=== PATIENT | female | born 1930 | race Caucasian/White ===

== ENCOUNTER 2016-11-16 07:34 | Inpatient (IN) | payer OTHER, MEDICARE ==
[~2016-11-16] VITALS: Ht 152.4 cm; Wt 38.1 kg
[~2016-11-16 07:34] MED LIST: ABILIFY5 M1 PO; AMIODARONE HCL200 M1 PO; AUGMENTIN 500M500 MG PO; BACTRIM DS 8001 TAB PO; BUMETANIDE0.5 M1 PO; CIPRO 500MG (E500 MG PO; CIPROFLOXACIN500 MG PO; COUMADIN 1 MG TA1 MG PO; COUMADIN2 M1 PO; CYMBALTA 30 MG30 MG PO; CYMBALTA30 M1 PO; DETROL LA4 M1 PO; DULCOLAX5 M1 PO; DULOXETINE HCL60 MG PO; ELIQUIS2.5 M1 PO; FLEXERIL 5MG TAB5 MG PO; HYDROCODON-ACE1 EAC6 PO; LOPRESSOR 12.12.5 MG PO; LOPRESSOR 25MG25 MG PO; LYRICA PO; MACROBID100 MG PO; MOVANTIK25 M1 PO; NEURONTIN100 MG PO; NORCO 325 MG-51 TAB PO; OXYCODONE H5 MG/5 ML PO; PERCOCET 325 MG1 TA2 PO; PROTONIX40 M3 PO; ROZEREM8 MG PO; TRAZODONE100 MG PO; TYLENOL XSTR500 MG PO; VALIUM2 M1 PO; VALIUM2 MG PO; VALTREX500 M1 PO; VALTREX500 MG PO; VITAMIN D1000 IU PO; WARFARIN SODIUM1 M1 PO; XANAX 0.25MG0.25 MG PO; ZITHROMAX500 MG PO
--- NOTE | 2016-11-16 07:42 | NUR ---
86 Y/O FEMALE C/O URI SYMPTOMS X 2 DAYS; SAW PRIMARY CARE DOCTOR AND WAS TOLD SHE HAS "BORDERLINE PNEUMONIA". ON ANTIBIOTICS BUT STATES THE COUGH CONTINUES, NOW WITH GREEN PHLEGM. REPORTS NO APPETITE AND NAUSEA. DENIES FEVERS.
--- NOTE | 2016-11-16 07:45 | ED INFLUENZA/URI COMPLAINT ---
History of Present Illness General Chief Complaint: Upper Respiratory Sx/Fever Stated Complaint: URI X2WKS Source: patient Exam Limitations: no limitations Vital Signs & Intake/Output Vital Signs & Intake/Output Vital Signs Date Time Temp Pulse Resp B/P Pulse O2 O2 Flow FiO2 Ox Delivery Rate 11/17 09 73 132/68 11/17 09 73 132/68 11/17 0631 97.6 92 20 144/80 94 Nasal 2.0L Cannula 11/17 0000 94 Nasal 2.0L Cannula 11/169 97.3 88 22 186/98 94 Nasal 2.0L Cannula 11/16 2117 88 186/98 11/16 2009 Room Air 11/16 1424 98.4 79 18 140/68 90 Room Air 11/16 1143 97.5 75 20 130/70 92 Room Air 11/16 1115 99.2 88 20 160/70 99 Room Air Room Air 11/16 1110 88 160/70 11/16 1110 88 160/70 ED Intake and Output 11/17 0000 11/16 1200 Intake Total 350 0 Output Total 1250 Balance -900 0 Intake, IV 10 Intake, Oral 340 0 Output, Urine 1250 Patient 84 lb 0.01 oz Weight Allergies Coded Allergies: Iodinated Contrast Media - Oral and (IODINATED CONTRAST MEDIA - IV DYE) (Severe, HEART STOPPED 03/22/16) morphine (Severe, COLLAPSE 11/05/15) Reconcile Medications Amiodarone (Cordarone) 200 MG TABLET 1 TAB PO DAILY afib (Reported) Apixaban (Eliquis) 2.5 MG TABLET 1 TAB PO BID BLOOD THINNER (Reported) Aripiprazole (Abilify) 5 MG TABLET 5 MG PO DAILY ANXIETY (Reported) Bisacodyl (Dulcolax) 5 MG TABLET.DR 1 TAB PO QAM GI (Reported) Bumetanide 0.5 MG TABLET 1 TAB PO DAILY WATER PILL (Reported) Cholecalciferol (Vitamin D3) 1,000 UNIT TABLET 2 TAB PO DAILY BONE HEALTH Duloxetine Hydrochloride (Cymbalta) 30 MG CAPSULE.DR 90 MG PO DAILY MENTAL HEALTH (Reported) Hydrocodone/Acetaminophen (Hydrocodon-Acetaminoph 7.5-300) 7.5 MG-300 MG TABLET 1 TAB PO Q8P PRN PAIN (Reported) Metoprolol Tartrate (Lopressor) 25 MG TABLET 12.5 MG PO BID BLOOD PRESSURE Naloxegol Oxalate (Movantik) 25 MG TABLET 1 TAB PO DAILY CONSTIPATION ( Reported) Pantoprazole Sodium (Protonix) 40 MG TABLET.DR 1 TAB PO DAILY REFLUX ( Reported) Reason to Stop at ADM: ON OMEPRAZOLE Valacyclovir Hydrochloride (Valtrex) 500 MG TABLET 1 TAB PO AT BEDTIME SHINGLES PREVENTION (Reported) Triage Note: 86 Y/O FEMALE C/O URI SYMPTOMS X 2 DAYS; SAW PRIMARY CARE DOCTOR AND WAS TOLD SHE HAS "BORDERLINE PNEUMONIA". ON ANTIBIOTICS BUT STATES THE COUGH CONTINUES, NOW WITH GREEN PHLEGM. REPORTS NO APPETITE AND NAUSEA. DENIES FEVERS. Triage Nurses Notes Reviewed? yes Onset: Gradual Duration: week(s): (1), worse persistent since (LAST 2 DAYS) Timing: recent history Severity: severe Associated Symptoms: cough, shortness of breath HPI: This is an 86-year-old female presents here with progressive worsening symptoms of cough, productive sputum of yellowish green material, night sweats and subjective fevers. She does short of breath and has been able sleep last 2 nights. She also complains of very diminished appetite and she feels nauseous. She is on day 5 of ciprofloxacin was given to her by her primary care doctor for pneumonia. 5 days ago she had an outpatient x-ray that that she had a "touch of pneumonia". Denies any chest pain or palpitations. She admits to feeling very weak. Past History Travel History Traveled to [place] past 21 day No Medical History Any Pertinent Medical History? see below for history Neurological: NONE EENT: NONE Cardiovascular: AFIB, CHF, hypertension, ANGIOPLASTY Respiratory: pneumonia Gastrointestinal: GERD Hepatic: NONE Renal: NONE Musculoskeletal: CHRONIC RIGHT SHOULDER PAIN, DEFORMITY, HISTORY OF HUMERUS FRACTURE Psychiatric: chronic pain disorder, depression Blood Disorders: NONE Cancer(s): NONE Other Medical Hx: Shingles History of MRSA: No History of VRE: No History of CDIFF: No Surgical History Surgical History: ANGIOPLASTY R ARM SURGERY right shoulder surgery Psychosocial History Who do you live with Patient/Self Services at Home [employer] What is your primary language Ukrainian Tobacco Use: Quit >30 days ago ETOH Use: 2 DRINKS PER DAY OF WHITE WINE Family History Family History, If Any: MOTHER FH: CAD (coronary artery disease) FATHER FH: CAD (coronary artery disease) Hx Contributory? No Review of Systems Review of Systems Constitutional: Reports: chills. EENTM: Reports: no symptoms. Respiratory: Reports: cough, short of breath, sputum production. Cardiovascular: Denies: chest pain. GI: Reports: nausea. Denies: abdominal pain, vomiting. Genitourinary: Reports: no symptoms. Musculoskeletal: Reports: no symptoms. Skin: Reports: no symptoms. Neurological/Psychological: Reports: no symptoms. Hematologic/Endocrine: Denies: bruising, bleeding, polyuria, polydipsia. Immunologic/Allergic: Denies: splenectomy. All Other Systems: Reviewed and Negative Physical Exam Physical Exam General Appearance: well developed/nourished, alert, awake Head: atraumatic, normal appearance Eyes: Bilateral: normal appearance, PERRL, EOMI. Ears, Nose, Throat: normal ENT inspection Neck: normal inspection, supple, full range of motion Respiratory: decreased breath sounds, wheezing Cardiovascular: regular rate/rhythm Peripheral Pulses: 2+ radial (R), 2+ radial (L) Gastrointestinal: normal bowel sounds, soft, non-tender Extremities: normal inspection, normal capillary refill, normal range of motion, no edema Neurologic/Psych: no motor/sensory deficits, awake, alert, oriented x 3 Skin: intact, normal color, warm/dry Core Measures Severe Sepsis Present: No Septic Shock Present: No ED Sepsis Exam Date of Focused Sepsis Exam: 11/16/16 Time of Focused Sepsis Exam: 0800 Sepsis Cardiac Exam: Regular Rate/Rhythm Sepsis Resp Exam: WHEEZING Sepsis Cap Refill Exam: <2 Sec Sepsis Peripheral Pulse Exam: Normal Sepsis Peripheral Pulse Location: Radial Sepsis Skin Color Exam: Normal for Ethnicity Skin Temp/Moisture Exam: Warm/Dry Progress Differential Diagnosis: pneumonia, ZION, DEHYDRATION, FAILURE OF OUTPATIENT ANTIBIOTIC TREATMENT Plan of Care: Orders Procedure Date/time Status THERAPIST ORDERS 11/16 2022 Complete OXYGEN SETUP (GEN) 11/16 2022 Complete RT: Reevaluation 11/16 2009 Active RT: Evaluation 11/16 2009 Active Vital Signs 11/16 1243 Active Teach/Educate 11/16 1243 Active Pain Treatment and Response 11/16 1243 Active Nutritional Intake, Monitor 11/16 124 Active Isolation 11/16 1243 Active Intake & Output 11/16 1243 Active Patient Care Conference 11/16 1243 Active Activity/Ambulation 11/16 1243 Active Current Medications Sig/Letty Start time Last Medication Dose Stop Time Status Admin Mirtazapine 7.5 MG AT BEDTIME PRN 11/17 1045 CAN (Remeron) Ramelteon 8 MG AT BEDTIME PRN 11/17 1045 AC (Rozerem) Albuterol Sulfate 3 ML TID PRN 11/16 2044 AC (Proventil) Laboratory Tests 11/16/16 1351: Urine Color YEL, Urine Clarity CLEAR, Urine pH 6.5, Ur Specific Mcfarland 1.025, Urine Protein NEG, Urine Ketones NEG, Urine Nitrite NEG, Urine Bilirubin NEG, Urine Urobilinogen 0.2, Ur Leukocyte Esterase NEG, Ur Microscopic EXAM NOT REQUIRED, Urine Hemoglobin NEG, Urine Glucose NEG Microbiology 11/16 135 URINE ROUT: Legionella Antigen - RES 11/16 135 URINE ROUT: Streptococcus pneumoniae Antigen (M - RES 11/16 135 URINE ROUT: Urine Culture - RES 11/16 1300 LOWER RESP: Respiratory Culture - RES GRAM NEGATIVE RODS YEAST 11/16 1300 LOWER RESP: Gram Stain - RES Diagnostic Imaging: Viewed by Me: Radiology Read. Discussed w/RAD: Radiology Read. CXR Impression: PATIENT: SANDHYA COLLINS PRESENT AGE: 86 PATIENT ACCOUNT NO: [id number] : 29 LOCATION: [facility] ORDERING PHYSICIAN: MERLY MAGALLON MD SERVICE DATE: 11/16/16 EXAM TYPE: RAD - XRY-CHEST XRAY , PA AND LATERAL EXAMINATION: XR CHEST CLINICAL INFORMATION: Cough and sweats. Assess for pneumonia. COMPARISON: Chest x-ray 08/11/2016. TECHNIQUE: AP and lateral views of the chest were obtained. FINDINGS: The lung chaudhari are hyperexpanded bilaterally, and there is flattening of the hemidiaphragms and retrosternal air trapping, consistent with COPD. The study redemonstrates the opacification in the right upper lobe medially, consistent with pleural thickening and bronchiectatic changes. These findings appear similar compared to the prior study. There is a linear opacity in the left lower lobe, consistent with atelectasis and demonstrated on prior imaging. There is new opacity in the right midzone extending laterally. Calcification and bronchiectasis in the right middle lobe are redemonstrated, although the right lobe is suboptimally assessed as the patient is unable to lift her right arm. The cardiac silhouette is normal in size. The aortic arch is calcified and unfolded. There are no pleural effusions. There are stable sequelae of a right shoulder hemiarthroplasty. There are multilevel degenerative changes in the thoracic spine. IMPRESSION: 1. There is new patchy opacity in the right midzone, which may be consistent with developing consolidation. 2. The study redemonstrates bronchiectasis and pleural thickening in the right upper lobe medially and there is calcification and atelectasis in the right middle lobe. There is evidence of COPD. DICTATED BY: CAM STILL MD DATE/TIME DICTATED:11/16/16822 [employer] DIRECTOR:OZZIE DATE/TIME TRANSCRIBED:11/16/16822 CONFIDENTIAL, DO NOT COPY WITHOUT APPROPRIATE AUTHORIZATION. <Electronically signed in Other Vendor System> SIGNED BY: CAM STILL MD 11/16/16835 Initial ED EKG: NSR, INFERIOR/ANTERIOR Q WAVES Prior EKG: unchanged Departure Departure Time of Disposition: 905 Disposition: STILL A PATIENT Condition: Stable Clinical Impression Primary Impression: Pneumonia Referrals: MICHELLE HENDRICKS,MARINO Carty (PCP/Family) Departure Forms: Customer Survey General Discharge Information Admission Note Spoke With: TAYLOR ECHAVARRIA MD Documentation of Exam: Documentation of any treatments & extenuating circumstances including Concerns Regarding Discharge (functional status, medication knowledge or non-compliance, living conditions, etc.) that warrant an admission rather than observation: [TRC /NEBS, IV ABX, OXYGEN, GENTLE HYDRATION, MONITOR I/O, F/U CULTURES]
--- NOTE | 2016-11-16 07:47 | NUR ---
DR. MAGALLON AT BEDSIDE FOR EVAL.
--- NOTE | 2016-11-16 07:59 | NUR ---
PT TO XRAY VIA STRETCHER NOW.
--- NOTE | 2016-11-16 08:23 | NUR ---
BLOOD WORK DRAWN AND SENT TO LAB: SST, LAV, BLUE, RAMIREZ AND FIRST SET OF BLOOD CULTURES. RESP AT BEDSIDE FOR TREATMENT.
[2016-11-16 08:33] LABS: ABSOLUTE BASOPHIL COUNT 0 /CUMM (0.0-0.2); ABSOLUTE EOSINOPHIL COUNT 0.1 /CUMM (0.0-0.7); ABSOLUTE GRANULOCYTE CT 8.7 /CUMM (1.4-6.5); ABSOLUTE LYMPH COUNT 0.9 /CUMM (1.2-3.4); ABSOLUTE MONOCYTE COUNT 0.8 /CUMM (0.10-0.60); BASOPHIL % 0.2 % (0.0-2.0); EOSINOPHIL % 0.9 % (0-5); GRANULOCYTE % 82.4 % (42.2-75.2); HEMATOCRIT 42.9 % (37-47); MEAN CORPUSCULAR VOLUME 96.8 FL (81.0-99.0); MEAN PLATELET VOLUME 7.6 FL (7.4-10.4); PLATELET COUNT 281 /CUMM (130-400); RED BLOOD CELL CT 4.43 /CUMM (4.20-5.40); WHITE BLOOD CELL COUNT 10.5 /CUMM (4.8-10.8)
--- NOTE | 2016-11-16 08:36 | RADIOLOGY REPORT ---
EXAMINATION: XR CHEST CLINICAL INFORMATION: Cough and sweats. Assess for pneumonia. COMPARISON: Chest x-ray 08/11/2016. TECHNIQUE: AP and lateral views of the chest were obtained. FINDINGS: The lung chaudhari are hyperexpanded bilaterally, and there is flattening of the hemidiaphragms and retrosternal air trapping, consistent with COPD. The study redemonstrates the opacification in the right upper lobe medially, consistent with pleural thickening and bronchiectatic changes. These findings appear similar compared to the prior study. There is a linear opacity in the left lower lobe, consistent with atelectasis and demonstrated on prior imaging. There is new opacity in the right midzone extending laterally. Calcification and bronchiectasis in the right middle lobe are redemonstrated, although the right lobe is suboptimally assessed as the patient is unable to lift her right arm. The cardiac silhouette is normal in size. The aortic arch is calcified and unfolded. There are no pleural effusions. There are stable sequelae of a right shoulder hemiarthroplasty. There are multilevel degenerative changes in the thoracic spine. IMPRESSION: 1. There is new patchy opacity in the right midzone, which may be consistent with developing consolidation. 2. The study redemonstrates bronchiectasis and pleural thickening in the right upper lobe medially and there is calcification and atelectasis in the right middle lobe. There is evidence of COPD.
--- NOTE | 2016-11-16 08:38 | NUR ---
FLU SWAB AND SECOND SET OF BLOOD CULTURES SENT TO LAB NOW.
--- NOTE | 2016-11-16 09:50 | NUR ---
SERO FROM HOUSE STAFF AT BEDSIDE FOR EVAL.
--- NOTE | 2016-11-16 10:05 | History & Physical ---
ILDEFONSO HENDRICKS,SAMM 11/16/16 1005: General Information and HPI MD Statement: I have seen and personally examined SANDHYA COLLINS and documented this H&P. The patient is a 86 year old F who presented with a patient stated chief complaint of [I have a bad cough]. History of Present Illness: This is an 86-year-old lady with a history of diastolic heart failure, atrial fibrillation, anxiety, depression, severe osteoporosis, right frozen shoulder secondary to fall over 4 years ago that presents to the emergency room this morning for evaluation with a chief complaint of cough and tactile fevers over the course of the last 5 days. She states that she saw her primary care physician who started her on ciprofloxacin 5 days ago but her symptoms have not alleviated. She admits to having greenish sputum which is now switch to yellow. States that she does have tactile fevers however has not recorded any temperatures at home. Also admits to mild shortness of breath. No exacerbating or alleviating factors. Her lunchroom monitor is Dr. Hensley. Allergies/Medications Allergies: Coded Allergies: Iodinated Contrast Media - Oral and (IODINATED CONTRAST MEDIA - IV DYE) (Severe, HEART STOPPED 03/22/16) morphine (Severe, COLLAPSE 11/05/15) Past History Travel History Traveled to [place] past 21 day No Medical History Neurological: NONE EENT: NONE Cardiovascular: AFIB, CHF, hypertension, ANGIOPLASTY Respiratory: pneumonia Gastrointestinal: GERD Hepatic: NONE Renal: NONE Musculoskeletal: CHRONIC RIGHT SHOULDER PAIN, DEFORMITY, HISTORY OF HUMERUS FRACTURE Psychiatric: chronic pain disorder, depression Blood Disorders: NONE Cancer(s): NONE Other Medical Hx: Shingles History of MRSA: No History of VRE: No History of CDIFF: No Surgical History Surgical History: ANGIOPLASTY R ARM SURGERY right shoulder surgery Past Family/Social History Family History Relations & Conditions if any MOTHER FH: CAD (coronary artery disease) FATHER FH: CAD (coronary artery disease) Psychosocial History 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 Needs Assist: toileting, bathing. Ambulation: walker IADLs Independent: telephone. Needs Assist: shopping, housework, finances, food prep, transportation, medication admin. Review of Systems Review of Systems Constitutional: Reports: see HPI. Exam & Diagnostic Data Last 24 Hrs of Vital Signs/I&O Vital Signs Date Time Temp Pulse Resp B/P Pulse O2 O2 Flow FiO2 Ox Delivery Rate 11/16 0900 93 Room Air Room Air 11/16 0857 97.0 75 14 128/62 93 Room Air 11/16 0821 97 11/16 0738 96.6 72 16 128/56 94 Room Air Intake & Output 11/16 1600 11/16 0800 11/16 0000 Intake Total 0 Output Total Balance 0 Intake, Oral 0 Patient 84 lb 0.01 oz Weight Physical Exam General Appearance Alert, Oriented X3, Cooperative, Mild Distress HEENT Atraumatic, PERRLA, EOMI Cardiovascular Regular Rate, Normal S1, Normal S2 Lungs B/L FAINT WHEEZING AND DIFFUSE RONCHII Abdomen Normal Bowel Sounds, Soft, No Tenderness Extremities No Clubbing, No Cyanosis, No Edema Last 24 Hrs of Labs/Maxim: Laboratory Tests 11/16/16 0820: Anion Gap 13, Estimated GFR > 60, BUN/Creatinine Ratio 17.5, Glucose 93, Calcium 9.7, Total Bilirubin 0.7, AST 37 H, ALT 42, Alkaline Phosphatase 113, Total Protein 8.0, Albumin 4.3, Globulin 3.7, Albumin/Globulin Ratio 1.2, CBC w Diff NO MAN DIFF REQ, RBC 4.43, MCV 96.8, MCH 33.0 H, RDW 15.0 H, MPV 7.6, Gran % 82.4 H, Lymphocytes % 9.0 L, Monocytes % 7.5, Eosinophils % 0.9, Basophils % 0.2, Absolute Granulocytes 8.7 H, Absolute Lymphocytes 0.9 L, Absolute Monocytes 0.8 H, Absolute Eosinophils 0.1, Absolute Basophils 0, PUBS MCHC 34.0 Microbiology 11/16 917 LOWER RESP: Respiratory Culture - ORD 11/16 917 LOWER RESP: Gram Stain - ORD 11/16 829 NASOPHARYN: Influenza Virus A & B Rapid Smear - COMP 11/16 829 BLOOD: Blood Culture - RECD 11/17 819 BLOOD: Blood Culture - RECD Diagnostic Data EKG Results Rate 68, P of 160, tours 88, QTC 447 and sign sinus rhythm, left atrial abnormality, old Q waves in leads 3, aVF, V2, V3 CXR Results PATIENT: SANDHYA COLLINS PRESENT AGE: 86 PATIENT ACCOUNT NO: [id number] : 29 LOCATION: [facility] ORDERING PHYSICIAN: MERLY MAGALLON MD SERVICE DATE: 11/16/16 EXAM TYPE: RAD - XRY-CHEST XRAY, PA AND LATERAL EXAMINATION: XR CHEST CLINICAL INFORMATION: Cough and sweats. Assess for pneumonia. COMPARISON: Chest x-ray 08/11/2016. TECHNIQUE: AP and lateral views of the chest were obtained. FINDINGS: The lung chaudhari are hyperexpanded bilaterally, and there is flattening of the hemidiaphragms and retrosternal air trapping, consistent with COPD. The study redemonstrates the opacification in the right upper lobe medially, consistent with pleural thickening and bronchiectatic changes. These findings appear similar compared to the prior study. There is a linear opacity in the left lower lobe, consistent with atelectasis and demonstrated on prior imaging. There is new opacity in the right midzone extending laterally. Calcification and bronchiectasis in the right middle lobe are redemonstrated, although the right lobe is suboptimally assessed as the patient is unable to lift her right arm. The cardiac silhouette is normal in size. The aortic arch is calcified and unfolded. There are no pleural effusions. There are stable sequelae of a right shoulder hemiarthroplasty. There are multilevel degenerative changes in the thoracic spine. IMPRESSION: 1. There is new patchy opacity in the right midzone, which may be consistent with developing consolidation. 2. The study redemonstrates bronchiectasis and pleural thickening in the right upper lobe medially and there is calcification and atelectasis in the right middle lobe. There is evidence of COPD. DICTATED BY: CAM STILL MD DATE/TIME DICTATED:11/16/16822 STEWARD/STEWARDESS BATH:OZZIE DATE/TIME TRANSCRIBED:11/16/16822 CONFIDENTIAL, DO NOT COPY WITHOUT APPROPRIATE AUTHORIZATION. <Electronically signed in Other Vendor System> SIGNED BY: CAM STILL MD 11/16/16 0836 Assessment/Plan Assessment: Assessment- 1. Community-acquired pneumonia 2. Atrial fibrillation 3. Stage I diastolic heart failure, chronic 4. Chronic pain secondary to right frozen shoulder and severe osteoporosis 5. Hypertension 6. 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 GERD Plan- General med admit Vitals per protocol Hackett culture- urinalysis, urine culture, urine strep and Legionella antigens; blood cultures 2, flu swab, sputum culture TRC evaluation IV ceftriaxone and Zithromax Continue all home meds Pain pathway, continue patient's home pain meds Heart healthy diet DVT prophylaxis being addressed with Christel DNR/DNI As Ranked By This Provider Problem List: 1. Pneumonia Core Measures/Miscellaneous Acute Coronary Syndrome ACS Diagnosis: No Cerebrovascular Accident CVA/TIA Diagnosis: No Congestive Heart Failure CHF Diagnosis: No Venous Thromboembolism VTE Risk Factors: Acute medical illness, Age > 40 No [facility] VTE prophylaxis d/t: No contraindications No VTE Pharm Prophylaxis d/t: No contraindications VTE Diagnosis: No VTE Type: NONE VTE Confirmed by (Test): NONE Severe Sepsis Severe Sepsis Present: No Septic Shock Septic Shock Present: No Miscellaneous Documentation Attending Case Discussed With: DR. HAMMOND Primary Care Physician: MARINO MARTINEZ MD Patient sees these Specialists DR. HENSLEY (CARDIO) Level of Patient Care: General Medicine Resident Review Statement Resident Statement: examined this patient RAFIQ HAMMOND MD 11/16/16 1218: General Information and HPI Allergies/Medications Home Med list Amiodarone (Cordarone) 200 MG TABLET 1 TAB PO DAILY afib (Reported) Apixaban (Eliquis) 2.5 MG TABLET 1 TAB PO BID BLOOD THINNER (Reported) Aripiprazole (Abilify) 5 MG TABLET 5 MG PO DAILY ANXIETY (Reported) Bisacodyl (Dulcolax) 5 MG TABLET.DR 1 TAB PO QAM GI (Reported) Bumetanide 0.5 MG TABLET 1 TAB PO DAILY WATER PILL (Reported) Cholecalciferol (Vitamin D3) 1,000 UNIT TABLET 2 TAB PO DAILY BONE HEALTH Duloxetine Hydrochloride (Cymbalta) 30 MG CAPSULE.DR 90 MG PO DAILY MENTAL HEALTH (Reported) Hydrocodone/Acetaminophen (Hydrocodon-Acetaminoph 7.5-300) 7.5 MG-300 MG TABLET 1 TAB PO Q8P PRN PAIN (Reported) Metoprolol Tartrate (Lopressor) 25 MG TABLET 12.5 MG PO BID BLOOD PRESSURE Naloxegol Oxalate (Movantik) 25 MG TABLET 1 TAB PO DAILY CONSTIPATION ( Reported) Pantoprazole Sodium (Protonix) 40 MG TABLET.DR 1 TAB PO DAILY REFLUX ( Reported) Reason to Stop at ADM: ON OMEPRAZOLE Valacyclovir Hydrochloride (Valtrex) 500 MG TABLET 1 TAB PO AT BEDTIME SHINGLES PREVENTION (Reported) Attending MD Review Statement Attending Statement Attending MD Statement: examined this patient, discuss w/resident/PA/OBSTETRICIAN, agreed w/resident/PA/OBSTETRICIAN, discussed with family, reviewed EMR data (avail), reviewed images, amended to note Attending Assessment/Plan: 86 y/o F with pmh sig for diastolic heart failure, atrial fibrillation on Eliquis, anxiety, depression, severe osteoporosis, history of fall 4 years ago that led to frozen right shoulder who completely treated for possible bronchitis as an outpatient with ciprofloxacin by her primary care doctor who continues to feel poor with coughing productive of yellowish sputum as well as subjective fevers. Patient has been feeling weak and tired and has no appetite. He was also feeling nauseous every morning. She was in the emergency room because she was not getting better. In the emergency room she was afebrile with white count normal but her chest x-ray was consistent with a new patchy opacity in the right midzone, which may be consistent with developing consolidation. She denies any chest pain but does complain of chronic back pain. Her son is present at the bedside. Vital Signs Date Time Temp Pulse Resp B/P Pulse O2 O2 Flow FiO2 Ox Delivery Rate 11/16 1143 97.5 75 20 130/70 92 Room Air 11/16 1115 99.2 88 20 160/70 99 Room Air Room Air 11/16 1110 88 160/70 11/16 1110 88 160/70 11/16 0900 93 Room Air Room Air 11/16 0857 97.0 75 14 128/62 93 Room Air 11/16 0821 97 11/16 0738 96.6 72 16 128/56 94 Room Air on exam; aox3, nad. cv; s1,s2, rrr resp; + crackles at right base upto mid lung zone. abd: soft, nt, bs+ ext; no edema. Laboratory Tests 11/16 0820 Chemistry Sodium (137 - 145 mmol/L) 136 L Potassium (3.5 - 5.1 mmol/L) 4.1 Chloride (98 - 107 mmol/L) 97 L Carbon Dioxide (22 - 30 mmol/L) 26 Anion Gap (5 - 16) 13 BUN (7 - 17 mg/dL) 14 Creatinine (0.5 - 1.0 mg/dL) 0.8 Estimated GFR (>60 ml/min) > 60 BUN/Creatinine Ratio (7 - 25 %) 17.5 Glucose (65 - 99 mg/dL) 93 Calcium (8.4 - 10.2 mg/dL) 9.7 Total Bilirubin (0.2 - 1.3 mg/dL) 0.7 AST (14 - 36 U/L) 37 H ALT (9 - 52 U/L) 42 Alkaline Phosphatase (<127 U/L) 113 Troponin I (< 0.11 ng/ml) < 0.01 Total Protein (6.3 - 8.2 g/dL) 8.0 Albumin (3.5 - 5.0 g/dL) 4.3 Globulin (1.9 - 4.2 gm/dL) 3.7 Albumin/Globulin Ratio (1.1 - 2.2 %) 1.2 Hematology CBC w Diff NO MAN DIFF REQ WBC (4.8 - 10.8 /CUMM) 10.5 RBC (4.20 - 5.40 /CUMM) 4.43 Hgb (12.0 - 16.0 G/DL) 14.6 Hct (37 - 47 %) 42.9 MCV (81.0 - 99.0 FL) 96.8 MCH (27.0 - 31.0 PG) 33.0 H RDW (11.5 - 14.5 %) 15.0 H Plt Count (130 - 400 /CUMM) 281 MPV (7.4 - 10.4 FL) 7.6 Gran % (42.2 - 75.2 %) 82.4 H Lymphocytes % (20.5 - 51.1 %) 9.0 L Monocytes % (1.7 - 9.3 %) 7.5 Eosinophils % (0 - 5 %) 0.9 Basophils % (0.0 - 2.0 %) 0.2 Absolute Granulocytes (1.4 - 6.5 /CUMM) 8.7 H Absolute Lymphocytes (1.2 - 3.4 /CUMM) 0.9 L Absolute Monocytes (0.10 - 0.60 /CUMM) 0.8 H Absolute Eosinophils (0.0 - 0.7 /CUMM) 0.1 Absolute Basophils (0.0 - 0.2 /CUMM) 0 PUBS MCHC (33.0 - 37.0 G/DL) 34.0 CXR: IMPRESSION: 1. There is new patchy opacity in the right midzone, which may be consistent with developing consolidation. 2. The study redemonstrates bronchiectasis and pleural thickening in the right upper lobe medially and there is calcification and atelectasis in the right middle lobe. There is evidence of COPD. EKG>>> Sinus rythm. No acute ST T changes. A/P; 86 y/o F with pmh sig for diastolic heart failure, atrial fibrillation, anxiety, depression, severe osteoporosis, history of fall 4 years ago that led to frozen right shoulder who is admitted with community-acquired pneumonia. Patient will be admitted to medicine floor. Flu swab negative. Sputum cultures will be obtained. Patient will be started on IV ceftriaxone and azithromycin and she received these antibiotics in the emergency room. Please order TRC nebs. Currently she is not requiring any oxygen. Please confirm and continue her home medications. Patient will be encouraged to ambulate. DVT prophylaxis: Christel. Code: DNR/I.
--- NOTE | 2016-11-16 10:23 | NUR ---
[facility] ASSIGNMENT [phone]
--- NOTE | 2016-11-16 10:37 | NUR ---
MEDS WILL BE READY IN TEN MINUTES PER PHARM.
--- NOTE | 2016-11-16 10:57 | NUR ---
REPORT GIVEN TO CARLOS SMITH.
[2016-11-16 11:43] VITALS: BP 130/70
--- NOTE | 2016-11-16 12:11 | Admission Certification ---
Admission Certification Certification Statement - As attending physician, I certify that at the time of - admission, based on clinical presentation, severity of - symptoms, need for further diagnostic testing and - therapeutic interventions, and risk of adverse outcomes - without in-hospital treatment, in my clinical assessment, - this patient requires an acute hospital stay for a minimum - of two nights or longer. I have also considered psychsocial - factors such as support system, advanced age, financial - issues, cognitive issues, and failed out-patient treatments, - past re-admission history, safety of patient, and lack of - compliance as applicable. Specific rationale supporting this admission is: Patient admitted with community acquired pneumonia failing outpatient treatment. Needs IV antibiotics.
--- NOTE | 2016-11-16 13:32 | NUR ---
PATIENT ADMITTED TO FLOOR ROOM 223-1 AT 1230 FROM ER. PATIENT ALERT AND ORIENTED. PATIENT VITALS ARE STABLE AND ORIENTATED TO ROOM AND VERBALIZES UNDERSTANDING.
[2016-11-16 14:24] VITALS: BP 140/68
--- NOTE | 2016-11-16 22:00 | NUR ---
PT O2SAT 85% RA, RESPIRATORY PLACED ON 2LNC. PT O2SAT @ 94% 2LNC. WILL CONTINUE TO MONITOR THIS SHIFT.
[2016-11-16 22:39] VITALS: BP 186/98
--- NOTE | 2016-11-17 | NUR ---
AT 2300, PT DID NOT REMEMBER 2200 MEDICATIONS AND THAT SHE TOOK THEM. REFUSED ALPS, AND ATTEMPTED TO AMBULATE. PT MAX Ax1 TO BSC. BED ALARM IN PLACE.
--- NOTE | 2016-11-17 02:36 | NUR ---
0200, PT GOT AGITATED THAT SHE COULD NOT WALK AROUND AND STARTED SHAKING THE SIDE RAILS. SHE DID NOT HAVE TO USE THE BSC, COULD NOT SAY WHERE SHE WANTED TO GO, JUST WANTED TO GO. STAFF SAT WITH HER UNTIL SHE FELL ASLEEP. ANNIKA JENSEN MD NOTIFIED. WILL CONTINUE TO MONITOR.
[2016-11-17 06:31] VITALS: BP 144/80
--- NOTE | 2016-11-17 07:06 | PN- Housestaff ---
Subjective Follow-up For: Community acquired pneumonia Subjective: No acute events overnight. Patient seen and examined today. She feels better overall. She continues to have a cough, but it is productive of only scant clear sputum and improved since yesterday. Her appetite continues to be poor. SOB has improved as well but she remains on 2 L NC. Of note patient reports chronic cough productive of yellow sputum for the past few months. Review of Systems Constitutional: Reports: see HPI. Objective Last 24 Hrs of Vital Signs/I&O Vital Signs Date Time Temp Pulse Resp B/P Pulse O2 O2 Flow FiO2 Ox Delivery Rate 11/17 1436 92 Nasal 2.0L Cannula 11/17 1407 98.1 74 20 120/80 94 Nasal 2.0L Cannula 11/17 0926 73 132/68 11/17 0926 73 132/68 11/17 0800 Nasal 2.0L Cannula 11/17 0631 97.6 92 20 144/80 94 Nasal 2.0L Cannula 11/17 0000 94 Nasal 2.0L Cannula 11/16 2239 97.3 88 22 186/98 94 Nasal 2.0L Cannula 11/16 2117 88 186/98 11/16 2009 Room Air Intake & Output 11/17 1600 11/17 0800 11/17 0000 Intake Total 480 610 250 Output Total 400 350 800 Balance 80 260 -550 Intake, IV 10 10 Intake, Oral 480 600 240 Number 1 Bowel Movements Output, Urine 400 350 800 Physical Exam General Appearance: Alert, Oriented X3, No Acute Distress HEENT: Atraumatic, Mucous Membr. moist/pink Neck: Supple Cardiovascular: Regular Rate, Normal S1, Normal S2 Lungs: Few Crackles Appreciated at Right Lung Base Abdomen: Soft, No Tenderness, Positive Bowel Sounds Extremities: No Clubbing, No Cyanosis, No Edema Current Medications: Current Medications Sig/Letty Start time Last Medication Dose Route Stop Time Status Admin Acetaminophen/ 1 TAB Q8 11/16 1400 AC 11/17 Hydrocodone Bitart PO 0547 Albuterol Sulfate 3 ML TID 11/16 2200 AC 11/16 INH 2047 Albuterol Sulfate 3 ML TID PRN 11/16 204 AC 11/17 INH 1415 Amiodarone HCl 200 MG DAILY 11/16 1018 AC 11/17 PO 0926 Apixaban 2.5 MG BID 11/16 1018 AC 11/17 PO 0926 Aripiprazole 5 MG DAILY 11/16 1018 AC 11/17 PO 0926 Azithromycin 500 MG DAILY 11/17 1000 AC 11/17 Sodium Chloride 250 ML IV 09 Bisacodyl 5 MG QAM 11/16 1018 AC 11/17 PO 09 Bumetanide 0.5 MG DAILY 11/16 1019 AC 11/17 PO 0927 Ceftriaxone Sodium 1,000 MG DAILY 11/17 1000 AC 11/17 IV 0927 Duloxetine HCl 90 MG DAILY 11/16 1019 AC 11/17 PO 09 Metoprolol Tartrate 12.5 MG BID 11/16 1019 AC 11/17 PO 09 Mirtazapine 7.5 MG AT BEDTIME PRN 11/17 1045 CAN PO Omeprazole 40 MG DAILY AC 11/17 0700 AC 11/17 PO 0547 Polyethylene Glycol 17 GM DAILY 11/17 1000 AC 11/17 PO 09 Ramelteon 8 MG AT BEDTIME PRN 11/17 1045 AC PO Senna/Docusate Sodium 1 TAB BID 11/17 1000 AC 11/17 PO 09 Senna/Docusate Sodium 1 TAB BID PRN 11/16 1030 DC PO 11/17 0959 Valacyclovir HCl 500 MG AT BEDTIME 11/16 2200 AC 11/16 PO 2130 Last 24 Hrs of Lab/Maxim Results Last 24 Hrs of Labs/Mics: Strep pneumo and Legionella urinary antigen (11/16/16): Negative UCx (11/16/16): NGTD BCx (11/16/16): NGTD x2 Sputum Cx (11/16/16): Light growth of gram negative rods and yeast Assessment/Plan Assessment: 86 y/o F with PMHx of diastolic CHF, atrial fibrillation and right frozen shoulder who is admitted for community-acquired pneumonia. #CAP: On day 2 of IV azithromycin and ceftriaxone with significant improvement of SOB and cough. Remains afebrile. Sputum culture growing gram negative rods, speciation and susceptibilities pending. Remains on 2 L NC. * Continue azithromycin 500 mg IV daily and ceftriaxone 1 g IV daily for a total of 3 days. * Follow final sputum culture. * Wean down oxygen as tolerated. * Encourage ambulation. #Suspected bronchiectasis: CXR with evidence of bronchiectasis. History of chronic productive cough suspicious for bronchiectasis as well. * Refer to pulmonology as outpatient for further evaluation. Diet: Heart Healthy DVT PPx: Eliquis and ALPs CODE: DNR/DNI Problem List: 1. CAP (community acquired pneumonia) 2. Bronchiectasis Pain Ratin Pain Location: N/A Pain Goal: Remain pain free Pain Plan: Vicodin 1 tab PO Q8H Tomorrow's Labs & Rationales: N/A Discharge Plan Discharge Disposition: home Anticipated Discharge (Day): tomorrow
--- NOTE | 2016-11-17 11:11 | PN- Att Addend ---
Attending Addendum Attending Brief Note Patient seen and examined, overall feeling better. Less coughing. She remains afebrile but still requiring oxygen. Vital Signs Date Time Temp Pulse Resp B/P Pulse O2 O2 Flow FiO2 Ox Delivery Rate 11/17 09 73 132/68 11/17 0926 73 132/68 11/17 0631 97.6 92 20 144/80 94 Nasal 2.0L Cannula 11/17 0000 94 Nasal 2.0L Cannula 11/16 2239 97.3 88 22 186/98 94 Nasal 2.0L Cannula 11/16 2117 88 186/98 11/16 2009 Room Air 11/16 1424 98.4 79 18 140/68 90 Room Air 11/16 1143 97.5 75 20 130/70 92 Room Air 11/16 1115 99.2 88 20 160/70 99 Room Air Room Air 11/16 1110 88 160/70 11/16 1110 88 160/70 on exam; aox3, nad. cv; s1,s2, rrr resp; mild crackles at right base. abd; soft, nt, bs+ ext; no edema. Laboratory Tests 11/16 1351 Urines Urine Color (YEL,AMB,STR) YEL Urine Clarity (CLEAR) CLEAR Urine pH (5.0 - 8.0) 6.5 Ur Specific [place] (1.001 - 1.035) 1.025 Urine Protein (NEG,<30 MG/DL) NEG Urine Ketones (NEG) NEG Urine Nitrite (NEG) NEG Urine Bilirubin (NEG) NEG Urine Urobilinogen (0.1 - 1.0 EU/dl) 0.2 Ur Leukocyte Esterase (NEG) NEG Ur Microscopic EXAM NOT REQUIRED Urine Hemoglobin (NEG) NEG Urine Glucose (N MG/DL) NEG A/P; 86 y/o F with pmh sig for diastolic heart failure, atrial fibrillation, anxiety, depression, severe osteoporosis, history of fall 4 years ago that led to frozen right shoulder who is admitted with community-acquired pneumonia. Continue current antibiotics. Chest x-ray yesterday showed some evidence of bronchiectasis and now patient provides history off chronic sputum production which has been going on for last almost 6 months. After she gets discharged from the hospital on the course of antibiotics, I would recommend that she should be referred to a town clerk as she will need a full workup including pulmonary function testing and other testing for possible bronchiectasis. We will try to taper her oxygen down. Continue other current home medications. DVT prophylaxis:Eliquis. Dispo: encourage ambulation. Possible DC home tomorrow if remains stable.
[2016-11-17 14:07] VITALS: BP 120/80
--- NOTE | 2016-11-17 23:22 | NUR ---
PT CONFUSED, AGITATED, DEMANDING TO GO TO THE KITCHEN FOR HER V8 JUICE. THIS CLINICAL TRAINING SPECIALIST CHECKED THE KITCHEN FOR V8, NONE WAS THERE. WILL PASS ON TO NIGHT NURSE, GUILLE Phan
[2016-11-17 23:36] VITALS: BP 190/88
[2016-11-18 06:51] VITALS: BP 122/70
--- NOTE | 2016-11-18 07:17 | PN- Housestaff ---
AMBREEN HENDRICKS,[facility] [place] 11/18/16 0717: Subjective Follow-up For: Community-acquired pneumonia Subjective: No acute events overnight. Patient seen and examined this morning. She reports that she was able to relieve the phlegm in her throat last night. She feels better this morning, although she is still weak. She continues to have productive cough, her sputum is olive-green in color. SOB is improved and she is off oxygen. However, she desatted to 84% after ambulation on room air. Review of Systems Constitutional: Reports: see HPI. Objective Last 24 Hrs of Vital Signs/I&O Vital Signs Date Time Temp Pulse Resp B/P Pulse O2 O2 Flow FiO2 Ox Delivery Rate 11/18 0651 97.7 70 20 122/70 91 Nasal 2.0L Cannula 11/18 0000 Nasal 1.0L Cannula 11/17 2336 98.3 88 20 190/88 94 Nasal 2.0L Cannula 11/17 1855 94 Nasal 2.0L Cannula 11/17 1436 92 Nasal 2.0L Cannula 11/17 1407 98.1 74 20 120/80 94 Nasal 2.0L Cannula 11/17 0926 73 132/68 11/17 0926 73 132/68 Intake & Output 11/18 1600 11/18 0800 11/18 0000 Intake Total 240 250 Output Total 300 1 Balance -60 249 Intake, IV 10 Intake, Oral 240 240 Output, Stool 1 Output, Urine 300 Physical Exam General Appearance: Alert, Oriented X3, No Acute Distress HEENT: Atraumatic, Mucous Membr. moist/pink Neck: Supple Cardiovascular: Regular Rate, Normal S1, Normal S2 Lungs: Few Crackles Appreciated at RIght Lung Base Abdomen: Soft, No Tenderness, Positive Bowel Sounds Extremities: No Clubbing, No Cyanosis, No Edema Current Medications: Current Medications Sig/Letty Start time Last Medication Dose Route Stop Time Status Admin Acetaminophen/ 1 TAB Q8 11/16 1400 AC 11/18 Hydrocodone Bitart PO 0554 Albuterol Sulfate 3 ML TID 11/16 2200 AC 11/17 INH 1855 Albuterol Sulfate 3 ML TID PRN 11/16 2045 AC 11/17 INH 1415 Amiodarone HCl 200 MG DAILY 11/16 1018 AC 11/17 PO 0926 Apixaban 2.5 MG BID 11/16 1018 AC 11/17 PO 2205 Aripiprazole 5 MG DAILY 11/16 1018 AC 11/17 PO 0926 Azithromycin 500 MG DAILY 11/17 1000 AC 11/17 Sodium Chloride 250 ML IV 0929 Bisacodyl 5 MG QAM 11/16 1018 AC 11/17 PO 09 Bumetanide 0.5 MG DAILY 11/16 1019 AC 11/17 PO 0927 Ceftriaxone Sodium 1,000 MG DAILY 11/17 1000 AC 11/17 IV 0927 Duloxetine HCl 90 MG DAILY 11/16 1019 AC 11/17 PO 09 Metoprolol Tartrate 12.5 MG BID 11/16 1019 AC 11/17 PO 2206 Mirtazapine 7.5 MG AT BEDTIME PRN 11/17 1045 CAN PO Omeprazole 40 MG DAILY AC 11/17 0700 AC 11/18 PO 0550 Polyethylene Glycol 17 GM DAILY 11/17 1000 AC 11/17 PO 09 Ramelteon 8 MG AT BEDTIME PRN 11/17 1045 AC 11/17 PO 2208 Senna/Docusate Sodium 1 TAB BID 11/17 1000 AC 11/17 PO 2206 Senna/Docusate Sodium 1 TAB BID PRN 11/16 1030 DC PO 11/17 0959 Valacyclovir HCl 500 MG AT BEDTIME 11/16 2200 AC 11/17 PO 2205 Last 24 Hrs of Lab/Maxim Results Last 24 Hrs of Labs/Mics: Sputum Cx (11/16/16): ESBL resistant to ceftriaxone and sensitive to Augmentin Assessment/Plan Assessment: 86 y/o F with PMHx of diastolic CHF, atrial fibrillation and right frozen shoulder who is admitted for community-acquired pneumonia. #CAP: S/p 3 days of azithromycin and ceftriaxone. Sputum cultures growing ESBL, resistant to ceftriaxone and sensitive to Augmentin. Although oxygenation is improved, with patient satting well on room air at baseline, she continues to be hypoxic to 84% with ambulation. * Discontinue azithromycin and ceftriaxone. * Encourage ambulation. * Start augmentin 500 mg PO BID. Will need 7-day course for pneumonia. #Suspected bronchiectasis: CXR with evidence of bronchiectasis. History of chronic productive cough suspicious for bronchiectasis as well. * Outpatient referral for Dr. Hyatt given on discharge. #Mild protein-calorie malnutrition: * Nutrition following. Appreciate their recs. * Encourage PO intake. Diet: Heart Healthy DVT PPx: Eliquis and ALPs CODE: DNR/DNI Problem List: 1. CAP (community acquired pneumonia) 2. Bronchiectasis 3. Sputum culture positive for ESBL E. coli 4. Protein-calorie malnutrition, mild Pain Ratin Pain Location: N/A Pain Goal: Remain pain free Pain Plan: Vicodin 1 tab PO Q8H Tomorrow's Labs & Rationales: None Discharge Plan Discharge Disposition: home Stable for Discharge? Yes Anticipated Discharge (Day): today STEPHANY HENDRICKS,[facility] 11/18/16 1230: Attending MD Review Statement Attending Statement Attending MD Statement: examined this patient, discuss w/resident/PA/DIRECTOR DIGITAL, agreed w/resident/PA/DIRECTOR DIGITAL, discussed with family, reviewed EMR data (avail), discussed with nursing, discussed with case mgmt, reviewed images, amended to note Attending Assessment/Plan: Patient seen and examined, feels ok. Denies any complaints. Still coughing and sputum cx grew ESBL. Patient denies any SOB. O2 sats dropped upon ambulation on RA to 84%. Vital Signs Date Time Temp Pulse Resp B/P Pulse O2 O2 Flow FiO2 Ox Delivery Rate 11/18 1018 70 122/70 11/18 1018 70 122/70 11/18 0853 91 Room Air Room Air 11/18 0800 Room Air 11/18 0651 97.7 70 20 122/70 91 Nasal 2.0L Cannula 11/18 0000 Nasal 1.0L Cannula 11/17 2336 98.3 88 20 190/88 94 Nasal 2.0L Cannula 11/17 1855 94 Nasal 2.0L Cannula 11/17 1436 92 Nasal 2.0L Cannula 11/17 1407 98.1 74 20 120/80 94 Nasal 2.0L Cannula on exam; aox3, NAD. cv; s1,s2, rrr resp; some crackles at right base. abd; soft, nt, bs+ ext; no edema. no labs. A/P; 86 y/o F with pmh sig for diastolic heart failure, atrial fibrillation, anxiety, depression, severe osteoporosis, history of fall 4 years ago that led to frozen right shoulder who is admitted with community-acquired pneumonia. Sputum cx growing ESBL. Patient dropping her O2 sats on RA upon ambulation to 84 %. Will start her on PO augmentin as ESBL is sensitive to Augmentin. Will refer her to Pulm. I have notified Dr. Hyatt about outpatient referral. Continue all other current meds. DVT Px; Eliquis. D/W patient's son over the phone.
--- NOTE | 2016-11-18 07:22 | Patient Discharge Instructions ---
Discharge Instructions General Discharge Information You were seen/treated for: Community-acquired pneumonia Watch for these problems: Fever and chills Difficulty breathing Persistent cough Fatigue or weakness Loss appetite, nausea or vomiting Special Instructions: Please see your primary care physician Dr. Nguyen within one week of discharge. Please see die try out worker stamping Dr. Hyatt for your lungs within two weeks of discharge. Diet Recommended Diet: Heart Healthy Activity Activity Self Limited: Yes Additional ACTIVITY Info: As tolerated with assistance Acute Coronary Syndrome Inclusion Criteria At DC or during hospital stay patient has or had the following: ACS DIAGNOSIS No Discharge Core Measures Meds if any: Prescribed or Continued at Discharge Meds if any: NOT Prescribed or Continued at Discharge Congestive Heart Failure Inclusion Criteria At DC or during hospital stay patient has or had the following: CHF DIAGNOSIS No Discharge Core Measures Meds if any: Prescribed or Continued at Discharge Meds if any: NOT Prescribed or Continued at Discharge Cerebrovascular accident Inclusion Criteria At DC or during hospital stay patient has or had the following: CVA/TIA Diagnosis No Discharge Core Measures Meds if any: Prescribed or Continued at Discharge Meds if any: NOT Prescribed or Continued at Discharge Venous thromboembolism Inclusion Criteria VTE Diagnosis No VTE Type NONE VTE Confirmed by (Test) NONE Discharge Core Measures - Per Current guidelines, there needs to be overlap - treatment for the first 5 days of Warfarin therapy. - If discharged on Warfarin prior to 5 days of - overlap therapy, the patient will need to be - assessed for post discharge needs including - *Post discharge parental anticoagulation - *Warfarin and/or parental anticoagulation education - *Follow up date to check INR post discharge At least 5 days overlap therapy as Inpatient No Meds if any: Prescribed or Continued at Discharge Note: Overlap Therapy is Warfarin and Anticoagulant Meds if any: NOT Prescribed or Continued at Discharge
--- NOTE | 2016-11-18 12:01 | NUR ---
PT ON RA, SITTING @ 91%. PT ON RA, AMBULATION O2 @ 84%. MD CROOK NOTIFIED.
[2016-11-18] MEDS ORDERED: AUGMENTIN 500-1 EACH PO (12:14)
[2016-11-18 14:42] VITALS: BP 130/70
[2016-11-18 22:10] VITALS: BP 140/50; BP 158/72
[2016-11-19 06:46] VITALS: BP 140/70
--- NOTE | 2016-11-19 07:10 | PN- Housestaff ---
AMBREEN HENDRIKCS,[facility] 11/19/16 0709: Subjective Follow-up For: Community-acquired pneumonia Subjective: No acute events overnight. Patient seen and examined this morning. She continues to have cough productive of clear sputum. She remains comfortable on room air. Her oxygen saturation was 91-93% after ambulation on room air. Review of Systems Constitutional: Reports: see HPI. Objective Last 24 Hrs of Vital Signs/I&O Vital Signs Date Time Temp Pulse Resp B/P Pulse O2 O2 Flow FiO2 Ox Delivery Rate 11/19 0646 97.9 64 20 140/70 95 Room Air 11/19 0000 93 Room Air 11/18 2210 98.3 77 20 158/72 93 11/18 2139 98.3 83 20 158/72 11/18 1830 93 Room Air 11/18 1442 97.0 74 20 130/70 94 Room Air 11/18 1018 70 122/70 11/18 1018 70 122/70 11/18 0853 91 Room Air Room Air 11/18 0800 Room Air Intake & Output 11/19 0800 11/19 0000 11/18 1600 Intake Total 660 480 600 Output Total 200 Balance 660 480 400 Intake, Oral 660 480 600 Number 1 Bowel Movements Output, Urine 200 Patient 38.102 kg Weight Physical Exam General Appearance: Alert, Oriented X3, No Acute Distress HEENT: Atraumatic, Mucous Membr. moist/pink Neck: Supple Cardiovascular: Regular Rate, Normal S1, Normal S2 Lungs: Few Crackles Appreciated at Right Lung Base Abdomen: Soft, No Tenderness, Positive Bowel Sounds Extremities: No Clubbing, No Cyanosis, No Edema Current Medications: Current Medications Sig/Letty Start time Last Medication Dose Route Stop Time Status Admin Acetaminophen/ 1 TAB Q8 11/16 1400 AC 11/19 Hydrocodone Bitart PO 0427 Albuterol Sulfate 3 ML TID 11/16 2200 AC 11/18 INH 1830 Albuterol Sulfate 3 ML TID PRN 11/16 2045 AC 11/17 INH 1415 Amiodarone HCl 200 MG DAILY 11/16 1018 AC 11/18 PO 1018 Amoxicillin/ 500 MG Q12 11/18 1209 AC 11/18 Clavulanate Potassium PO 2139 Apixaban 2.5 MG BID 11/16 1018 AC 11/18 PO 2138 Aripiprazole 5 MG DAILY 11/16 1018 AC 11/18 PO 1018 Azithromycin 500 MG DAILY 11/17 1000 DC 11/18 Sodium Chloride 250 ML IV 1017 Bisacodyl 5 MG QAM 11/16 1018 AC 11/18 PO 1018 Bumetanide 0.5 MG DAILY 11/16 1019 AC 11/18 PO 1018 Ceftriaxone Sodium 1,000 MG DAILY 11/17 1000 DC 11/18 IV 1017 Duloxetine HCl 90 MG DAILY 11/16 1019 AC 11/18 PO 1017 Metoprolol Tartrate 12.5 MG BID 11/16 1019 AC 11/18 PO 2139 Omeprazole 40 MG DAILY AC 11/17 0700 AC 11/19 PO 0507 Patient Medication 1 ED .STK-MED ONE 11/18 1343 DC Teaching ED 11/18 1344 Polyethylene Glycol 17 GM DAILY 11/17 1000 AC 11/17 PO 0927 Ramelteon 8 MG AT BEDTIME PRN 11/17 1045 AC 11/17 PO 2208 Senna/Docusate Sodium 1 TAB BID 11/17 1000 AC 11/18 PO 2139 Valacyclovir HCl 500 MG AT BEDTIME 11/16 2200 AC 11/18 PO 2138 Last 24 Hrs of Lab/Maxim Results Last 24 Hrs of Labs/Mics: Sputum Cx (11/16/16): ESBL Assessment/Plan Assessment: 86 y/o F with PMHx of diastolic CHF, atrial fibrillation and right frozen shoulder who is admitted for community-acquired pneumonia. #CAP: S/p 3 days of azithromycin and ceftriaxone. Sputum cultures growing ESBL. Oxygenation improved, satting at 91-93% after ambulating on room air. * Continue augmentin 500 mg PO BID for a total of 7 days (11/18-11/24). #Suspected bronchiectasis: CXR with evidence of bronchiectasis. History of chronic productive cough suspicious for bronchiectasis. * Follow up with plaster machine operator Dr. Hyatt on discharge. #Mild protein-calorie malnutrition: * Nutrition following. Appreciate their recs. * Encourage PO intake. Diet: Heart Healthy DVT PPx: Eliquis and ALPs CODE: DNR/DNI Problem List: 1. Protein-calorie malnutrition, mild 2. Sputum culture positive for ESBL E. coli 3. CAP (community acquired pneumonia) 4. Bronchiectasis 5. Adhesive capsulitis of right shoulder Pain Ratin Pain Location: Right shoulder Pain Goal: Remain pain free Pain Plan: Vicodin 1 tab PO Q8 Tomorrow's Labs & Rationales: N/A Discharge Plan Discharge Disposition: home Stable for Discharge? Yes Anticipated Discharge (Day): today STEPHANY HENDRICKS,[facility] 11/19/16 1137: Attending MD Review Statement Attending Statement Attending MD Statement: examined this patient, discuss w/resident/PA/DRY CHAIN OPERATOR, agreed w/resident/PA/DRY CHAIN OPERATOR, reviewed EMR data (avail), discussed with nursing, discussed with case mgmt, amended to note Attending Assessment/Plan: Patient seen and examined, feeling overall slightly better. Still coughing. Currently not requiring any oxygen. Check her ambulatory O2 sat and she setting more than 91%. We have switched her to by mouth Augmentin and she'll be discharged on by mouth Augmentin for a few more days to complete a total of seven-day course. She was seen Dr. Hyatt in his office. She will also follow- up with her primary care doctor.
[2016-11-19 09:33] VITALS: BP 130/70
--- NOTE | 2016-11-19 11:24 | NUR ---
AMBULATING ROOM AIR-02 SATS 91-93%, NO SOB OR DISTRESS
--- NOTE | 2016-11-19 11:47 | Discharge Summary ---
Visit Information Visit Dates Admission Date: 11/16/16 Discharge Date: 11/19/16 Hospital Course Course Attending Physician: RAFIQ HAMMOND MD Primary Care Physician: MICHELLE HENDRICKS,MARINO Carty Consulting Request: Consulting Specialty: Pulmonary Disease Consulting Physician: Johan Hyatt MD Reason for Consult: bronchiectasis, hypoxemia Hospital Course: Ms. Castro is a 86 y/o F with PMHx of diastolic CHF, atrial fibrillation and right frozen shoulder who presented with subjective fevers and worsening cough productive of yellow sputum that had persisted despite receiving 5 days of ciprofloxacin for possible bronchitis as outpatient. Of note, patient endorsed persistent productive cough for the past six months since her teeth were pulled. On initial presentation, patient was afebrile with normal vital signs. CBC, BMP and urinalysis were unremarkable. Rapid flu was negative. CXR revealed a patchy right midzone consolidation as well as changes consistent with COPD and bronchiectasis. Patient was admitted for community-acquired pneumonia. Below are the issues that were addressed during current admission: #Community-acquired pneumonia: Patient received 3 days of IV azithromycin and ceftriaxone. Later sputum cultures grew ESBL that were resistant to ceftriaxone and patient was switched to oral Augmentin. Patient remained afebrile throughout hospitalization. Although patient was on room air on initial presentation, she desatted and required 2 L NC later on in the day. By day of discharge, her oxygenation had improved and her oxygen saturation was >91% on room air. * Patient was discharged on Augmentin 500 mg PO BID for a total of 7 days of antibiotics. #Bronchiectasis: Patient's persistent productive cough and CXR on admission was concerning for bronchiectasis. She was seen by artist model Dr. Hyatt, who recommended pulmonary function tests and repeat imaging as outpatient, as well as oxygen checks to determine future oxygen needs. * Patient was instructed to follow up with Dr. Hyatt as outpatient. #Mild protein calorie malnutrition: Patient met nutrition guidelines for mild protein calorie malnutrition. She was seen by nutrition and oral intake was encouraged. Allergies: Coded Allergies: Iodinated Contrast Media - Oral and (IODINATED CONTRAST MEDIA - IV DYE) (Severe, HEART STOPPED 03/22/16) morphine (Severe, COLLAPSE 11/05/15) Disposition Summary Disposition Principal Diagnosis: Community-acquired pneumonia Additional Diagnosis: Bronchiectasis Mild protein calorie malnutrition Discharge Disposition: home health services Discharge Instructions General Discharge Information Code Status: Full Code Patient's Diet: Heart Healthy Patient's Activity: As tolerated with assistance Follow-Up Instructions/Appts: Please see your primary care physician Dr. Nguyen within one week of discharge. Please see artist model Dr. Hyatt for your lungs within two weeks of discharge. Medications at Discharge Discharge Medications: Continue taking these medications: Amiodarone (Cordarone) 200 MG TABLET 1 Tablet ORAL DAILY Comments: GIVEN 09/04/15 AT 0900 Pantoprazole Sodium (Protonix) 40 MG TABLET. 1 Tablet ORAL DAILY Instructions: Reason to Stop at ADM: ON OMEPRAZOLE Comments: NOT GIVEN IN HOSPITAL Bumetanide (Bumetanide) 0.5 MG TABLET 1 Tablet ORAL DAILY Comments: Last Taken:11/19/16 Time:9:30 AM Metoprolol Tartrate (Lopressor) 25 MG TABLET 12.5 Milligram ORAL TWICE DAILY Days = 90 Comments: GIVEN 09/04/15 AT 0900 Aripiprazole (Abilify) 5 MG TABLET 5 Milligram ORAL DAILY Comments: GIVEN 09/04/15 AT 0900 Cholecalciferol (Vitamin D3) 1,000 UNIT TABLET 2 Tablet ORAL DAILY Days = 60 Comments: GIVEN 09/04/15 AT 0900 Valacyclovir Hydrochloride (Valtrex) 500 MG TABLET 1 Tablet ORAL AT BEDTIME Comments: Last Taken:11/18/16 Time:9:30 PM Naloxegol Oxalate (Movantik) 25 MG TABLET 1 Tablet ORAL DAILY Qty = 30 Comments: NOT GIVEN IN HOSPITAL Hydrocodone/Acetaminophen (Hydrocodon-Acetaminoph 7.5-300) 7.5 MG-300 MG TABLET 1 Tablet ORAL EVERY 8 HOURS NEEDED as needed for PAIN Comments: Last Taken:11/19/16 Time:4:30 AM Duloxetine Hydrochloride (Cymbalta) 30 MG CAPSULE. 90 Milligram ORAL DAILY Comments: Last Taken:11/19/16 Time:9:30 AM Bisacodyl (Dulcolax) 5 MG TABLET. 1 Tablet ORAL Every Morning Comments: Last Taken:11/19/16 Time:9:30 AM Apixaban (Eliquis) 2.5 MG TABLET 1 Tablet ORAL TWICE DAILY Comments: Last Taken:11/19/16 Time:9:30 AM Start taking the following new medications: Augmentin (Augmentin 500-125 Tablet) 500 MG-125 MG TABLET 1 Tablet ORAL TWICE DAILY Qty = 11 No Refills Comments: Last Taken:11/19/16 Time:9:30 AM Copies To: MICHELLE HENDRICKS,MARINO Carty; BJORN HENDRICKS,JOHAN
--- NOTE | 2016-11-19 14:51 | Cons- Pulmonary ---
General Information and HPI Consulting Request Date of Consult: 11/19/16 Requested By: Dr. Mooney Reason for Consult: bronchiectasis, hypoxemia Source of Information: patient Exam Limitations: no limitations History of Present Illness: 86 year old woman. Consultation for bronchiectasis and hypoxemia. History of diastolic heart failure, atrial fibrillation, anxiety, depression, severe osteoporosis, history of fall 4 years ago that led to frozen right shoulder who is admitted with community-acquired pneumonia. On Augmentin. CXR patchy right midzone consolidation. Bronchiectasis, pleural thickening, RML atelectasis, hyperinflation. Has had teeth pulled out in May and has had excessive salivation with globus formation and reported aspiration. It has improved, but throughout past few months this has been an issue. Currently no dyspnea at rest, only with exertion. No CP, no fevers, no chills, no nvdc. Allergies/Medications Allergies: Coded Allergies: Iodinated Contrast Media - Oral and (IODINATED CONTRAST MEDIA - IV DYE) (Severe, HEART STOPPED 03/22/16) morphine (Severe, COLLAPSE 11/05/15) Home Med List: Amiodarone (Cordarone) 200 MG TABLET 1 TAB PO DAILY afib (Reported) Apixaban (Eliquis) 2.5 MG TABLET 1 TAB PO BID BLOOD THINNER (Reported) Aripiprazole (Abilify) 5 MG TABLET 5 MG PO DAILY ANXIETY (Reported) Augmentin (Augmentin 500-125 Tablet) 500 MG-125 MG TABLET 1 TAB PO BID ANTIBIOTIC, INFECTION Bisacodyl (Dulcolax) 5 MG TABLET.DR 1 TAB PO QAM GI (Reported) Bumetanide 0.5 MG TABLET 1 TAB PO DAILY WATER PILL (Reported) Cholecalciferol (Vitamin D3) 1,000 UNIT TABLET 2 TAB PO DAILY BONE HEALTH Duloxetine Hydrochloride (Cymbalta) 30 MG CAPSULE.DR 90 MG PO DAILY MENTAL HEALTH (Reported) Hydrocodone/Acetaminophen (Hydrocodon-Acetaminoph 7.5-300) 7.5 MG-300 MG TABLET 1 TAB PO Q8P PRN PAIN (Reported) Metoprolol Tartrate (Lopressor) 25 MG TABLET 12.5 MG PO BID BLOOD PRESSURE Naloxegol Oxalate (Movantik) 25 MG TABLET 1 TAB PO DAILY CONSTIPATION ( Reported) Pantoprazole Sodium (Protonix) 40 MG TABLET.DR 1 TAB PO DAILY REFLUX ( Reported) Reason to Stop at ADM: ON OMEPRAZOLE Valacyclovir Hydrochloride (Valtrex) 500 MG TABLET 1 TAB PO AT BEDTIME SHINGLES PREVENTION (Reported) Current Medications: Current Medications Sig/Letty Start time Last Medication Dose Route Stop Time Status Admin Acetaminophen/ 1 TAB Q8 11/16 1400 DCD 11/19 Hydrocodone Bitart PO 0427 Albuterol Sulfate 3 ML TID 11/16 2200 DCD 11/19 INH 0909 Albuterol Sulfate 3 ML TID PRN 11/16 2045 DCD 11/17 INH 1415 Amiodarone HCl 200 MG DAILY 11/16 1018 DCD 11/19 PO 0933 Amoxicillin/ 500 MG Q12 11/18 1209 DCD 11/19 Clavulanate Potassium PO 0930 Apixaban 2.5 MG BID 11/16 1018 DCD 11/19 PO 0930 Aripiprazole 5 MG DAILY 11/16 1018 DCD 11/19 PO 0930 Bisacodyl 5 MG QAM 11/16 1018 DCD 11/19 PO 0933 Bumetanide 0.5 MG DAILY 11/16 1019 DCD 11/19 PO 0933 Duloxetine HCl 90 MG DAILY 11/16 1019 DCD 11/19 PO 0930 Metoprolol Tartrate 12.5 MG BID 11/16 1019 DCD 11/19 PO 0933 Omeprazole 40 MG DAILY AC 11/17 0700 DCD 11/19 PO 0507 Patient Medication 1 ED ONE 11/19 0000 NR Teaching ED 11/19 2359 Polyethylene Glycol 17 GM DAILY 11/17 1000 DCD 11/19 PO 0933 Ramelteon 8 MG AT BEDTIME PRN 11/17 1045 DCD 11/17 PO 2208 Senna/Docusate Sodium 1 TAB BID 11/17 1000 DCD 11/19 PO 0933 Valacyclovir HCl 500 MG AT BEDTIME 11/16 2200 DCD 11/18 PO 2138 Review of Systems Comments 18 point Review of Systems performed. Positive and negative pertinent findings are deliniated in the HPI. Otherwise the ROS is negative. Past History Travel History Traveled to [place] past 21 day No Medical History Neurological: NONE EENT: NONE Cardiovascular: AFIB, CHF, hypertension, ANGIOPLASTY Respiratory: pneumonia Gastrointestinal: GERD Hepatic: NONE Renal: NONE Musculoskeletal: CHRONIC RIGHT SHOULDER PAIN, DEFORMITY, HISTORY OF HUMERUS FRACTURE Psychiatric: chronic pain disorder, depression Blood Disorders: NONE Cancer(s): NONE Other Medical Hx: Shingles Surgical History Surgical History: ANGIOPLASTY R ARM SURGERY right shoulder surgery Family History Relations & Conditions If Any: MOTHER FH: CAD (coronary artery disease) FATHER FH: CAD (coronary artery disease) Psychosocial History 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 Needs Assist: toileting, bathing. Ambulation: walker IADLs Independent: telephone. Needs Assist: shopping, housework, finances, food prep, transportation, medication admin. Exam & Diagnostic Data Last 24 Hrs of Vital Signs/I&O Vital Signs Date Time Temp Pulse Resp B/P Pulse O2 O2 Flow FiO2 Ox Delivery Rate 11/19 0933 130/70 11/19 0933 130/70 11/19 0914 97 Room Air 11/19 0800 Room Air 11/19 0646 97.9 64 20 140/70 95 Room Air 11/19 0000 93 Room Air 11/18 2210 98.3 77 20 158/72 93 11/18 2139 98.3 83 20 158/72 11/18 1830 93 Room Air Intake & Output 11/19 1600 11/19 0800 11/19 0000 Intake Total 660 480 Output Total Balance 660 480 Intake, Oral 660 480 Physical Exam Other Physical Findings: General - Alert, awake and oriented HEENT - normocephalic, atraumatic Cardiovascular - S1, S2 Lungs - rare rhonchi Abdomen - soft, bowel sounds positive, no tenderness Extremities - without edema or cyanosis Last 48 Hrs of Labs/Maxim: . Assessment/Plan Impression/Plan: Impression 86 year old woman. Consultation for bronchiectasis and hypoxemia. History of diastolic heart failure, atrial fibrillation, anxiety, depression, severe osteoporosis, history of fall 4 years ago that led to frozen right shoulder who is admitted with community-acquired pneumonia. On Augmentin. CXR patchy right midzone consolidation. Bronchiectasis, pleural thickening, RML atelectasis, hyperinflation. Has had teeth pulled out in May and has had excessive salivation with globus formation and reported aspiration. It has improved, but throughout past few months this has been an issue. Currently no dyspnea at rest, only with exertion. No CP, no fevers, no chills, no nvdc. Plan -pfts as outpt, repeat imaging -o2 checks to determine future o2 needs -if saturating low with exertion will require o2 supplementation if below 88% -if sputum continues will plan on culturing -on jessica howard a.fib Consult Acknowledgment - Thank you for your consult request.
== END 2016-11-19 13:00 | disposition home health service (06) | DRG 191 ==
LOC: ENRESERVTM → ENRESERVDT → ERH 07:34 → 2NA 10:11 → ENPENDDIS 10:11 → ERHI 10:11 → EDPENDDISTM 10:11 → EDPENDDISDT 10:11 → 2NA 11:16
PROVIDERS: Emergency Medicine; ADMIT Hospitalist
DX: J47.0 Bronchiectasis with acute lower respiratory infection (principal); J18.9 Pneumonia, unspecified organism; I50.32 Chronic diastolic (congestive) heart failure; I11.0 Hypertensive heart disease with heart failure; I48.2 Chronic atrial fibrillation; E44.1 Mild protein-calorie malnutrition; Z68.1 Body mass index [BMI] 19.9 or less, adult; F41.9 Anxiety disorder, unspecified; F32.9 Major depressive disorder, single episode, unspecified; M81.0 Age-related osteoporosis without current pathological fracture; K21.9 Gastro-esophageal reflux disease without esophagitis; M75.01 Adhesive capsulitis of right shoulder; Z79.01 Long term (current) use of anticoagulants
CPT/HCPCS: 2NAP; 2NASP; 81003; 87040; 87070; 87071; 87086; 87449; 87450; 87804; 87804-59; 93005; 93010; 96365; 96366; 96375; J0456; J0696; J3490; J7040

== ENCOUNTER 2016-11-23 05:53 | Observation (INO) | payer OTHER, MEDICARE ==
[~2016-11-23] VITALS: Ht 177.8 cm; Wt 38.1 kg
[~2016-11-23 05:53] MED LIST changes: +AUGMENTIN 500-1 EACH PO
--- NOTE | 2016-11-23 06:16 | ED GI/GU/ABDOMINAL COMPLAINT ---
History of Present Illness General Chief Complaint: General Adult Stated Complaint: PT C/O DIARRHEA X'S 4 DAYS ALSO HX PNEUMONIA Source: patient, family, old records Exam Limitations: no limitations Vital Signs & Intake/Output Vital Signs & Intake/Output Vital Signs Date Time Temp Pulse Resp B/P Pulse O2 O2 Flow FiO2 Ox Delivery Rate 11/23 0907 73 18 160/73 95 Room Air 11/23 0645 98 Room Air 11/23 0621 97.4 72 18 160/78 93 Room Air Allergies Coded Allergies: Iodinated Contrast Media - Oral and (IODINATED CONTRAST MEDIA - IV DYE) (Severe, HEART STOPPED 11/23/16) morphine (Severe, COLLAPSE 11/23/16) Triage Nurses Notes Reviewed? yes ? N Is pt currently ? No HPI: Patient was discharged from the hospital on Tuesday morning after admission for pneumonia. Within a few hours of being at home he began having profuse watery diarrhea. Patient has moved her bowels multiple times over the past 4 days. There is no abdominal pain or abdominal cramping. No nausea or vomiting. There are no fevers but there are positive chills. Patient has notnoted blood in her stool. (BELKIS HENDRICKS,ANABELLE Carty) Reconcile Medications Amiodarone HCl 200 MG TABLET 1 TAB PO DAILY AFIB (Reported) Apixaban (Eliquis) 2.5 MG TABLET 1 TAB PO BID BLOOD THINNER (Reported) Aripiprazole (Abilify) 5 MG TABLET 1 TAB PO DAILY ANXIETY (Reported) Augmentin (Augmentin 500-125 Tablet) 500 MG-125 MG TABLET 1 TAB PO BID ANTIBIOTIC, INFECTION Bumetanide 0.5 MG TABLET 1 TAB PO DAILY WATER PILL (Reported) Docusate Sodium (Colace) 100 MG CAPSULE 1 CAP PO DAILY STOOL SOFTENER ( Reported) Duloxetine Hydrochloride (Cymbalta) 30 MG CAPSULE.DR 90 MG PO DAILY MENTAL HEALTH (Reported) Hydrocodone/Acetaminophen (Hydrocodon-Acetaminoph 7.5-300) 7.5 MG-300 MG TABLET 1 TAB PO Q8P PRN PAIN (Reported) Metoprolol Tartrate 25 MG TABLET 0.5 TAB PO BID HEART (Reported) Naloxegol Oxalate (Movantik) 25 MG TABLET 1 TAB PO DAILY CONSTIPATION ( Reported) Pantoprazole Sodium (Protonix) 40 MG TABLET.DR 1 TAB PO DAILY ACID REFLUX ( Reported) Valacyclovir Hydrochloride (Valtrex) 500 MG TABLET 1 TAB PO AT BEDTIME SHINGLES PREVENTION (Reported) (FELIX SHAH DO) Past History Medical History Any Pertinent Medical History? see below for history Neurological: NONE EENT: NONE Cardiovascular: AFIB, CHF, hypertension, ANGIOPLASTY Respiratory: pneumonia Gastrointestinal: GERD Hepatic: NONE Renal: NONE Musculoskeletal: CHRONIC RIGHT SHOULDER PAIN, DEFORMITY, HISTORY OF HUMERUS FRACTURE Psychiatric: chronic pain disorder, depression Blood Disorders: NONE Cancer(s): NONE Other Medical Hx: Shingles History of MRSA: No History of VRE: No History of CDIFF: No Surgical History Surgical History: ANGIOPLASTY R ARM SURGERY right shoulder surgery Psychosocial History Who do you live with Patient/Self Services at Home [employer] What is your primary language Kiswahili Tobacco Use: Never used ETOH Use: denies use Illicit Drug Use: denies illicit drug use Family History Family History, If Any: MOTHER FH: CAD (coronary artery disease) FATHER FH: CAD (coronary artery disease) Hx Contributory? No (BELKIS HENDRICKS,ANABELLE Carty) Review of Systems Review of Systems Constitutional: Reports: see HPI, chills. EENTM: Reports: no symptoms. Respiratory: Reports: no symptoms. Cardiovascular: Reports: no symptoms. GI: Reports: see HPI, diarrhea. Genitourinary: Reports: no symptoms. Musculoskeletal: Reports: no symptoms. Skin: Reports: no symptoms. Neurological/Psychological: Reports: no symptoms. Hematologic/Endocrine: Reports: no symptoms. Immunologic/Allergic: Reports: no symptoms. All Other Systems: Reviewed and Negative (BELKIS HENDRICKS,ANABELLE Carty) Physical Exam Physical Exam General Appearance: well developed/nourished, alert, awake, moderate distress Head: atraumatic, normal appearance Eyes: Bilateral: PERRL, EOMI. Ears, Nose, Throat, Mouth: hearing grossly normal, DRY MUCOUS MEMBRANES Neck: normal inspection, supple, full range of motion Respiratory: normal breath sounds, chest non-tender, no respiratory distress, lungs clear Cardiovascular: normal peripheral pulses, irregularly irregular Gastrointestinal: normal bowel sounds, soft, non-tender, no organomegaly Extremities: normal range of motion Neurologic/Psych: no motor/sensory deficits, awake, alert, oriented x 3, normal mood/affect Skin: intact, normal color, warm/dry Core Measures ACS in differential dx? No Severe Sepsis Present: No Septic Shock Present: No (ANABELLE TAMAYO MD) Progress Differential Diagnosis: c. DIFFICILE, ANTIBIOTIC INDUCED DIARRHEA, uti, DEHYDRATION Plan of Care: Orders Procedure Date/time Status Heart Healthy Diet 11/[address] in observation 11/23 1034 Active ED Holding Orders 11/23 1034 Active Patient Data 11/23 1034 Active Vital Signs 11/23 1034 Active Code Status 11/23 1034 Active C.DIFFICILE 11/23 0614 Active TROPONIN LEVEL 11/23 0614 Complete COMPREHENSIVE METABOLIC PANEL 11/23 613 Complete CBC WITHOUT DIFFERENTIAL 11/23 613 Complete EKG 11/23 613 Active Laboratory Tests 11/23/16 0645: Anion Gap 10, Estimated GFR > 60, BUN/Creatinine Ratio 18.6, Glucose 91, Calcium 9.2, Total Bilirubin 1.0, AST 43 H, ALT 37, Alkaline Phosphatase 105, Troponin I < 0.01, Total Protein 7.3, Albumin 4.0, Globulin 3.3, Albumin/Globulin Ratio 1.2, CBC w Diff NO MAN DIFF REQ, RBC 3.98 L, MCV 97.6, MCH 33.8 H, RDW 14.6 H , MPV 7.4, Gran % 79.4 H, Lymphocytes % 11.6 L, Monocytes % 7.6, Eosinophils % 1.1, Basophils % 0.3, Absolute Granulocytes 7.5 H, Absolute Lymphocytes 1.1 L, Absolute Monocytes 0.7 H, Absolute Eosinophils 0.1, Absolute Basophils 0, PUBS MCHC 34.6 Microbiology 11/23 0743 STOOL: Clostridium difficile Toxin A & B - RECD Initial ED EKG: AFIB, nonspecific ST T wave chg Prior EKG: unchanged Rhythm Strip: atrial fibrillation Hand-Off Endorsed To: FELIX SHAH DO Endorsed Time: 0700 Pending: labs (ANABELLE TAMAYO MD) Departure Departure Disposition: STILL A PATIENT Condition: Stable Clinical Impression Primary Impression: Diarrhea Referrals: MICHELLE HENDRICKS,MARINO Carty (PCP/Family) Departure Forms: Customer Survey General Discharge Information (ANABELLE TAMAYO MD) Departure Comments 11/22/16 The patient was signed out to me by Dr. Tamayo. Observation Note Spoke With: LISA MENJIVAR MD Physician Advisor Notified: FELIX SHAH DO Place Patient In: Non-ED OBS Care Area Rationale for Observation: My rational for observation is as follows [the patient is having severe profuse watery diarrhea consistent with C. difficile. She needs to be placed in observation for gentle hydration, follow the C. difficile stool samples, consider evaluation for short-term rehabilitation versus long-term care as she is having trouble being managed at home]. (FELIX SHAH DO)
--- NOTE | 2016-11-23 06:23 | NUR ---
TRIAGE: PATIENT TO ER FROM HOME W/ DAUGHTER, D/LUCA FROM HERE TUESDAY FOR DX PNA, RETURNS TODAY W/ DIARRHEA X 4 DAYS. DENIES ANY N/V/D, DENIES ANY ABD PAIN. REPORTS HAS BEEN TAKING ABX D/T PNA.
--- NOTE | 2016-11-23 06:23 | NUR ---
PATIENT AND DAUGHTER AWARE OF NEED FOR STOOL SAMPLE, REPORTS UNABLE TO GO AT THIS TIME THOUGH WILL ALERT RN WHEN FEELS URGE TO VOID. EVALUATED BY MD TAMAYO.
--- NOTE | 2016-11-23 06:35 | NUR ---
IV INSERTED. LABS DRAWN -- SST,LAV,BLUE,RAMIREZ ALL SENT. NS UP WO PT AWARE OF NEED OF STOOL SPECIMEN .
[2016-11-23 07:02] LABS: ABSOLUTE BASOPHIL COUNT 0 /CUMM (0.0-0.2); ABSOLUTE EOSINOPHIL COUNT 0.1 /CUMM (0.0-0.7); ABSOLUTE GRANULOCYTE CT 7.5 /CUMM (1.4-6.5); ABSOLUTE LYMPH COUNT 1.1 /CUMM (1.2-3.4); ABSOLUTE MONOCYTE COUNT 0.7 /CUMM (0.10-0.60); BASOPHIL % 0.3 % (0.0-2.0); EOSINOPHIL % 1.1 % (0-5); GRANULOCYTE % 79.4 % (42.2-75.2); HEMATOCRIT 38.8 % (37-47); MEAN CORPUSCULAR HGB 33.8 PG (27.0-31.0); MEAN CORPUSCULAR HGB CONC 34.6 G/DL (33.0-37.0); MEAN CORPUSCULAR VOLUME 97.6 FL (81.0-99.0); MEAN PLATELET VOLUME 7.4 FL (7.4-10.4); PLATELET COUNT 291 /CUMM (130-400); RBC DISTRIBUTION WIDTH 14.6 % (11.5-14.5); RED BLOOD CELL CT 3.98 /CUMM (4.20-5.40); WHITE BLOOD CELL COUNT 9.4 /CUMM (4.8-10.8)
--- NOTE | 2016-11-23 07:30 | NUR ---
ASSUMED CARE OF PT WHO IS A&OX3, APPEARS IN NAD. FAMILY OF PT AT BEDSIDE. PT AWARE WAITING FOR REST OF LAB RESULTS. STOOL SPECIMEN REQUESTED
--- NOTE | 2016-11-23 07:45 | NUR ---
STOOL SAMPLE SENT TO THE LAB.
[2016-11-23] MEDS ORDERED: METOPROLOL TART25 M1 PO (08:12)
[2016-11-23] MEDS ORDERED: COLACE100 M1 PO (08:13)
--- NOTE | 2016-11-23 08:31 | NUR ---
PT ASSISTED ONTO BEDSIDE COMMODE, SMALL AMOUNT OF BROWN DIARRHEA INTO COMMODE. TOMMY CARE PROVIDED.
--- NOTE | 2016-11-23 09:00 | NUR ---
PT C/O FEELING SOB X 1/2 HOUR. 02 SAT 95% ON RA. DR SHAH MADE AWARE. PT DENIES CP
--- NOTE | 2016-11-23 09:05 | NUR ---
DR SHAH AT BEDSIDE FOR REEVALUATION
--- NOTE | 2016-11-23 11:08 | NUR ---
STATES SOB HAS RESOLVED
--- NOTE | 2016-11-23 11:22 | NUR ---
ASSUMED CARE OF PT, HOUSE STAFF AT BEDSIDE AT THIS TIME.
--- NOTE | 2016-11-23 12:03 | NUR ---
MEDICATED WITH DAILY MEDS, MIVF INFUSING, REPORT GIVEN TO DEBI ON 2N AND EXPLOSIVE MAN NOTIFIED TO BOOK TRANSPORT. PT AWARE OF PENDING TRANSFER.
--- NOTE | 2016-11-23 12:25 | History & Physical ---
ASPNE HENDRICKS,SEBASTIAN 11/23/16 1206: General Information and HPI MD Statement: I have seen and personally examined SANDHYA COLLINS and documented this H&P. The patient is a 86 year old F who presented with a patient stated chief complaint of [multiple episodes of watery diarrhea]. Source of Information: patient Exam Limitations: no limitations History of Present Illness: This is 86 year old female with past medical history of diastolic heart failure, atrial fibrillation on Eliquis, anxiety, depression, severe osteoporosis and right frozen shoulder who was recently admitted to [facility] from 11/16 to 11/19/2016 and was treated for community-acquired pneumonia and was discharged on Augmentin returned from home with chief complaint of 4 days history of persistent watery diarrhea and generalized weakness. After discharge from [facility] the same day at night patient started having watery diarrhea. She reports whatever she eats all passes through. She is not able to tell exact number was reports at least 5-6 watery nonbloody bowel movement for past 4 days. Since last night she had total of 6 watery BM which made her come to ER for further evaluation. She denies any chest pain, shortness of breath, fever, chills, sick contacts, unusual food intake, change in medication, abdominal pain , nausea, vomiting or urinary symptoms. Allergies/Medications Allergies: Coded Allergies: Iodinated Contrast Media - Oral and (IODINATED CONTRAST MEDIA - IV DYE) (Severe, HEART STOPPED 11/23/16) morphine (Severe, COLLAPSE 11/23/16) Home Med list Amiodarone HCl 200 MG TABLET 1 TAB PO DAILY AFIB (Reported) Apixaban (Eliquis) 2.5 MG TABLET 1 TAB PO BID BLOOD THINNER (Reported) Aripiprazole (Abilify) 5 MG TABLET 1 TAB PO DAILY ANXIETY (Reported) Augmentin (Augmentin 500-125 Tablet) 500 MG-125 MG TABLET 1 TAB PO BID ANTIBIOTIC, INFECTION Bumetanide 0.5 MG TABLET 1 TAB PO DAILY WATER PILL (Reported) Docusate Sodium (Colace) 100 MG CAPSULE 1 CAP PO DAILY STOOL SOFTENER ( Reported) Duloxetine Hydrochloride (Cymbalta) 30 MG CAPSULE.DR 90 MG PO DAILY MENTAL HEALTH (Reported) Hydrocodone/Acetaminophen (Hydrocodon-Acetaminoph 7.5-300) 7.5 MG-300 MG TABLET 1 TAB PO Q8P PRN PAIN (Reported) Metoprolol Tartrate 25 MG TABLET 0.5 TAB PO BID HEART (Reported) Naloxegol Oxalate (Movantik) 25 MG TABLET 1 TAB PO DAILY CONSTIPATION ( Reported) Pantoprazole Sodium (Protonix) 40 MG TABLET.DR 1 TAB PO DAILY ACID REFLUX ( Reported) Valacyclovir Hydrochloride (Valtrex) 500 MG TABLET 1 TAB PO AT BEDTIME SHINGLES PREVENTION (Reported) Compliance With Home Meds: FAIR Past History Travel History Traveled to [place] past 21 day No Medical History Neurological: NONE EENT: NONE Cardiovascular: AFIB, CHF, hypertension, ANGIOPLASTY Respiratory: pneumonia Gastrointestinal: GERD Hepatic: NONE Renal: NONE Musculoskeletal: CHRONIC RIGHT SHOULDER PAIN, DEFORMITY, HISTORY OF HUMERUS FRACTURE Psychiatric: chronic pain disorder, depression Blood Disorders: NONE Cancer(s): NONE Other Medical Hx: Shingles History of MRSA: No History of VRE: No History of CDIFF: No Surgical History Surgical History: ANGIOPLASTY R ARM SURGERY right shoulder surgery Past Family/Social History Family History Relations & Conditions if any MOTHER FH: CAD (coronary artery disease) FATHER FH: CAD (coronary artery disease) Psychosocial History 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 Needs Assist: toileting, bathing. Ambulation: walker IADLs Independent: telephone. Needs Assist: shopping, housework, finances, food prep, transportation, medication admin. Review of Systems Review of Systems Constitutional: Reports: weakness. Denies: chills, fever. EENTM: Denies: visual changes. Cardiovascular: Denies: chest pain, edema, orthopena, palpitations, peripheral edema. Respiratory: Denies: cough, short of breath, sputum production, wheezing. GI: Reports: diarrhea. Denies: abdominal pain, nausea, vomiting. Genitourinary: Denies: dysuria, frequency. Musculoskeletal: Denies: back pain. Skin: Denies: rash. Neurological/Psychological: Denies: confusion. Hematologic/Endocrine: Denies: bleeding. Exam & Diagnostic Data Last 24 Hrs of Vital Signs/I&O Vital Signs Date Time Temp Pulse Resp B/P Pulse O2 O2 Flow FiO2 Ox Delivery Rate 11/23 1203 97.4 77 20 167/76 11/23 1203 97.4 77 20 167/76 11/23 1122 97.4 77 20 167/76 94 Room Air 11/23 0907 73 18 160/73 95 Room Air 11/23 0645 98 Room Air 11/23 0621 97.4 72 18 160/78 93 Room Air Intake & Output 11/23 1600 11/23 0800 11/23 0000 Intake Total Output Total Balance Patient 84 lb 0.01 oz Weight Physical Exam General Appearance Alert, Oriented X3, Cooperative (the), No Acute Distress Skin No Rashes HEENT Atraumatic, PERRLA, EOMI, Mucous Membr. moist/pink Neck Supple, No JVD Cardiovascular Regular Rate, Normal S1, Normal S2, No Murmurs Lungs Normal Air Movement, bibasilar rhonchi Abdomen Normal Bowel Sounds, Soft, No Tenderness Neurological Normal Speech, Normal Tone, Sensation Intact, Cranial Nerves 3-12 NL Extremities No Edema, Normal Pulses Vascular Normal Pulses, Pulses Symmetrical Last 24 Hrs of Labs/Maxim: Laboratory Tests 11/23/16 0645: Anion Gap 10, Estimated GFR > 60, BUN/Creatinine Ratio 18.6, Glucose 91, Calcium 9.2, Total Bilirubin 1.0, AST 43 H, ALT 37, Alkaline Phosphatase 105, Troponin I < 0.01, Total Protein 7.3, Albumin 4.0, Globulin 3.3, Albumin/Globulin Ratio 1.2, CBC w Diff NO MAN DIFF REQ, RBC 3.98 L, MCV 97.6, MCH 33.8 H, RDW 14.6 H , MPV 7.4, Gran % 79.4 H, Lymphocytes % 11.6 L, Monocytes % 7.6, Eosinophils % 1.1, Basophils % 0.3, Absolute Granulocytes 7.5 H, Absolute Lymphocytes 1.1 L, Absolute Monocytes 0.7 H, Absolute Eosinophils 0.1, Absolute Basophils 0, PUBS MCHC 34.6 Microbiology 11/23 1138 STOOL: Stool Culture - CAN Cancelled: Cancelled via OE: ADD ON 11/23 0743 STOOL: Clostridium difficile Toxin A & B - RECD 11/23 06 GI: Stool Culture - RECD Diagnostic Data EKG Results Normal sinus rhythm, left axis deviation, noted new anterior T-wave flattening/ in worsened, poor R-wave progression, QTC 462 Assessment/Plan Assessment: This is 86 year old female with past medical history of diastolic heart failure, atrial fibrillation on Eliquis, anxiety, depression, severe osteoporosis and right frozen shoulder who was recently admitted to [facility] from 11/16 to 11/19/2016 and was treated for community-acquired pneumonia and was discharged on Augmentin returned from home with chief complaint of 4 days history of persistent watery diarrhea and generalized weakness. Patient has no fever, chills or elevated white count or renal failure but had distinct history of recent antibiotic use and abrupt onset of diarrhea. It is most likely related withy antibiotic associate d diarrhea but Cdiff needs to be ruled out. 1. Diarrhea - antibiotic associated diarrhea vs. Cdiff - Admit to general medicine floor - Gentle IV hydration - hold off abx, if patient spikes fever or cdiff comes positive will start abx - Follow-up C. difficile result - Stop Augmentin - No need for any imaging study now 2. History of A. fib - Continue Eliquis for anticoagulation - Continue amiodarone 200 mg daily - Continue metoprolol for rate control 3. History of diastolic heart failure - Continue Bumex 0.5 mg starting from tomorrow morning 4.. History of anxiety/depression Continue Abilify 5 mg daily and duloxetine 5. DVT prophylaxis On Eliquis 6. DNR/DNI As Ranked By This Provider Problem List: 1. Diarrhea 2. ATRIAL FIBRILATION 3. Anxiety Core Measures/Miscellaneous Acute Coronary Syndrome ACS Diagnosis: No Cerebrovascular Accident CVA/TIA Diagnosis: No Congestive Heart Failure CHF Diagnosis: No Venous Thromboembolism VTE Risk Factors: Acute medical illness (is), Age > 40 No [facility] VTE prophylaxis d/t: No contraindications No VTE Pharm Prophylaxis d/t: No contraindications VTE Diagnosis: No VTE Type: NONE VTE Confirmed by (Test): NONE Comment: bbe that we don't have any adm Severe Sepsis Severe Sepsis Present: No Septic Shock Septic Shock Present: No Miscellaneous Documentation Attending Case Discussed With: ILAN HENDRICKS,KELSEA Mead Primary Care Physician: So much MICHELLE HENDRICKS,MARINO Carty Patient sees these Specialists none Level of Patient Care: General Medicine ILAN HENDRICKS,KELSEA 11/23/16 1344: Attending MD Review Statement Attending Statement Attending MD Statement: examined this patient, discuss w/resident/PA/FEATHER STITCHER, agreed w/resident/PA/FEATHER STITCHER, reviewed EMR data (avail), discussed with nursing, discussed with case mgmt, reviewed images Attending Assessment/Plan: 86 year old female with PMH COPD, bronchiectaisis, chronic diastolic heart failkure and recent admission for pneumonia and discharged on PO Augmentin here with profuse watery diarrhea and mild dehydration. No leukocytosiis, bandemia, documented fevers or ZION. Will check stool C Diff but hold off on emperic treatment for Cdiff for now, will reevaluate closely if clinical situation changes. Gentle hydration today and if ok, restart Bumex in am. Cont Eliquis, watch resp status closely. DVT prophylaxis with Eliquis and f/u
[2016-11-23 13:00] VITALS: BP 178/90
--- NOTE | 2016-11-23 13:00 | NUR ---
NURSING NOTE: PATIENT ARRIVED TO ROOM VIA STRETCHER AND SETTLED INTO BED. A&OX3, NO ACUTE DISTRESS; VS BP 178/90, P 73, T 97.1, R 18, O2 93% RA. 165 NOTIFIED. ORIENTED TO ROOM AND CALL [facility], BED ALARM IN PLACE, IVF RUNNING. CONT TO MONITOR.
--- NOTE | 2016-11-23 13:36 | Admission Certification ---
Admission Certification Certification Statement - As attending physician, I certify that at the time of - admission, based on clinical presentation, severity of - symptoms, need for further diagnostic testing and - therapeutic interventions, and risk of adverse outcomes - without in-hospital treatment, in my clinical assessment, - this patient requires an acute hospital stay for a minimum - of two nights or longer. I have also considered psychsocial - factors such as support system, advanced age, financial - issues, cognitive issues, and failed out-patient treatments, - past re-admission history, safety of patient, and lack of - compliance as applicable. Specific rationale supporting this admission is: Severe diarrhea in pt on antibiotics
[2016-11-23 15:00] VITALS: BP 190/90
--- NOTE | 2016-11-23 15:00 | NUR ---
NURSING NOTE: PATIENTS BP 190/90 AT THIS TIME. NORVACS GIVEN; 165 MADE AWARE. REPORT TO RECHECK BP GIVEN TO NEXT SHIFT. CONT TO MONITOR.
[2016-11-23 16:05] VITALS: BP 152/70
--- NOTE | 2016-11-23 16:51 | Event Note ---
Event Note Event Note: Earlier the blood pressure was notted to be high at 190/90 at 3pm. Patient had already got 12.5 of metoprolol and 5 mg of amlodipine. Blood pressure was rechecked at 3.45, it improved to 152/70. Please continue to monitor. Patient might need 5 mg amlodipine daily as her blood pressure seems inadequately controlled.
--- NOTE | 2016-11-23 17:12 | RADIOLOGY REPORT ---
EXAMINATION: XR PORTABLE CHEST CLINICAL INFORMATION: 86-year-old female patient with difficulty breathing. Crackles on lung exam. COMPARISON: Chest x-ray on August 2015, CT the chest on September 2015, and chest x-ray on 08/11/2016. TECHNIQUE: Portable AP portable semierect view of the chest was obtained. FINDINGS: Reexamination again shows considerable chronic alterations of both lungs including right apical fibrosis with pleural thickening, spiculated nodule in the left upper lobe, linear scarring in the left lower lobe, chronic reticular opacities in both lower lobes, and an unusual collection of calcifications in the right middle lobe resembling broncholiths. No acute airspace disease is appreciated. The patient is rotated to the right posterior oblique projection. There is no change in position and orientation of the right shoulder prosthesis. IMPRESSION: No acute pulmonary parenchymal disease. A multitude of chronic findings as described.
[2016-11-23 22:32] VITALS: BP 134/84
--- NOTE | 2016-11-24 06:47 | NUR ---
B/P AT [phone]. MD HERNANDEZ MADE AWARE. WOULD LIKE TO RECHECK IN ONE HOSUE. WILL CONTINUE TO MONNITOR.
[2016-11-24 07:51] VITALS: BP 148/84
[2016-11-24 07:56] LABS: ABSOLUTE BASOPHIL COUNT 0 /CUMM (0.0-0.2); ABSOLUTE EOSINOPHIL COUNT 0.1 /CUMM (0.0-0.7); ABSOLUTE GRANULOCYTE CT 5.8 /CUMM (1.4-6.5); ABSOLUTE LYMPH COUNT 1.2 /CUMM (1.2-3.4); ABSOLUTE MONOCYTE COUNT 0.6 /CUMM (0.10-0.60); BASOPHIL % 0.3 % (0.0-2.0); MEAN PLATELET VOLUME 7.6 FL (7.4-10.4); RBC DISTRIBUTION WIDTH 14.8 % (11.5-14.5); WHITE BLOOD CELL COUNT 7.7 /CUMM (4.8-10.8)
--- NOTE | 2016-11-24 09:02 | PN- Housestaff ---
FLOYD HENDRICKS,LEIGHTON 11/24/16 0902: Subjective Follow-up For: Diarrhea Weakness Subjective: Patient appears comfortable in bed this morning. Patient's son was present at bedside when saw the patient. She denies any complaints. Overnight had one small bowel movement. This morning had 2 semisolid bowel movements. Was walked by the nurse and was able to walk only a few steps which is worse than her baseline. She lives at home with 24-hour care. Review of Systems Constitutional: Reports: see HPI. Objective Last 24 Hrs of Vital Signs/I&O Vital Signs Date Time Temp Pulse Resp B/P Pulse O2 O2 Flow FiO2 Ox Delivery Rate 11/24 0800 95 Room Air 11/24 0751 98.3 73 20 148/84 94 Room Air 11/24 0000 Room Air 11/23 2232 98.4 69 20 134/84 93 Room Air 11/23 2120 66 130/70 11/23 1605 152/70 11/23 1501 79 190/90 11/23 1500 79 190/90 11/23 1300 97.1 73 18 178/90 93 Room Air 11/23 1254 98.4 76 18 149/76 95 Room Air Intake & Output 11/24 1600 11/24 0800 11/24 0000 Intake Total 240 700 Output Total 1100 300 Balance -860 400 Intake, Oral 240 700 Number 1 1 Bowel Movements Output, Urine 1100 300 Physical Exam General Appearance: Alert, Oriented X3, Cooperative, No Acute Distress Skin: No Rashes Cardiovascular: Regular Rate, Normal S1, Normal S2 Lungs: Clear to Auscultation Abdomen: Normal Bowel Sounds, Soft, No Tenderness Current Medications: Current Medications Sig/Letty Start time Last Medication Dose Route Stop Time Status Admin Amiodarone HCl 200 MG DAILY 11/23 1134 AC 11/24 PO 0924 Amlodipine Besylate 5 MG ONCE ONE 11/23 1345 DC 11/23 PO 11/23 1346 1501 Apixaban 2.5 MG BID 11/23 1134 AC 11/24 PO 0925 Aripiprazole 5 MG DAILY 11/23 1134 AC 11/24 PO 0923 Benzonatate 100 MG TID 11/24 1115 AC PO Bumetanide 0.5 MG DAILY 11/24 1000 AC 11/24 PO 0923 Calcium Carbonate 500 MG DAILY 11/23 1345 CAN PO Duloxetine HCl 90 MG DAILY 11/23 1135 AC 11/24 PO 0924 Metoprolol Tartrate 12.5 MG BID 11/23 2200 AC 11/24 PO 0925 Metronidazole 500 MG Q8 11/23 1400 CAN PO Oxycodone/ 1 TAB Q8P PRN 11/23 1145 AC 11/24 Acetaminophen PO 0009 Sodium Chloride 500 ML .Q6H40M 11/23 1130 DC 11/23 IV 11/23 1809 1156 Valacyclovir HCl 500 MG AT BEDTIME 11/23 2199 AC 11/23 PO 2120 Last 24 Hrs of Lab/Maxim Results Last 24 Hrs of Labs/Mics: Laboratory Tests 11/24/16 0615: Anion Gap 7, Estimated GFR > 60, BUN/Creatinine Ratio 14.3, CBC w Diff NO MAN DIFF REQ, RBC 4.35, MCV 95.2, MCH 31.9 H, RDW 14.8 H, MPV 7.6, Gran % 75.0, Lymphocytes % 16.1 L, Monocytes % 7.6, Eosinophils % 1.0, Basophils % 0.3, Absolute Granulocytes 5.8, Absolute Lymphocytes 1.2, Absolute Monocytes 0.6, Absolute Eosinophils 0.1, Absolute Basophils 0, PUBS MCHC 33.5 11/23/16 1635: Troponin I < 0.01 Assessment/Plan Assessment: This is 86 year old female with past medical history of diastolic heart failure, atrial fibrillation on Eliquis, anxiety, depression, severe osteoporosis and right frozen shoulder who was recently admitted to [facility] from 11/16 to 11/19/2016 and was treated for community-acquired pneumonia and was discharged on Augmentin returned from home with chief complaint of 4 days history of persistent watery diarrhea and generalized weakness. C. difficile has been negative. 1. Diarrhea could be secondary to amoxicillin which is resolving - C. difficile negative - Able to tolerate by mouth intake. - We will continue to monitor and increase by mouth feeds - No diarrhea during the day she can be discharged home with home PT 2. Weakness could be secondary to diarrhea and poor by mouth intake - Seen by PT today who recommended home PT. 3. History of A. fib - Continue Eliquis for anticoagulation - Continue amiodarone 200 mg daily - Continue metoprolol for rate control 4. History of diastolic heart failure - Continue Bumex 0.5 mg starting from tomorrow morning -Blood pressure was elevated yesterday and she received 1 dose of amlodipine. - This morning vitals are stable. We'll resume her Bumex today and continue her other medications. 5.. History of anxiety/depression Continue Abilify 5 mg daily and duloxetine 6. DVT prophylaxis On Eliquis 7. DNR/DNI Problem List: 1. Diarrhea 2. ATRIAL FIBRILATION Pain Ratin Pain Location: none Pain Goal: Remain pain free Pain Plan: percocet Tomorrow's Labs & Rationales: Not needed KELSEA TALAVERA MD 11/24/16 1042: Attending MD Review Statement Attending Statement Attending MD Statement: examined this patient, discuss w/resident/PA/SAWMILL SUPERVISOR, agreed w/resident/PA/SAWMILL SUPERVISOR, reviewed EMR data (avail), discussed with nursing, discussed with case mgmt, reviewed images Attending Assessment/Plan: Overall patient feels okay but still feels weak. She hasn't had any more diarrhea overnight. She says her ambulation status is not at her baseline. I explained to her that the C. difficile is negative so this is likely all antibiotic associated diarrhea. Also explained that the lack of fever and white count is reassuring. Will encourage by mouth hydration. We'll walk her around and follow closely.
[2016-11-24 09:08] LABS: HEMATOCRIT 41.4 % (37-47); MEAN CORPUSCULAR HGB 31.9 PG (27.0-31.0); MEAN CORPUSCULAR HGB CONC 33.5 G/DL (33.0-37.0); MEAN CORPUSCULAR VOLUME 95.2 FL (81.0-99.0)
[2016-11-24 09:09] LABS: PLATELET COUNT 287 /CUMM (130-400); RED BLOOD CELL CT 4.35 /CUMM (4.20-5.40)
--- NOTE | 2016-11-24 09:36 | NUR ---
NURSING NOTE: PT SAT IN CHAIR THIS AM; PT AMBULATED FROM CHAIR TO THE BEDSIDE COMMODE WHICH WAS RIGHT NEXT TO THE BATHROOM DOOR. PT USED WALKER WHICH SHE STATES SHE USES AT BASELINE. PT ASKED TO GO TO BED FROM [facility]. PT STATES "IM VERY WEAK, I USUALLY CAN WALK MUCH FURTHER AT HOME," BED ALARM IN PLACE, NEEDS IN REAC, SON AT BEDSIDE, 372 AWARE
--- NOTE | 2016-11-24 09:42 | PN- Att Addend ---
Attending Addendum Attending Brief Note Of note patient was brought in as an observation. I made an error as I did not get that communication. I thought that we were admitting the patient as I thought she will likely need 48 hours of treatment with fluids and treatment for C. difficile. Now looking at ED documentation and the lack of fever and white count it's apparent that she should be in observation status. We have ruled out C. difficile with a negative specimen. If her diarrhea improves, she ambulates, her pressure is okay and she has adequate by mouth intake she will stay in observation and I will discharge her. Please disregard the admission certification. I spoke to case management Norma Christian who is aware of the above.
--- NOTE | 2016-11-24 12:34 | Patient Discharge Instructions ---
Discharge Instructions General Discharge Information You were seen/treated for: Diarrhea /weakness You had these procedures: None Special Instructions: 1. Follow up with PCP in a week upon discharge 2. COntinue home PT Diet Recommended Diet: Heart Healthy Activity Activity Self Limited: Yes Acute Coronary Syndrome Inclusion Criteria At DC or during hospital stay patient has or had the following: ACS DIAGNOSIS No Discharge Core Measures Meds if any: Prescribed or Continued at Discharge Meds if any: NOT Prescribed or Continued at Discharge Congestive Heart Failure Inclusion Criteria At DC or during hospital stay patient has or had the following: CHF DIAGNOSIS No Discharge Core Measures Meds if any: Prescribed or Continued at Discharge Meds if any: NOT Prescribed or Continued at Discharge Cerebrovascular accident Inclusion Criteria At DC or during hospital stay patient has or had the following: CVA/TIA Diagnosis No Discharge Core Measures Meds if any: Prescribed or Continued at Discharge Meds if any: NOT Prescribed or Continued at Discharge Venous thromboembolism Inclusion Criteria VTE Diagnosis No VTE Type NONE VTE Confirmed by (Test) NONE Discharge Core Measures - Per Current guidelines, there needs to be overlap - treatment for the first 5 days of Warfarin therapy. - If discharged on Warfarin prior to 5 days of - overlap therapy, the patient will need to be - assessed for post discharge needs including - *Post discharge parental anticoagulation - *Warfarin and/or parental anticoagulation education - *Follow up date to check INR post discharge At least 5 days overlap therapy as Inpatient No Meds if any: Prescribed or Continued at Discharge Note: Overlap Therapy is Warfarin and Anticoagulant Meds if any: NOT Prescribed or Continued at Discharge
--- NOTE | 2016-11-24 13:23 | Discharge Summary ---
Visit Information Visit Dates Admission Date: 11/23/16 Discharge Date: 11/24/16 Hospital Course Course Attending Physician: ILAN HENDRICKS,KELSEA Mead Primary Care Physician: MICHELLE HENDRICKS,MARINO Carty Hospital Course: 86-year-old female with past medical history of diastolic heart failure, defibrillation on Eliquis, anxiety, depression, severe osteoporosis and right first shoulder was admitted to [facility] with chief complaints of persistent watery diarrhea and generalized weakness. Vitals and admission: Blood pressure 1 160/78, respiration 18, pulse rate 72, temperature 97.4, oxygen saturation 93% on room air. Labs and admission: Hb 9.4, hemoglobin 13.4, hematocrit 38.8, platelet 291, sodium 133, potassium 4.9, chloride 97, bicarbonate 26, BUN 13, creatinine 0.7 Imaging on admission 1. Chest x-ray showed no acute parenchymal pulmonary disease. Hospital course 1. Diarrhea: Patient was admitted as an observation to general medical floor. Her diarrhea was most likely secondary to antibiotics. C. difficile was checked which was negative. She was started on IV fluids which was later stopped once patient was able to take by mouth. Her diarrhea resolved after stopping antibiotics. 2. Weakness: Likely due to poor by mouth intake and diarrhea. Patient was evaluated by physical therapy in the hospital recommended to continue home PT which patient was already discharged on from a previous admission. She has a 24 -hour home care and will continue PT at home. 3. History of A. fib: continued on Eliquis for anticoagulation, amiodarone 200 mg daily and metoprolol for rate control 4. History of diastolic heart failure: Bumex was held on admission secondary to diarrhea which was later restarted. 5. History of anxiety/depression: continued on Abilify 5 mg and duloxetine DNR/DNI Allergies: Coded Allergies: Iodinated Contrast Media - Oral and (IODINATED CONTRAST MEDIA - IV DYE) (Severe, HEART STOPPED 11/23/16) morphine (Severe, COLLAPSE 11/23/16) Pertinent Lab Results: Laboratory Tests 11/24 11/23 0615 1635 Chemistry Sodium (137 - 145 mmol/L) 133 L Potassium (3.5 - 5.1 mmol/L) 4.1 Chloride (98 - 107 mmol/L) 99 Carbon Dioxide (22 - 30 mmol/L) 27 Anion Gap (5 - 16) 7 BUN (7 - 17 mg/dL) 10 Creatinine (0.5 - 1.0 mg/dL) 0.7 Estimated GFR (>60 ml/min) > 60 BUN/Creatinine Ratio (7 - 25 %) 14.3 Troponin I (< 0.11 ng/ml) < 0.01 Hematology CBC w Diff NO MAN DIFF REQ WBC (4.8 - 10.8 /CUMM) 7.7 RBC (4.20 - 5.40 /CUMM) 4.35 Hgb (12.0 - 16.0 G/DL) 13.9 Hct (37 - 47 %) 41.4 MCV (81.0 - 99.0 FL) 95.2 MCH (27.0 - 31.0 PG) 31.9 H RDW (11.5 - 14.5 %) 14.8 H Plt Count (130 - 400 /CUMM) 287 MPV (7.4 - 10.4 FL) 7.6 Gran % (42.2 - 75.2 %) 75.0 Lymphocytes % (20.5 - 51.1 %) 16.1 L Monocytes % (1.7 - 9.3 %) 7.6 Eosinophils % (0 - 5 %) 1.0 Basophils % (0.0 - 2.0 %) 0.3 Absolute Granulocytes (1.4 - 6.5 /CUMM) 5.8 Absolute Lymphocytes (1.2 - 3.4 /CUMM) 1.2 Absolute Monocytes (0.10 - 0.60 /CUMM) 0.6 Absolute Eosinophils (0.0 - 0.7 /CUMM) 0.1 Absolute Basophils (0.0 - 0.2 /CUMM) 0 PUBS MCHC (33.0 - 37.0 G/DL) 33.5 11/23 0645 Chemistry Sodium (137 - 145 mmol/L) 133 L Potassium (3.5 - 5.1 mmol/L) 4.9 Chloride (98 - 107 mmol/L) 97 L Carbon Dioxide (22 - 30 mmol/L) 26 Anion Gap (5 - 16) 10 BUN (7 - 17 mg/dL) 13 Creatinine (0.5 - 1.0 mg/dL) 0.7 Estimated GFR (>60 ml/min) > 60 BUN/Creatinine Ratio (7 - 25 %) 18.6 Glucose (65 - 99 mg/dL) 91 Calcium (8.4 - 10.2 mg/dL) 9.2 Total Bilirubin (0.2 - 1.3 mg/dL) 1.0 AST (14 - 36 U/L) 43 H ALT (9 - 52 U/L) 37 Alkaline Phosphatase (<127 U/L) 105 Troponin I (< 0.11 ng/ml) < 0.01 Total Protein (6.3 - 8.2 g/dL) 7.3 Albumin (3.5 - 5.0 g/dL) 4.0 Globulin (1.9 - 4.2 gm/dL) 3.3 Albumin/Globulin Ratio (1.1 - 2.2 %) 1.2 Hematology CBC w Diff NO MAN DIFF REQ WBC (4.8 - 10.8 /CUMM) 9.4 RBC (4.20 - 5.40 /CUMM) 3.98 L Hgb (12.0 - 16.0 G/DL) 13.4 Hct (37 - 47 %) 38.8 MCV (81.0 - 99.0 FL) 97.6 MCH (27.0 - 31.0 PG) 33.8 H RDW (11.5 - 14.5 %) 14.6 H Plt Count (130 - 400 /CUMM) 291 MPV (7.4 - 10.4 FL) 7.4 Gran % (42.2 - 75.2 %) 79.4 H Lymphocytes % (20.5 - 51.1 %) 11.6 L Monocytes % (1.7 - 9.3 %) 7.6 Eosinophils % (0 - 5 %) 1.1 Basophils % (0.0 - 2.0 %) 0.3 Absolute Granulocytes (1.4 - 6.5 /CUMM) 7.5 H Absolute Lymphocytes (1.2 - 3.4 /CUMM) 1.1 L Absolute Monocytes (0.10 - 0.60 /CUMM) 0.7 H Absolute Eosinophils (0.0 - 0.7 /CUMM) 0.1 Absolute Basophils (0.0 - 0.2 /CUMM) 0 PUBS MCHC (33.0 - 37.0 G/DL) 34.6 Disposition Summary Disposition Principal Diagnosis: 1. Diarrhea 2. Weakness Additional Diagnosis: 1. A fib on AC 2. Anxiety/depression Discharge Disposition: home health services Discharge Instructions General Discharge Information Code Status: Do Not Resucitate/Intubat Patient's Diet: Heart healthy diet Patient's Activity: 1. As tolerated with PT Follow-Up Instructions/Appts: 1. Follow up with PCP in a week upon discharge 2. COntinue home PT Medications at Discharge Discharge Medications: Stop taking the following medications: Augmentin (Augmentin 500-125 Tablet) 500 MG-125 MG TABLET ORAL TWICE DAILY Qty = 11 Continue taking these medications: Amiodarone HCl (Amiodarone HCl) 200 MG TABLET 1 Tablet ORAL DAILY Comments: Last Taken:11/24/16 Time:9:30 AM Pantoprazole Sodium (Protonix) 40 MG TABLET. 1 Tablet ORAL DAILY Comments: NOT GIVEN IN HOSPITAL Bumetanide (Bumetanide) 0.5 MG TABLET 1 Tablet ORAL DAILY Comments: Last Taken:11/24/16 Time:9:30 AM Aripiprazole (Abilify) 5 MG TABLET 1 Tablet ORAL DAILY Comments: Last Taken:11/24/16 Time:9:30 AM Valacyclovir Hydrochloride (Valtrex) 500 MG TABLET 1 Tablet ORAL AT BEDTIME Comments: Last Taken:11/23/16 Time:9:30 PM Naloxegol Oxalate (Movantik) 25 MG TABLET 1 Tablet ORAL DAILY Qty = 30 Comments: NOT GIVEN IN HOSPITAL Hydrocodone/Acetaminophen (Hydrocodon-Acetaminoph 7.5-300) 7.5 MG-300 MG TABLET 1 Tablet ORAL EVERY 8 HOURS NEEDED as needed for PAIN Comments: Last Taken:11/24/16 Time:12:10 AM Duloxetine Hydrochloride (Cymbalta) 30 MG CAPSULE. 90 Milligram ORAL DAILY Comments: Last Taken:11/24/16 Time:9:30 AM Apixaban (Eliquis) 2.5 MG TABLET 1 Tablet ORAL TWICE DAILY Comments: Last Taken:11/24/16 Time:9:30 AM Metoprolol Tartrate (Metoprolol Tartrate) 25 MG TABLET 0.5 Tablet ORAL TWICE DAILY Comments: Last Taken:11/24/16 Time:9:30 AM Docusate Sodium (Colace) 100 MG CAPSULE 1 Capsule ORAL DAILY Comments: NOT GIVEN IN HOSPITAL Copies To: MICHELLE HENDRICKS,MARINO Carty
== END 2016-11-24 15:35 | disposition home health service (06) ==
LOC: ENRESERVDT → ENRESERVTM → ERH 05:53 → ENPENDDIS 10:34 → ERHI 10:34 → 2NB 10:34 → ERHI 10:34 → ENTRNSPT 12:16 → EDTRNSPTSTS 12:21 → EDTRNSPTTYP 12:21 → 2NB 13:09 → CMPTRNSPT 13:51 → 2NB 11-24 15:35
PROVIDERS: Emergency Medicine; Internal Medicine; ADMIT Internal Medicine
DX: R19.7 Diarrhea, unspecified (principal); I50.32 Chronic diastolic (congestive) heart failure; F41.9 Anxiety disorder, unspecified; F32.9 Major depressive disorder, single episode, unspecified; M81.0 Age-related osteoporosis without current pathological fracture; I48.91 Unspecified atrial fibrillation; Z79.01 Long term (current) use of anticoagulants; R53.1 Weakness
CPT/HCPCS: 36415; 82436; 87045; 93005; 93010; 96360; 97116-GP; 97161-GP; G0378; G8978-GP; G8979-GP; G8980-GP; J3490

== ENCOUNTER 2016-11-29 20:41 | Observation (INO) | payer OTHER, MEDICARE ==
[~2016-11-29 20:41] MED LIST changes: +COLACE100 M1 PO; +METOPROLOL TART25 M1 PO
--- NOTE | 2016-11-29 21:49 | ED GENERAL ADULT ---
History of Present Illness General Chief Complaint: General Adult Stated Complaint: PER SON,"FEVER AND CANT WALK, AND BREATHING ISSUES Source: patient, family, old records Exam Limitations: no limitations Vital Signs & Intake/Output Vital Signs & Intake/Output Vital Signs Date Time Temp Pulse Resp B/P Pulse O2 O2 Flow FiO2 Ox Delivery Rate 11/30 1037 99.1 71 20 134/63 100 Nasal 2.5L Cannula 11/30 0844 100.5 11/30 0807 101.2 11/30 0800 101.2 78 30 161/72 97 Nasal 2.0L Cannula 11/30 0755 96 Nasal 2.0L Cannula 11/30 0548 92 11/30 0530 100.5 74 20 164/70 92 Room Air 11/30 0111 73 18 145/67 93 Room Air 11/30 0022 99.4 11/29 2357 99.4 87 22 134/63 93 Room Air 11/29 2059 99.0 84 22 129/71 93 Room Air ED Intake and Output 11/30 0000 11/29 1200 Intake Total 1025 Output Total Balance 1025 Intake, IV 1000 Intake, Oral 25 Patient 82 lb 0.02 oz Weight Allergies Coded Allergies: Iodinated Contrast Media - Oral and (IODINATED CONTRAST MEDIA - IV DYE) (Severe, HEART STOPPED 11/23/16) morphine (Severe, COLLAPSE 11/23/16) Reconcile Medications Amiodarone HCl 200 MG TABLET 1 TAB PO DAILY AFIB (Reported) Apixaban (Eliquis) 2.5 MG TABLET 1 TAB PO BID BLOOD THINNER (Reported) Aripiprazole (Abilify) 5 MG TABLET 1 TAB PO DAILY ANXIETY (Reported) Bumetanide 0.5 MG TABLET 1 TAB PO DAILY WATER PILL (Reported) Docusate Sodium (Colace) 100 MG CAPSULE 1 CAP PO DAILY STOOL SOFTENER ( Reported) Duloxetine Hydrochloride (Cymbalta) 30 MG CAPSULE.DR 90 MG PO DAILY MENTAL HEALTH (Reported) Hydrocodone/Acetaminophen (Hydrocodon-Acetaminoph 7.5-300) 7.5 MG-300 MG TABLET 1 TAB PO Q8P PRN PAIN (Reported) Metoprolol Tartrate 25 MG TABLET 0.5 TAB PO BID HEART (Reported) Naloxegol Oxalate (Movantik) 25 MG TABLET 1 TAB PO DAILY CONSTIPATION ( Reported) Pantoprazole Sodium (Protonix) 40 MG TABLET.DR 1 TAB PO DAILY ACID REFLUX ( Reported) Valacyclovir Hydrochloride (Valtrex) 500 MG TABLET 1 TAB PO AT BEDTIME SHINGLES PREVENTION (Reported) Triage Note: PER PT AND FAMILY DIARRHEA X 6 YESTERDAY TODAY LAYING IN BED AND FELT WEAK LIKE PASSING OUT Triage Nurses Notes Reviewed? yes HPI: Patient brought in by her family for increasing weakness and fatigue and fevers that all started today. Patient had diarrhea with 6 bowel movements yesterday. Patient was recently treated for pneumonia and then she developed diarrhea. Patient was admitted. Her C. difficile was negative. Patient was only discharged on November 24. Patient was feeling better until she had diarrhea yesterday and then the weakness fatigue and fevers today. Patient denies any abdominal pain. There is no nausea or vomiting. (BELKIS HENDRICKS,ANABELLE Carty) Past History Travel History Traveled to [place] past 21 day No Medical History Any Pertinent Medical History? see below for history Neurological: NONE EENT: NONE Cardiovascular: AFIB, CHF, hypertension, ANGIOPLASTY Respiratory: pneumonia Gastrointestinal: GERD Hepatic: NONE Renal: NONE Musculoskeletal: CHRONIC RIGHT SHOULDER PAIN, DEFORMITY, HISTORY OF HUMERUS FRACTURE Psychiatric: chronic pain disorder, depression Blood Disorders: NONE Cancer(s): NONE Other Medical Hx: Shingles History of MRSA: No History of VRE: No History of CDIFF: No Surgical History Surgical History: ANGIOPLASTY R ARM SURGERY right shoulder surgery Psychosocial History Who do you live with Patient/Self Services at Home [employer] What is your primary language Setswana Tobacco Use: Never used ETOH Use: denies use Illicit Drug Use: denies illicit drug use Family History Family History, If Any: MOTHER FH: CAD (coronary artery disease) FATHER FH: CAD (coronary artery disease) Hx Contributory? No (BELKIS HENDRICKS,ANABELLE Carty) Review of Systems Review of Systems Constitutional: Reports: see HPI, chills, fever, weakness. EENTM: Reports: no symptoms. Respiratory: Reports: no symptoms. Cardiovascular: Reports: no symptoms. GI: Reports: see HPI, diarrhea (YESTERDAY). Genitourinary: Reports: no symptoms. Musculoskeletal: Reports: no symptoms. Skin: Reports: no symptoms. Neurological/Psychological: Reports: no symptoms. Hematologic/Endocrine: Reports: no symptoms. Immunologic/Allergic: Reports: no symptoms. All Other Systems: Reviewed and Negative (ANABELLE TAMAYO MD) Physical Exam Physical Exam General Appearance: well developed/nourished, alert, awake, anxious, mild distress Head: atraumatic, normal appearance Eyes: Bilateral: PERRL, EOMI. Ears, Nose, Throat: DRY MUCOUS MEMBRANES Neck: normal inspection, supple, full range of motion Respiratory: normal breath sounds, chest non-tender, no respiratory distress, lungs clear Cardiovascular: regular rate/rhythm, normal peripheral pulses Gastrointestinal: normal bowel sounds, soft, non-tender, no organomegaly Back: normal inspection, normal range of motion Extremities: normal inspection, normal capillary refill, normal range of motion, no edema Neurologic/Psych: no motor/sensory deficits, awake, alert, oriented x 3, normal mood/affect Skin: intact, normal color, warm/dry Lymphatic: no anterior cervical tianna Core Measures ACS in differential dx? No CVA/TIA Diagnosis: No Severe Sepsis Present: No Septic Shock Present: No (BELKIS HENDRICKS,ANABELLE Carty) Progress Differential Diagnoses I considered the following diagnoses in my evaluation of the patient: [Sepsis, electrolyte abnormality, pneumonia, bacteremia, UTI, C. difficile, dehydration] Plan of Care: Orders Procedure Date/time Status Heart Healthy Diet 11/30 L Active Regular Diet 11/30 B Complete Pathway - chart 11/30 1032 Active Pathway - chart 11/30 1030 Active House Staff 11/30 1030 Active Patient Data 11/30 1030 Active Code Status 11/30 1030 Active Patient Data 11/30 0948 Active OXYGEN SETUP (GEN) 11/30 0935 Active Saline Lock 11/[address] in observation 11/30 0935 Active Vital Signs 11/30 0935 Active Activity/Ambulation 11/30 0935 Active Discharge Patient 11/30 0934 Active CASE MANAGEMENT CONSULT 11/30 0640 Active CBC WITHOUT DIFFERENTIAL 11/30 0600 Complete RAPID VIRAL INFLUENZA A 11/30 0530 Complete VIRAL CULTURE 11/[address] in observation 11/30 0007 Active Patient Data 11/30 0007 Active Code Status 11/30 0007 Complete SWALLOW EVALUATION 11/30 UNK Active VTE Mechanical Prophylaxis 11/30 UNK Active Intake & Output 11/29 2222 Active Add-on Test (ER Only) 11/29 2151 Active CULTURE,URINE 11/29 2151 Active BLOOD CULTURE 11/29 2151 Active URINALYSIS 11/29 2151 Complete LACTIC ACID 11/29 2120 Complete TROPONIN LEVEL 04/03 2100 Complete MAGNESIUM 11/29 2099 Complete LIPASE 11/29 2099 Complete COMPREHENSIVE METABOLIC PANEL 11/29 2099 Complete CBC WITHOUT DIFFERENTIAL 11/29 2099 Complete AMYLASE 11/29 2099 Complete EKG 11/29 2099 Active Current Medications Sig/Letty Start time Last Medication Dose Stop Time Status Admin Patient Medication 1 UNIT 1000 12/01 1000 AC Teaching 12/01 1001 (ANTICOAGULANT EDUCATION) Enoxaparin Sodium 30 MG DAILY 11/30 1045 UNVr (Lovenox) Acetaminophen 650 MG Q6P PRN 11/30 1030 AC (Tylenol) Acetaminophen 1,000 MG Q6P PRN 11/30 1030 AC (Ofirmev) Oxycodone/ 2 TAB Q6P PRN 11/30 1030 AC Acetaminophen (Percocet) Laboratory Tests 11/30/16 0610: CBC w Diff MAN DIFF ORDERED, RBC 3.96 L, MCV 94.6, MCH 31.8 H, RDW 14.6 H, MPV 7.5, Gran % 91.0 H, Lymphocytes % 5.9 L, Monocytes % 2.9, Eosinophils % 0, Basophils % 0.2, Absolute Granulocytes 19.8 H, Segmented Neutrophils 85 H, Band Neutrophils 7 H, Absolute Lymphocytes 1.3, Lymphocytes 5 L, Monocytes 3, Absolute Monocytes 0.6, Absolute Eosinophils 0, Absolute Basophils 0, Platelet Estimate ADEQUATE, Normocytic RBCs VERIFIED, Normochromic RBCs VERIFIED, PUBS MCHC 33.6 11/30/16 0530: Virus Culture Pending 11/29/16 2352: Urine Color STRAW, Urine Clarity CLEAR, Urine pH 6.0, Ur Specific [place] 1.010, Urine Protein NEG, Urine Ketones NEG, Urine Nitrite NEG, Urine Bilirubin NEG, Urine Urobilinogen 0.2, Ur Leukocyte Esterase NEG, Ur Microscopic EXAM NOT REQUIRED, Urine Hemoglobin NEG, Urine Glucose NEG 11/29/160: Anion Gap 11, Estimated GFR > 60, BUN/Creatinine Ratio 21.4, Glucose 116 H, Lactic Acid 1.8, Calcium 9.2, Magnesium 1.4 L, Total Bilirubin 0.6, AST 39 H, ALT 41, Alkaline Phosphatase 122, Troponin I < 0.01, Total Protein 7.2, Albumin 3.8, Globulin 3.4, Albumin/Globulin Ratio 1.1, Amylase 64, Lipase 268, CBC w Diff MAN DIFF ORDERED, RBC 3.80 L, MCV 98.0, MCH 35.2 H, RDW 14.6 H, MPV 7.9, Gran % 93.3 H, Lymphocytes % 3.4 L, Monocytes % 3.2, Eosinophils % 0, Basophils % 0.1, Absolute Granulocytes 17.6 H, Segmented Neutrophils 96 H, Absolute Lymphocytes 0.6 L, Lymphocytes 2 L, Monocytes 2, Absolute Monocytes 0.6, Absolute Eosinophils 0, Absolute Basophils 0, Platelet Estimate VERIFIED BY SMEAR, Normocytic RBCs VERIFIED, Normochromic RBCs VERIFIED, PUBS MCHC 35.9, Fld Total RBCs Counted 100 Microbiology 11/30 0537 NASOPHARYN: Influenza Virus A & B Rapid Smear - COMP 11/30 2351 URINE ROUT: Urine Culture - RES 11/29 2214 BLOOD: Blood Culture - RECD 11/29 2199 BLOOD: Blood Culture - RECD Diagnostic Imaging: Viewed by Me: Radiology Read, CT Scan. Discussed w/RAD: Radiology Read, CT Scan. Radiology Impression: PATIENT: SANDHYA COLLINS PRESENT AGE: 86 PATIENT ACCOUNT NO: [id number] : 29 LOCATION: [facility] ORDERING PHYSICIAN: ANABELLE TAMAYO MD SERVICE DATE: 11/29/16 EXAM TYPE: CAT - CT ABD & PELVIS W/O IV CONTRAS EXAMINATION: CT ABDOMEN AND PELVIS WITHOUT CONTRAST CLINICAL INFORMATION: Fever. Elevated WBC. COMPARISON: CT pelvis 2015. CT scan abdomen pelvis 03/14/2015 TECHNIQUE: Multidetector volumetric imaging was performed from the superior aspect of the liver through the pubic symphysis. Sagittal and coronal reformatted images were obtained on the technologist's workstation. DLP: 226.19 mGy-cm FINDINGS: LUNG BASES: Chronic increased interstitial lung markings and peribronchial thickening at both lung bases with bronchiectasis at the lingula. Chronic coarse calcification right perihilar lung stable. No acute infiltrate. No pleural effusion. LIVER, GALLBLADDER, AND BILIARY TREE: Liver density remains increased similar to prior CAT scan of 02/10/2015. This is presumably due to amiodarone therapy. No focal liver lesion. There are a few tiny calcified gallstones in the dependent gallbladder, sagittal image 72. No edema around the gallbladder. No bile duct dilatation. PANCREAS: Unremarkable. SPLEEN: Unremarkable. ADRENAL GLANDS: Unremarkable. KIDNEYS AND URETERS: The kidneys are normal in size, shape, and attenuation. No hydronephrosis, hydroureter, or calculi seen. No perinephric stranding. BLADDER: Unremarkable. GASTROINTESTINAL TRACT: No acute change of the bowel. No bowel obstruction. No bowel wall thickening or edema. Moderate to large-volume of stool throughout the colon. The appendix is not seen. No inflammation of mesentery. ABDOMINAL WALL: No significant hernia is appreciated. LYMPH NODES: Normal. VASCULAR: Stable abdominal aortic aneurysm. Saccular aneurysm of the mid aorta measures 3.3 cm in diameter. This is unchanged since CAT scan of 02/10/2015. There is atherosclerotic vascular wall calcifications of aorta and iliac arteries. PELVIC VISCERA: Uterus is anteverted. No adnexal abnormality. OSSEOUS STRUCTURES: Multilevel degenerative change of the spine with vacuum disc phenomena and facet joint arthrosis. Stable old compression deformity of T10 and T11 and T12. Slight central depression of the L2 superior and inferior endplates. There is slight depression of the superior endplate of L1 has progressed since the prior exam of 09/14/2014. Old healed fracture with residual deformity of the left symphysis pubis IMPRESSION: No acute abnormality CT scan abdomen and pelvis. 1. Cholelithiasis. 2. Stable 3.3 cm abdominal aortic aneurysm 3.. No change in the hyperdensity of the liver parenchyma is prior CAT scan 02/10/2015 presumably from prior amiodarone therapy. 4. Multiple compression deformities of the spine most of which are stable since the exam of 09/14/2014. Slight increased compression superior endplate of L1 since prior CAT scan. DICTATED BY: VARGHESE BOYD MD DATE/TIME DICTATED:11/29/162344 INTERNET PROGRAMMER:OZZIE DATE/TIME TRANSCRIBED:11/29/162344 CONFIDENTIAL, DO NOT COPY WITHOUT APPROPRIATE AUTHORIZATION. <Electronically signed in Other Vendor System> SIGNED BY: VARGHESE BOYD MD 11/30/16 0000 CXR Impression: PATIENT: SANDHYA COLLINS PRESENT AGE: 86 PATIENT ACCOUNT NO: [id number] : 29 LOCATION: [facility] ORDERING PHYSICIAN: ANABELLE TAMAYO MD SERVICE DATE: 11/29/16 EXAM TYPE: RAD - XRY- PORTABLE CHEST XRAY EXAMINATION: XR PORTABLE CHEST CLINICAL INFORMATION: Shortness of breath and fever. COMPARISON: Chest x-ray 11/23/2016. TECHNIQUE: Portable AP view of the chest was obtained. FINDINGS: Allowing for differences in technique, patient positioning and aeration of the lungs, single AP view of the chest demonstrates no significant interval changes in the appearance of the chest. Redemonstrated are chronic changes within the bilateral lung apices, right greater than left, characterized by right apical thickening and scarring with associated fibrosis. A previously described spiculated nodule within the right lung apex is partially obscured secondary to patient positioning. No new airspace consolidation is identified and there are no pleural effusions or pneumothoraces. There is minimal linear scarring versus atelectasis within the lingula. Focal calcifications are again identified within the right lung base. No pleural effusions or pneumothoraces. Stable cardiomediastinal contours. Mechanical hardware related to prior right shoulder arthroplasty with superior migration of the right humerus relative to the glenoid. IMPRESSION: Chronic changes within the bilateral lungs, grossly unchanged relative to the prior exam. No acute pulmonary process. DICTATED BY: REGINA MARTINEZ MD DATE/TIME DICTATED:11/29/162225 INTERNET PROGRAMMER:OZZIE DATE/TIME TRANSCRIBED:2225 CONFIDENTIAL, DO NOT COPY WITHOUT APPROPRIATE AUTHORIZATION. < Electronically signed in Other Vendor System> SIGNED BY: REGINA MARTINEZ MD 11/29/162231 Initial ED EKG: NSR, LVH, nonspecific ST T wave chg Prior EKG: unchanged Hand-Off Endorsed To: MAXIME GARCIA MD Endorsed Time: 0700 Pending: other (RE-EVAL) (ANABELLE TAMAYO MD) Comments: Continues to feel weak, short of breath. Recurrent fever, elevated WBC. (MAXIME GARCIA MD) Departure Departure Disposition: STILL A PATIENT Condition: Stable Referrals: MICHELLE HENDRICKS,MARINO Carty (PCP/Family) Departure Forms: Customer Survey General Discharge Information (ANABELLE TAMAYO MD) Departure Time of Disposition: 930 Clinical Impression Primary Impression: Leukocytosis Qualifiers: Leukocytosis type: unspecified Qualified Code: D72.829 - Elevated white blood cell count, unspecified Secondary Impressions: Diarrhea Qualifiers: Diarrhea type: unspecified type Qualified Code: R19.7 - Diarrhea, unspecified Fever Qualifiers: Fever type: unspecified Qualified Code: R50.9 - Fever, unspecified Observation Note Spoke With: LISA MENJIVAR MD Physician Advisor Notified: DAVID HENDRICKS,KAMALA Carty Place Patient In: Non-ED OBS Care Area Rationale for Observation: My rational for observation is as follows recurrent fever leukocytosis diarrhea weakness for IV hydration fever control physical therapy medication adjustment stool studies continuing care discharge planning. (MAXIME GARCIA MD) Critical Care Note Critical Care Note Critical Care Time: non-applicable (ANABELLE TAMAYO MD) ED Attending Observation Initial Observation Note: I have seen and personally examined SANDHYA COLLINS on 11/30/16 at 0005. I agree with the current emergency department documentation. The disposition (admission or discharge) is uncertain at this time, she needs a period of observation for the following reason(s): [Fever and leukocytosis. Source of infection is unknown. Patient was recently discharged from the hospital on . Will hydrate overnight and repeat labs in the morning. If her white count decreases the patient may be discharged however if it remains elevated she will require admission.] The ED Nurse caring for this patient has been personally informed as to what the patient is being observed for. Observation Re-Evaluation: I have reevaluated SANDHYA COLLINS on 11/30/16 at 0535. The physical findings that support the continued need to observe this patient include [patient continues to run a low-grade temperature. Patient noticed to off after drinking thin liquids. Patient's caregiver has noted this: Nonfocal quite a while and states that she takes her medicines with applesauce. Her lungs remained clear to auscultation. Cardiac exam is regular rate and rhythm with no murmur. Her abdomen is soft and nontender with positive bowel sounds.]. (ANABELLE TAMAYO MD) Observation Discharge: I have reevaluated SANDHYA COLLINS on 11/30/16 at 0933. The patient is: (): Stable for discharge (x): To be admitted to Nursing Floor (): To be placed in Observation on Nursing Floor (): For transfer to other facility The patient was being observed for fever leukocytosis As a result of that observation, I have determined hospitalization is required for further evaluation and treatment.. (MAXIME GARCIA MD)
[2016-11-29 22:00] LABS: ABSOLUTE BASOPHIL COUNT 0 /CUMM (0.0-0.2); ABSOLUTE EOSINOPHIL COUNT 0 /CUMM (0.0-0.7); ABSOLUTE GRANULOCYTE CT 17.6 /CUMM (1.4-6.5); ABSOLUTE LYMPH COUNT 0.6 /CUMM (1.2-3.4); ABSOLUTE MONOCYTE COUNT 0.6 /CUMM (0.10-0.60); BASOPHIL % 0.1 % (0.0-2.0); EOSINOPHIL % 0 % (0-5); HEMATOCRIT 37.2 % (37-47); MEAN CORPUSCULAR HGB CONC 35.9 G/DL (33.0-37.0); MEAN PLATELET VOLUME 7.9 FL (7.4-10.4); PLATELET COUNT 266 /CUMM (130-400); RBC DISTRIBUTION WIDTH 14.6 % (11.5-14.5)
[2016-11-29 22:01] LABS: GRANULOCYTE % 93.3 % (42.2-75.2); MEAN CORPUSCULAR HGB 35.2 PG (27.0-31.0); WHITE BLOOD CELL COUNT 18.9 /CUMM (4.8-10.8)
--- NOTE | 2016-11-29 22:32 | RADIOLOGY REPORT ---
EXAMINATION: XR PORTABLE CHEST CLINICAL INFORMATION: Shortness of breath and fever. COMPARISON: Chest x-ray 11/23/2016. TECHNIQUE: Portable AP view of the chest was obtained. FINDINGS: Allowing for differences in technique, patient positioning and aeration of the lungs, single AP view of the chest demonstrates no significant interval changes in the appearance of the chest. Redemonstrated are chronic changes within the bilateral lung apices, right greater than left, characterized by right apical thickening and scarring with associated fibrosis. A previously described spiculated nodule within the right lung apex is partially obscured secondary to patient positioning. No new airspace consolidation is identified and there are no pleural effusions or pneumothoraces. There is minimal linear scarring versus atelectasis within the lingula. Focal calcifications are again identified within the right lung base. No pleural effusions or pneumothoraces. Stable cardiomediastinal contours. Mechanical hardware related to prior right shoulder arthroplasty with superior migration of the right humerus relative to the glenoid. IMPRESSION: Chronic changes within the bilateral lungs, grossly unchanged relative to the prior exam. No acute pulmonary process.
--- NOTE | 2016-11-30 | CT SCAN REPORT ---
EXAMINATION: CT ABDOMEN AND PELVIS WITHOUT CONTRAST CLINICAL INFORMATION: Fever. Elevated WBC. COMPARISON: CT pelvis 03/22/2016. CT scan abdomen pelvis 03/14/2015 TECHNIQUE: Multidetector volumetric imaging was performed from the superior aspect of the liver through the pubic symphysis. Sagittal and coronal reformatted images were obtained on the technologist's workstation. DLP: 226.19 mGy-cm FINDINGS: LUNG BASES: Chronic increased interstitial lung markings and peribronchial thickening at both lung bases with bronchiectasis at the lingula. Chronic coarse calcification right perihilar lung stable. No acute infiltrate. No pleural effusion. LIVER, GALLBLADDER, AND BILIARY TREE: Liver density remains increased similar to prior CAT scan of 02/10/2015. This is presumably due to amiodarone therapy. No focal liver lesion. There are a few tiny calcified gallstones in the dependent gallbladder, sagittal image 72. No edema around the gallbladder. No bile duct dilatation. PANCREAS: Unremarkable. SPLEEN: Unremarkable. ADRENAL GLANDS: Unremarkable. KIDNEYS AND URETERS: The kidneys are normal in size, shape, and attenuation. No hydronephrosis, hydroureter, or calculi seen. No perinephric stranding. BLADDER: Unremarkable. GASTROINTESTINAL TRACT: No acute change of the bowel. No bowel obstruction. No bowel wall thickening or edema. Moderate to large-volume of stool throughout the colon. The appendix is not seen. No inflammation of mesentery. ABDOMINAL WALL: No significant hernia is appreciated. LYMPH NODES: Normal. VASCULAR: Stable abdominal aortic aneurysm. Saccular aneurysm of the mid aorta measures 3.3 cm in diameter. This is unchanged since CAT scan of 02/10/2015. There is atherosclerotic vascular wall calcifications of aorta and iliac arteries. PELVIC VISCERA: Uterus is anteverted. No adnexal abnormality. OSSEOUS STRUCTURES: Multilevel degenerative change of the spine with vacuum disc phenomena and facet joint arthrosis. Stable old compression deformity of T10 and T11 and T12. Slight central depression of the L2 superior and inferior endplates. There is slight depression of the superior endplate of L1 has progressed since the prior exam of 09/14/2014. Old healed fracture with residual deformity of the left symphysis pubis IMPRESSION: No acute abnormality CT scan abdomen and pelvis. 1. Cholelithiasis. 2. Stable 3.3 cm abdominal aortic aneurysm 3.. No change in the hyperdensity of the liver parenchyma is prior CAT scan 02/10/2015 presumably from prior amiodarone therapy. 4. Multiple compression deformities of the spine most of which are stable since the exam of 09/14/2014. Slight increased compression superior endplate of L1 since prior CAT scan.
[2016-11-30 06:17] LABS: ABSOLUTE BASOPHIL COUNT 0 /CUMM (0.0-0.2); ABSOLUTE EOSINOPHIL COUNT 0 /CUMM (0.0-0.7); ABSOLUTE GRANULOCYTE CT 19.8 /CUMM (1.4-6.5); ABSOLUTE LYMPH COUNT 1.3 /CUMM (1.2-3.4); ABSOLUTE MONOCYTE COUNT 0.6 /CUMM (0.10-0.60); BASOPHIL % 0.2 % (0.0-2.0); EOSINOPHIL % 0 % (0-5); HEMATOCRIT 37.4 % (37-47); MEAN CORPUSCULAR HGB 31.8 PG (27.0-31.0); MEAN CORPUSCULAR HGB CONC 33.6 G/DL (33.0-37.0); MEAN CORPUSCULAR VOLUME 94.6 FL (81.0-99.0); MEAN PLATELET VOLUME 7.5 FL (7.4-10.4); PLATELET COUNT 253 /CUMM (130-400); RBC DISTRIBUTION WIDTH 14.6 % (11.5-14.5); RED BLOOD CELL CT 3.96 /CUMM (4.20-5.40); WHITE BLOOD CELL COUNT 21.7 /CUMM (4.8-10.8)
--- NOTE | 2016-11-30 09:49 | History & Physical ---
AAKASH BHATT 11/30/16 0949: General Information and HPI MD Statement: I have seen and personally examined SANDHYA COLLINS and documented this H&P. The patient is a 86 year old F who presented with a patient stated chief complaint of [diarrhea, and generalized weakness]. Source of Information: patient, family, old records, Remote Inpatient Coder Exam Limitations: clinical condition, poor historian History of Present Illness: Mrs Collins is an 86-year-old lady with a PMH of stage I diastolic dysfunction ( echo 2013 with LVEF 60-65%), pulmonary hypertension (RV systolic pressure > 55 mmHg), atrial fibrillation on Eliquis, anxiety, depression, osteoporosis of right shoulder, recent diagnosis of bronchiectasis and pneumonia sputum culture positive for ESBL who was brought in with complaints of diarrhea and generalized weakness. The patient was admitted to [facility] from 11/16-11/19 this year,found to have CAP with positive sputum culture for ESBL, sent home on Augmentin, returned on 2016 with complaints of multiple episodes of nonbloody diarrhea, stool C. difficile was negative. Augmentin was discontinued and she was discharged home with noticeable improvement in her symptoms over the subsequent 7 days. Information obtained from the patient's tip length checker (Lyric) and her son indicate a recurrence of diarrhea over the last 24 hours (6 episodes yesterday) associated with generalized weakness, difficulty with ambulation and exertional dyspnea. Of note, her tip length checker did give her a single dose of Movantik the day prior out of concern for possible constipation. Patient also endorses a long-standing history of nonspecific epigastric discomfort that appears to be postprandial in nature. No prior episodes of nausea or vomiting associated with this. ROS: Patient states that she feels much better this afternoon. She reports fevers and chills have resolved. Denies any dizziness, headache, blurred vision , chest pain, progressive/worsening shortness of breath, abdominal discomfort. Allergies/Medications Allergies: Coded Allergies: Iodinated Contrast Media - Oral and (IODINATED CONTRAST MEDIA - IV DYE) (Severe, HEART STOPPED 11/23/16) morphine (Severe, COLLAPSE 11/23/16) Home Med list Amiodarone HCl 200 MG TABLET 1 TAB PO DAILY AFIB (Reported) Apixaban (Eliquis) 2.5 MG TABLET 1 TAB PO BID BLOOD THINNER (Reported) Aripiprazole (Abilify) 5 MG TABLET 1 TAB PO DAILY ANXIETY (Reported) Bumetanide 0.5 MG TABLET 1 TAB PO DAILY WATER PILL (Reported) Docusate Sodium (Colace) 100 MG CAPSULE 1 CAP PO DAILY STOOL SOFTENER ( Reported) Duloxetine Hydrochloride (Cymbalta) 30 MG CAPSULE.DR 90 MG PO DAILY MENTAL HEALTH (Reported) Hydrocodone/Acetaminophen (Hydrocodon-Acetaminoph 7.5-300) 7.5 MG-300 MG TABLET 1 TAB PO Q8P PRN PAIN (Reported) Metoprolol Tartrate 25 MG TABLET 0.5 TAB PO BID HEART (Reported) Naloxegol Oxalate (Movantik) 25 MG TABLET 1 TAB PO DAILY CONSTIPATION ( Reported) Pantoprazole Sodium (Protonix) 40 MG TABLET.DR 1 TAB PO DAILY ACID REFLUX ( Reported) Valacyclovir Hydrochloride (Valtrex) 500 MG TABLET 1 TAB PO AT BEDTIME SHINGLES PREVENTION (Reported) Past History Travel History Traveled to [place] past 21 day No Medical History Neurological: NONE EENT: NONE Cardiovascular: AFIB, CHF, hypertension, ANGIOPLASTY Respiratory: pneumonia Gastrointestinal: GERD Hepatic: NONE Renal: NONE Musculoskeletal: CHRONIC RIGHT SHOULDER PAIN, DEFORMITY, HISTORY OF HUMERUS FRACTURE Psychiatric: chronic pain disorder, depression Blood Disorders: NONE Cancer(s): NONE Other Medical Hx: Shingles History of MRSA: No History of VRE: No History of CDIFF: No Surgical History Surgical History: ANGIOPLASTY R ARM SURGERY right shoulder surgery Past Family/Social History Family History Relations & Conditions if any MOTHER FH: CAD (coronary artery disease) FATHER FH: CAD (coronary artery disease) Psychosocial History Who Do You Live With? tip length checker Services at Home: [employer] Primary Language: Egyptian Smoking Status: Unknown If Ever Smoked ETOH Use: denies use Illicit Drug Use: denies illicit drug use Functional Ability ADLs Independent: dressing, eating. Needs Assist: toileting, bathing. Ambulation: walker IADLs Independent: telephone. Needs Assist: shopping, housework, finances, food prep, transportation, medication admin. Review of Systems Review of Systems Constitutional: Reports: see HPI. EENTM: Reports: no symptoms. Cardiovascular: Reports: no symptoms. Respiratory: Reports: see HPI. GI: Reports: see HPI. Genitourinary: Reports: no symptoms. Musculoskeletal: Reports: see HPI. Skin: Reports: no symptoms. Exam & Diagnostic Data Last 24 Hrs of Vital Signs/I&O Vital Signs Date Time Temp Pulse Resp B/P Pulse O2 O2 Flow FiO2 Ox Delivery Rate 11/30 1233 120/70 11/30 1113 97.8 71 19 100/50 98 11/30 1100 97 Nasal 2.0L Cannula 11/30 1037 99.1 71 20 134/63 100 Nasal 2.5L Cannula 11/30 0844 100.5 11/30 0807 101.2 11/30 0800 101.2 78 30 161/72 97 Nasal 2.0L Cannula 11/30 0755 96 Nasal 2.0L Cannula 11/30 0548 92 11/30 0530 100.5 74 20 164/70 92 Room Air 11/30 0111 73 18 145/67 93 Room Air 11/30 0022 99.4 11/29 2357 99.4 87 22 134/63 93 Room Air 11/29 2059 99.0 84 22 129/71 93 Room Air Intake & Output 11/30 1600 11/30 0800 11/30 0000 Intake Total 1025 Output Total 700 Balance -700 1025 Intake, IV 1000 Intake, Oral 25 Output, Urine 700 Patient 82 lb 82 lb 0.02 oz Weight Physical Exam General Appearance Cooperative, No Acute Distress Skin No Breakdown, No Significant Lesion HEENT Mucous memebranes appear slightly dry, Slight conjunctival pallor Cardiovascular Regular Rate, Normal S1, Normal S2, S4 gallop Lungs Normal Air Movement, Inspiratory stridor and mild crackles in the basilar regions Abdomen Normal Bowel Sounds, Soft, No Tenderness, No tenderness to palpation the spigaastric region Neurological Normal Speech, Normal Tone, Sensation Intact Extremities No Edema, Normal Pulses Vascular Pulses Symmetrical Last 24 Hrs of Labs/Maxim: Laboratory Tests 11/30/16 0610: CBC w Diff MAN DIFF ORDERED, RBC 3.96 L, MCV 94.6, MCH 31.8 H, RDW 14.6 H, MPV 7.5, Gran % 91.0 H, Lymphocytes % 5.9 L, Monocytes % 2.9, Eosinophils % 0, Basophils % 0.2, Absolute Granulocytes 19.8 H, Segmented Neutrophils 85 H, Band Neutrophils 7 H, Absolute Lymphocytes 1.3, Lymphocytes 5 L, Monocytes 3, Absolute Monocytes 0.6, Absolute Eosinophils 0, Absolute Basophils 0, Platelet Estimate ADEQUATE, Normocytic RBCs VERIFIED, Normochromic RBCs VERIFIED, PUBS MCHC 33.6 11/30/16 0530: Virus Culture Pending 11/29/162351: Urine Color STRAW, Urine Clarity CLEAR, Urine pH 6.0, Ur Specific [place] 1.010, Urine Protein NEG, Urine Ketones NEG, Urine Nitrite NEG, Urine Bilirubin NEG, Urine Urobilinogen 0.2, Ur Leukocyte Esterase NEG, Ur Microscopic EXAM NOT REQUIRED, Urine Hemoglobin NEG, Urine Glucose NEG 11/29/162119: Anion Gap 11, Estimated GFR > 60, BUN/Creatinine Ratio 21.4, Glucose 116 H, Lactic Acid 1.8, Calcium 9.2, Magnesium 1.4 L, Total Bilirubin 0.6, AST 39 H, ALT 41, Alkaline Phosphatase 122, Troponin I < 0.01, Total Protein 7.2, Albumin 3.8, Globulin 3.4, Albumin/Globulin Ratio 1.1, Amylase 64, Lipase 268, CBC w Diff MAN DIFF ORDERED, RBC 3.80 L, MCV 98.0, MCH 35.2 H, RDW 14.6 H, MPV 7.9, Gran % 93.3 H, Lymphocytes % 3.4 L, Monocytes % 3.2, Eosinophils % 0, Basophils % 0.1, Absolute Granulocytes 17.6 H, Segmented Neutrophils 96 H, Absolute Lymphocytes 0.6 L, Lymphocytes 2 L, Monocytes 2, Absolute Monocytes 0.6, Absolute Eosinophils 0, Absolute Basophils 0, Platelet Estimate VERIFIED BY SMEAR, Normocytic RBCs VERIFIED, Normochromic RBCs VERIFIED, PUBS MCHC 35.9, Fld Total RBCs Counted 100 Microbiology 11/30 1247 STOOL: Clostridium difficile Toxin A & B - ORD 11/30 0537 NASOPHARYN: Influenza Virus A & B Rapid Smear - COMP 11/29 235 URINE ROUT: Urine Culture - RES 11/29 2215 BLOOD: Blood Culture - RECD 11/29 2199 BLOOD: Blood Culture - RECD Diagnostic Data EKG Results Sinus rhythm. HR 80 bpm. Left atrial abnormality, probable LVH with secondary repolarization abnormality. Borderline inferior Q waves. TN interval 172. QTC 450 CXR Results Chronic changes within the bilateral lungs, grossly unchanged relative to the prior exam. No acute pulmonary process. Other Results CT abdomen pelvis: Cholelithiasis. Stable 3.3 cm abdominal aortic aneurysm No change in the hyperdensity of the liver parenchyma is prior CAT scan 2014 presumably from prior amiodarone therapy. Multiple compression deformities of the spine most of which are stable since the exam of 09/14/2014. Slight increased compression superior endplate of L1 since prior CAT scan. Assessment/Plan Assessment: 86-year-old lady with a PMH of stage I diastolic dysfunction (echo 2013 with LVEF 60-65%), pulmonary hypertension (RV systolic pressure > 55 mmHg), atrial fibrillation on Eliquis, anxiety, depression, osteoporosis of right shoulder, diagnosed in October 2016 with bronchiectasis and pneumonia, found to have sputum culture (+) for ESBL, sent home on a course of Augmentin but returned 5 days later with no diarrhea. Follow-up stool culture negative for C. difficile. Interval improvement over the next 7 days for recurrence of diarrhea after a dose of Movantik. This is also accompanied by generalized weakness, exertional dyspnea, fever. VS on admission: BP 129/71, HR 84, RR 22, SPO2 93% on 2L NC, T 99.0. MAXIMUM TEMPERATURE 101.2 Pertinent labs: WBC 18.9, H&H 13.4/37.2, platelets 266K, sodium 131, potassium 3.7, chloride 96, bicarbonate 24, BUN/CR 15/0.7, glucose 116 Repeat WBC: 21.7 with 7% bandemia Magnesium 1.4 AST/ALT: 39/41 UA: Unremarkable CXR and CT abdomen pelvis as indicated above Problem list: 1. SIRS criteria: WBC 21.7, 7% bandemia. T101.2 2. Diarrhea 3. History of postprandial epigastric discomfort 4. Bronchiectasis/aspiration pneumonia 5. Previous sputum culture positive for ESBL 6. Atrial fibrillation 7. Stage I diastolic dysfunction 8. Pulmonary hypertension 9. Hypomagnesemia Plan: 1. SIRS criteria: WBC 21.7, 7% bandemia. T101.2 * Source likely could be secondary to aspiration pneumonia. She was noted to choke during the bedside swallow evaluation * Admit to general medicine * Follow up blood and urine cultures * Patient was noted to choke during bedside swallow evaluation. Follow-up report on [facility] [place] * ID consult placed * Blood pressure remains stable at this time and resolution of fever. 2. Diarrhea * Likely secondary to Movantik * We'll obtain repeat stool C. difficile culture. If negative and persistent diarrhea, send out for stool C. difficile PCR * Additional DDX of microscopic colitis less likely at this time since the duration of symptoms does not classify as chronic diarrhea 3. History of postprandial epigastric discomfort * CT findings of show evidence of nephrolithiasis but no evidence of obstruction * At this time it would not be unreasonable to defer pursuing any intervention based on no evidence of obstruction, elevation in LFTs, advanced age and multiple comorbidities. Symptoms are to occur, concern for cholangitis/ cholecystitis arises, would obtain surgical consult at that time 4. Bronchiectasis/aspiration pneumonia * Pulmonology consult has been placed with Dr. Hyatt * Follow-up chest CT 5. Previous sputum culture positive for ESBL * No evidence of colitis on CT, normal lactic acid. Resolution of fever over the past few hours * Previous ESBL culture sensitive to Unasyn * ID consult has been placed * If she does spike a fever, become hemodynamically unstable, consider starting her on Unasyn for possible ESBL/aspiration pneumonia * Follow-up cultures 6. Atrial fibrillation * Continue with Eliquis 2.5 mg BID * Continue amiodarone 200 mg daily, metoprolol 12.5 mg BID 7. Stage I diastolic dysfunction/Pulmonary hypertension * Patient likely does have underlying preload fluid dependence. Will monitor blood pressure, restart her diuretics once BP is stable 8. Diet * Heart healthy diet, ground, nectar thick * Follow-up modified barium swallow and adjust accordingly 9. DVT prophylaxis * Eliquis 2.5 mg BID 10. CODE STATUS * DNR/DNI FOLLOW UP: * Follow-up magnesium level s/p supplementation with IV magnesium sulfate * Follow-up repeat lactic acid and BEP this afternoon * Follow-up orthostatics @ 1600. Currently on NS @ 100/hr * Follow ID recommendations * Follow-up pulmonology recommendations As Ranked By This Provider Problem List: 1. SIRS (systemic inflammatory response syndrome) 2. Diarrhea Qualifiers Diarrhea type: unspecified type Qualified Code: R19.7 - Diarrhea, unspecified 3. Bronchiectasis 4. Aspiration pneumonia 5. History of ESBL E. coli infection 6. ATRIAL FIBRILATION 7. Pulmonary hypertension 8. Hypomagnesemia Core Measures/Miscellaneous Acute Coronary Syndrome ACS Diagnosis: No Cerebrovascular Accident CVA/TIA Diagnosis: No Congestive Heart Failure CHF Diagnosis: No Venous Thromboembolism VTE Risk Factors: Age > 40 [facility] prophylaxis d/t: No contraindications No VTE Pharm Prophylaxis d/t: No contraindications VTE Diagnosis: No VTE Type: NONE VTE Confirmed by (Test): NONE Severe Sepsis Severe Sepsis Present: No Septic Shock Septic Shock Present: No Miscellaneous Documentation Attending Case Discussed With: LISA MENJIVAR MD Primary Care Physician: MARINO MARTINEZ MD Patient sees these Specialists Dr. Hyatt (pulmonology) Level of Patient Care: General Medicine Resident Review Statement Resident Statement: examined this patient, discussed with intern architect, agreed with intern architect, discussed with family, reviewed EMR data (avail), discussed with nursing , reviewed images RAFIQ HAMMOND MD 12/01/16 0957: Attending MD Review Statement Attending Statement Attending MD Statement: examined this patient, discuss w/resident/PA/PLASTIC TILE LAYER, agreed w/resident/PA/PLASTIC TILE LAYER, discussed with family, reviewed EMR data (avail), discussed with nursing, discussed with case mgmt, reviewed images, amended to note Attending Assessment/Plan: Also see my additional discharge.
[2016-11-30 11:13] VITALS: BP 100/50
[2016-11-30 12:33] VITALS: BP 120/70
--- NOTE | 2016-11-30 14:16 | PN- Att Addend ---
Attending Addendum Attending Brief Note 86 y/o F with pmh sig for stage I diastolic dysfunction (echo 2014 with LVEF 60- 65%), pulmonary hypertension (RV systolic pressure > 55 mmHg), atrial fibrillation on Eliquis, anxiety, depression, osteoporosis of right shoulder, recent diagnosis of bronchiectasis and pneumonia sputum culture positive for ESBL who was discharged on Augmentin and then admitted again with diarrhea with C. difficile negative. She was discharged home 5 days ago and now coming in with feeling of generalized weakness, fever, shortness of breath with cough as well as diarrhea yesterday. History was partially obtained from the patient and her automatic clipper and stripper. The automatic clipper and stripper claims that she gave her the constipation medicine the day before yesterday. Patient denies any abdominal pain. She does complain of some cough with yellowish sputum. In the emergency room she was febrile to 101 and did have significant leukocytosis. Imaging studies in the emergency room does not show any bowel wall thickening or colitis, he does show cholelithiasis but no evidence of any obstruction or cholecystitis. Patient denies any history of nausea vomiting but off note she had a swallow evaluation done and then they recommended mechanical soft and thickened liquids. Speech therapist also recommended modified barium swallow. Vital Signs Date Time Temp Pulse Resp B/P Pulse O2 O2 Flow FiO2 Ox Delivery Rate 11/30 1233 120/70 11/30 1113 97.8 71 19 100/50 98 11/30 1100 97 Nasal 2.0L Cannula 11/30 1037 99.1 71 20 134/63 100 Nasal 2.5L Cannula 11/30 0844 100.5 11/30 0807 101.2 11/30 0800 101.2 78 30 161/72 97 Nasal 2.0L Cannula 11/30 0755 96 Nasal 2.0L Cannula 11/30 0548 92 11/30 0530 100.5 74 20 164/70 92 Room Air 11/30 0111 73 18 145/67 93 Room Air 11/30 0022 99.4 11/29 2357 99.4 87 22 134/63 93 Room Air 11/29 2059 99.0 84 22 129/71 93 Room Air on exam; aox3, nad. cv; s1,s2, rrr resp; + b/l basal crackles (heard on previous admissions also). abd; soft, nt, bs+ ext; no edema. Laboratory Tests 11/30 11/30 0610 0530 Hematology CBC w Diff MAN DIFF ORDERED WBC (4.8 - 10.8 /CUMM) 21.7 H RBC (4.20 - 5.40 /CUMM) 3.96 L Hgb (12.0 - 16.0 G/DL) 12.6 Hct (37 - 47 %) 37.4 MCV (81.0 - 99.0 FL) 94.6 MCH (27.0 - 31.0 PG) 31.8 H RDW (11.5 - 14.5 %) 14.6 H Plt Count (130 - 400 /CUMM) 253 MPV (7.4 - 10.4 FL) 7.5 Gran % (42.2 - 75.2 %) 91.0 H Lymphocytes % (20.5 - 51.1 %) 5.9 L Monocytes % (1.7 - 9.3 %) 2.9 Eosinophils % (0 - 5 %) 0 Basophils % (0.0 - 2.0 %) 0.2 Absolute Granulocytes (1.4 - 6.5 /CUMM) 19.8 H Segmented Neutrophils (42.2 - 75.2 %) 85 H Band Neutrophils (0.0 - 5.0 %) 7 H Absolute Lymphocytes (1.2 - 3.4 /CUMM) 1.3 Lymphocytes (20.5 - 51.1 %) 5 L Monocytes (1.7 - 9.3 %) 3 Absolute Monocytes (0.10 - 0.60 /CUMM) 0.6 Absolute Eosinophils (0.0 - 0.7 /CUMM) 0 Absolute Basophils (0.0 - 0.2 /CUMM) 0 Platelet Estimate (ADEQUATE) ADEQUATE Normocytic RBCs VERIFIED Normochromic RBCs VERIFIED PUBS MCHC (33.0 - 37.0 G/DL) 33.6 Serology Virus Culture Pending 11/29 2352 Urines Urine Color (YEL,AMB,STR) STRAW Urine Clarity (CLEAR) CLEAR Urine pH (5.0 - 8.0) 6.0 Ur Specific [place] (1.001 - 1.035) 1.010 Urine Protein (NEG,<30 MG/DL) NEG Urine Ketones (NEG) NEG Urine Nitrite (NEG) NEG Urine Bilirubin (NEG) NEG Urine Urobilinogen (0.1 - 1.0 EU/dl) 0.2 Ur Leukocyte Esterase (NEG) NEG Ur Microscopic EXAM NOT REQUIRED Urine Hemoglobin (NEG) NEG Urine Glucose (N MG/DL) NEG 11/30 2119 Chemistry Sodium (137 - 145 mmol/L) 131 L Potassium (3.5 - 5.1 mmol/L) 3.7 Chloride (98 - 107 mmol/L) 96 L Carbon Dioxide (22 - 30 mmol/L) 24 Anion Gap (5 - 16) 11 BUN (7 - 17 mg/dL) 15 Creatinine (0.5 - 1.0 mg/dL) 0.7 Estimated GFR (>60 ml/min) > 60 BUN/Creatinine Ratio (7 - 25 %) 21.4 Glucose (65 - 99 mg/dL) 116 H Lactic Acid (0.7 - 2.1 mmol/L) 1.8 Calcium (8.4 - 10.2 mg/dL) 9.2 Magnesium (1.6 - 2.3 mg/dL) 1.4 L Total Bilirubin (0.2 - 1.3 mg/dL) 0.6 AST (14 - 36 U/L) 39 H ALT (9 - 52 U/L) 41 Alkaline Phosphatase (<127 U/L) 122 Troponin I (< 0.11 ng/ml) < 0.01 Total Protein (6.3 - 8.2 g/dL) 7.2 Albumin (3.5 - 5.0 g/dL) 3.8 Globulin (1.9 - 4.2 gm/dL) 3.4 Albumin/Globulin Ratio (1.1 - 2.2 %) 1.1 Amylase (30 - 110 U/L) 64 Lipase (23 - 300 U/L) 268 Hematology CBC w Diff MAN DIFF ORDERED WBC (4.8 - 10.8 /CUMM) 18.9 H RBC (4.20 - 5.40 /CUMM) 3.80 L Hgb (12.0 - 16.0 G/DL) 13.4 Hct (37 - 47 %) 37.2 MCV (81.0 - 99.0 FL) 98.0 MCH (27.0 - 31.0 PG) 35.2 H RDW (11.5 - 14.5 %) 14.6 H Plt Count (130 - 400 /CUMM) 266 MPV (7.4 - 10.4 FL) 7.9 Gran % (42.2 - 75.2 %) 93.3 H Lymphocytes % (20.5 - 51.1 %) 3.4 L Monocytes % (1.7 - 9.3 %) 3.2 Eosinophils % (0 - 5 %) 0 Basophils % (0.0 - 2.0 %) 0.1 Absolute Granulocytes (1.4 - 6.5 /CUMM) 17.6 H Segmented Neutrophils (42.2 - 75.2 %) 96 H Absolute Lymphocytes (1.2 - 3.4 /CUMM) 0.6 L Lymphocytes (20.5 - 51.1 %) 2 L Monocytes (1.7 - 9.3 %) 2 Absolute Monocytes (0.10 - 0.60 /CUMM) 0.6 Absolute Eosinophils (0.0 - 0.7 /CUMM) 0 Absolute Basophils (0.0 - 0.2 /CUMM) 0 Platelet Estimate (ADEQUATE) VERIFIED BY SMEAR Normocytic RBCs VERIFIED Normochromic RBCs VERIFIED PUBS MCHC (33.0 - 37.0 G/DL) 35.9 Other Body Source Fld Total RBCs Counted (%) 100 EKG>>> sinus rythm. CXR: IMPRESSION: Chronic changes within the bilateral lungs, grossly unchanged relative to the prior exam. No acute pulmonary process. CT abd/pelvis: IMPRESSION: No acute abnormality CT scan abdomen and pelvis. 1. Cholelithiasis. 2. Stable 3.3 cm abdominal aortic aneurysm 3.. No change in the hyperdensity of the liver parenchyma is prior CAT scan 02/10/2015 presumably from prior amiodarone therapy. 4. Multiple compression deformities of the spine most of which are stable since the exam of 09/14/2014. Slight increased compression superior endplate of L1 since prior CAT scan. A/P; 86 y/o F with pmh sig for stage I diastolic dysfunction (echo 2013 with LVEF 60-65%), pulmonary hypertension (RV systolic pressure > 55 mmHg), atrial fibrillation on Eliquis, anxiety, depression, osteoporosis of right shoulder, recent diagnosis of bronchiectasis and pneumonia sputum culture positive for ESBL who is now admitted with fever, leukocytosis, diarrhea and complains of shortness of breath. Patient is meeting SIRS criteria. Patient will be admitted to medicine floor. Please obtain stool for C. difficile, sputum cultures. Hold off on any stool softeners. Gentle IV hydration. Repeat chemistries including lactate. Please obtain pulmonology and infectious disease consult. Patient has an appointment coming up with Dr. Hyatt. At this point will consult him inpatient. Please confirm and continue the rest of the home medications. Patient has received Lovenox today. She is on Eliquis at home. Please resume her Eliquis starting tomorrow. Please replete magnesium. Her urine looks clear. Patient was seen by speech therapist and swallow evaluation showed mechanical soft and thickened liquids. Patient will also get a modified barium swallow. This shows that probably she is someone who kept on aspirating. She might be developing some aspiration pneumonitis/bronchiectasis. DVT px; Eliquis. DNR/I.
--- NOTE | 2016-11-30 14:36 | RADIOLOGY REPORT ---
EXAMINATION: XR MODIFIED BARIUM SWALLOW CLINICAL INFORMATION: Intermittent choking on thin liquids. COMPARISON: None available. TECHNIQUE: Modified barium swallow was performed following the administration of puree, honey, nectar, thin, cracker, and bread barium consistencies. FINDINGS: Significant vallecular pooling and retention was appreciated with puree, honey, and nectar consistency barium. Mild improvement with subsequent dry swallows. With thin barium consistency, there was mariusz aspiration elicited a delayed cough mechanism. Significant residual thin barium within the piriform sinuses and along the posterior pharyngeal wall. With bread and cracker consistencies there was significant vallecular residual the partially cleared with subsequent dry swallows. FLUOROSCOPY TIME: 2 minutes 59 seconds NUMBER OF IMAGES: 19 IMPRESSION: - With thin barium consistency there was aspiration that elicited a delayed cough mechanism. Significant residual within the piriform sinuses and along the posterior pharyngeal wall with thin barium. Please see speech therapy recommendations. - Significant vallecular residual with the remaining barium consistencies tested that partially cleared with subsequent dry swallows.
[2016-11-30 14:50] VITALS: BP 120/72
--- NOTE | 2016-11-30 18:23 | CT SCAN REPORT ---
EXAMINATION: CT CHEST WITHOUT CONTRAST CLINICAL INFORMATION: Intermittent choking and shortness of breath with cough. COMPARISON: CT chest 10/22/2015. TECHNIQUE: Multidetector volumetric CT imaging of the chest was done. Axial MIP volume rendering provided. Sagittal and coronal reformatted images were obtained. DLP: 183 mGy-cm FINDINGS: UMBRELLA TIPPER: Emphysematous lungs. LUNGS: There is diffuse centrilobular emphysematous changes of both lungs. There is a right apical parenchymal large scarring and bronchiectasis which has increase in size from the previous exam. It measures 4.6 x 3.7 cm image 11, series 3. At the same level previously it measured 2.9 x 2.7 cm. There are additional areas of ill-defined patchy opacities with prominent bronchioles left upper lobe superior segment measuring 1.4 x 1.4 cm, previously measuring 1.2 x 1.4 cm, new subpleural density right middle lobe image 28, series 3 measuring 1.11 x 0.62 cm, unchanged linear atelectasis scarring left lower lobe image 30, series 3, right lower lobe consolidation measuring 4.1 cm an pleural-based, new since the previous study. There are additional subpleural density seen in both lower lobes. In addition there is reticular interstitial prominence in both lung bases, right middle lobe and/or lingular segments which are also slightly prominent. MEDIASTINUM: The thyroid lobes are symmetrical. The tracheobronchial tree is widely patent. The heart size is borderline enlarged with coronary artery calcification. The great vessels are normal caliber. No pericardial effusion. No abnormal lymph nodes or hiatal hernia. PLEURA: There is moderate left posterior pleural thickening and minimal right posterior pleural thickening. No pleural effusion seen. AXILLA: No lymphadenopathy. UPPER ABDOMEN: Visualized liver, spleen and pancreas appears unremarkable. A dilated upper abdominal aorta measuring 3.6 x 3.0 cm is noted. OSSEOUS STRUCTURES: There are several compression deformities involving T3 T8 T10, T11 vertebrae which are unchanged to previous study. Degenerative disc changes as seen in the lower dorsal spine. No lytic or sclerotic process seen. IMPRESSION: Diffuse emphysema with chronic interstitial lung changes both prominent in both lung bases, right middle lobe and right lower lobe. There are several ill-defined parenchymal densities most prominent in the right lung apex with bronchiectasis which has increased in size from previous study. Differential diagnoses include progressive scarring or carcinoma. New subpleural density right middle lobe an new right lower lobe consolidation. Underlying inflammatory process is suspected. New left posterior pleural and minimal right posterior pleural thickening but no pleural effusion. No abnormal mediastinal adenopathy seen however limited due to lack of IV contrast. Multiple thoracic vertebral fractures are stable since 10/22/2015.
[2016-11-30 22:53] VITALS: BP 138/70
[2016-12-01 06:30] VITALS: BP 126/70
[2016-12-01 08:24] LABS: ABSOLUTE BASOPHIL COUNT 0 /CUMM (0.0-0.2); ABSOLUTE EOSINOPHIL COUNT 0 /CUMM (0.0-0.7); ABSOLUTE LYMPH COUNT 1.2 /CUMM (1.2-3.4); ABSOLUTE MONOCYTE COUNT 0.9 /CUMM (0.10-0.60); BASOPHIL % 0 % (0.0-2.0); EOSINOPHIL % 0 % (0-5); MEAN PLATELET VOLUME 8.4 FL (7.4-10.4); RBC DISTRIBUTION WIDTH 15.1 % (11.5-14.5)
[2016-12-01 09:29] LABS: ABSOLUTE GRANULOCYTE CT 14.3 /CUMM (1.4-6.5); HEMATOCRIT 32.9 % (37-47); MEAN CORPUSCULAR HGB CONC 36.1 G/DL (33.0-37.0); MEAN CORPUSCULAR VOLUME 98.4 FL (81.0-99.0); PLATELET COUNT 227 /CUMM (130-400); RED BLOOD CELL CT 3.35 /CUMM (4.20-5.40); WHITE BLOOD CELL COUNT 16.4 /CUMM (4.8-10.8)
[2016-12-01 09:43] LABS: MEAN CORPUSCULAR HGB 35.5 PG (27.0-31.0)
--- NOTE | 2016-12-01 09:54 | PN- Housestaff ---
Subjective Follow-up For: Fever, diarrhea Subjective: Patient is morning was lying comfortably in bed and eating her breakfast. Son was present this morning at bedside. Denies any complaints. Denies chest pain, shortness of breath. Had one episode of liquid bowel movement. Spoke to caregiver this morning and according to her patient has been had constipated about 3-4 days ago after which she received medications for to relieve constipation. She was also febrile with a temperature of 101 at home. Review of Systems Constitutional: Reports: see HPI. Objective Last 24 Hrs of Vital Signs/I&O Vital Signs Date Time Temp Pulse Resp B/P Pulse O2 O2 Flow FiO2 Ox Delivery Rate 12/01 1008 88 122/70 12/01 1008 88 122/70 12/01 0800 97 Nasal 2.0L Cannula 12/01 0630 99.4 90 20 126/70 92 Nasal Cannula 12/01 0000 Nasal 2.0L Cannula 11/30 2253 98.3 67 20 138/70 97 Nasal 2.0L Cannula 11/30 2155 126/80 11/30 1846 99.1 11/30 1800 Nasal 2.0L Cannula 11/30 1450 98.2 78 20 120/72 98 11/30 1440 Nasal 2.0L Cannula 11/30 1440 96 Nasal 2.0L Cannula 11/30 1233 120/70 Intake & Output 12/01 1600 12/01 0800 12/01 0000 Intake Total 610 800 Output Total 200 850 Balance 410 -50 Intake, IV 250 800 Intake, Oral 360 Number 0 Bowel Movements Output, Urine 200 850 Physical Exam General Appearance: Alert, Oriented X3, Cooperative, No Acute Distress Skin: No Rashes HEENT: Mucous Membr. moist/pink Cardiovascular: Regular Rate, Normal S1, Normal S2, No Murmurs Lungs: Clear to Auscultation, Normal Air Movement Abdomen: Normal Bowel Sounds, Soft, No Tenderness Extremities: No Clubbing, No Cyanosis, No Edema Current Medications: Current Medications Sig/Letty Start time Last Medication Dose Route Stop Time Status Admin Acetaminophen 650 MG Q6P PRN 11/30 1030 AC 12/01 PO 1019 Acetaminophen 1,000 MG Q6P PRN 11/30 1030 AC IV Albuterol Sulfate 3 ML Q4P PRN 11/30 1500 AC INH Amiodarone HCl 200 MG DAILY 12/01 1000 AC 12/01 PO 1008 Apixaban 2.5 MG BID 12/01 1000 AC 12/01 PO 1008 Aripiprazole 5 MG DAILY 12/01 1000 DC PO Aripiprazole 5 MG DAILY 11/30 1915 AC 12/01 PO 1007 Duloxetine HCl 90 MG DAILY 12/01 1000 DC PO Duloxetine HCl 90 MG DAILY 12/01 1000 AC 12/01 PO 1008 Enoxaparin Sodium 30 MG DAILY 11/30 1045 DC 11/30 SC 1212 Guaifenesin 600 MG Q12 11/30 1248 AC 12/01 PO 1008 Lorazepam 1 MG ONCE ONE 11/30 2200 DC 11/30 IV 11/30 2201 2211 Magnesium Sulfate 1 GM Q2H 11/30 1300 DC 11/30 Dextrose/Water 100 ML IV 11/30 1659 1846 Metoprolol Tartrate 12.5 MG BID 11/30 2200 AC 12/01 PO 1008 Omeprazole 40 MG DAILY AC 11/30 1243 AC 12/01 PO 0555 Oxycodone/ 2 TAB Q6P PRN 11/30 1030 DC Acetaminophen PO Patient Medication 1 UNIT 1000 12/01 1000 OH Teaching ED 12/01 1001 Patient Medication 1 UNIT ONE NR 11/30 1045 OH Teaching ED 11/30 1645 Potassium Chloride 20 MEQ Q1 12/01 1000 DC PO 12/01 1101 Potassium Chloride 40 MEQ ONCE ONE 12/01 0700 DC 12/01 PO 12/01 0701 1007 Potassium Chloride 10 MEQ Q1H 11/30 2145 DC 12/01 IV 11/30 2246 0052 Sodium Chloride 500 ML .Q6H40M 11/30 1245 DC 11/30 IV 11/30 1813 1300 Sodium Chloride 1,000 ML BOLUS ONE 11/30 1200 DC 11/30 IV 11/30 1359 1213 Valacyclovir HCl 500 MG AT BEDTIME 11/30 2200 AC 11/30 PO 2154 Last 24 Hrs of Lab/Maxim Results Last 24 Hrs of Labs/Mics: Laboratory Tests 12/01/16 0635: Anion Gap 7, Estimated GFR > 60, BUN/Creatinine Ratio 16.7, Magnesium 2.1, CBC w Diff NO MAN DIFF REQ, RBC 3.35 L, MCV 98.4, MCH 35.5 H, RDW 15.1 H, MPV 8.4, Gran % 87.3 H, Lymphocytes % 7.1 L, Monocytes % 5.6, Eosinophils % 0, Basophils % 0 L, Absolute Granulocytes 14.3 H, Absolute Lymphocytes 1.2, Absolute Monocytes 0.9 H, Absolute Eosinophils 0, Absolute Basophils 0, PUBS MCHC 36.1 11/30/16 1826: Anion Gap 10, Estimated GFR > 60, BUN/Creatinine Ratio 16.7, Lactic Acid 1.8 Microbiology 12/01 0800 STOOL: Clostridium difficile Toxin A & B - RECD 11/30 145 LOWER RESP: Respiratory Culture - COLB 11/30 1453 LOWER RESP: Gram Stain - COLB Assessment/Plan Assessment: 86-year-old female with past medical history of atrial fibrillation on anticoagulation, diastolic heart failure, ESBL, anxiety, depression, osteoporosis presents to the ED with complaints of diarrhea and generalized weakness. She is at a high risk of C. difficile given prior hospitalization and recent antibiotic use along with previous history of C. difficile. 1. Weakness/diarrhea secondary to questionable C. difficile infection - As mentioned she is a high risk for C. difficile infection - Pending. If negative will send for C. difficile PCR as per ID recommendation -White count improving compared to yesterday. - MAXIMUM TEMPERATURE of 100.5 - Continue to follow off of antibiotics for now Problem List: 1. Leukocytosis 2. Diarrhea Pain Ratin Pain Location: neck Pain Goal: Remain pain free Pain Plan: As mentioned Tomorrow's Labs & Rationales: Will need labs
[2016-12-01 10:04] LABS: GRANULOCYTE % 87.3 % (42.2-75.2)
--- NOTE | 2016-12-01 10:36 | PN- Att Addend ---
Attending Addendum Attending Brief Note Patient seen and examined, was sleepy this morning. Patient had received Ativan last night as she was getting agitated. She hasn't had any further high-grade fevers and her white blood cell count has improved since yesterday. Stool has been sent for cdiff. Vital Signs Date Time Temp Pulse Resp B/P Pulse O2 O2 Flow FiO2 Ox Delivery Rate 12/01 1008 88 122/70 12/01 1008 88 122/70 12/01 0630 99.4 90 20 126/70 92 Nasal Cannula 12/01 0000 Nasal 2.0L Cannula 11/30 2253 98.3 67 20 138/70 97 Nasal 2.0L Cannula 11/30 2155 126/80 11/30 1846 99.1 11/30 1800 Nasal 2.0L Cannula 11/30 1450 98.2 78 20 120/72 98 11/30 1440 Nasal 2.0L Cannula 11/30 1440 96 Nasal 2.0L Cannula 11/30 1233 120/70 11/30 1113 97.8 71 19 100/50 98 11/30 1100 97 Nasal 2.0L Cannula 11/30 1037 99.1 71 20 134/63 100 Nasal 2.5L Cannula on exam; sleepy but arousable cv; s1, s2, rrr resp; mild b/l basal crackles. abd; soft, nt, bs+ ext; no edema. Laboratory Tests 12/01 11/30 0635 1826 Chemistry Sodium (137 - 145 mmol/L) 132 L 132 L Potassium (3.5 - 5.1 mmol/L) 3.2 L 3.0 L Chloride (98 - 107 mmol/L) 99 99 Carbon Dioxide (22 - 30 mmol/L) 25 24 Anion Gap (5 - 16) 7 10 BUN (7 - 17 mg/dL) 10 10 Creatinine (0.5 - 1.0 mg/dL) 0.6 0.6 Estimated GFR (>60 ml/min) > 60 > 60 BUN/Creatinine Ratio (7 - 25 %) 16.7 16.7 Lactic Acid (0.7 - 2.1 mmol/L) 1.8 Magnesium (1.6 - 2.3 mg/dL) 2.1 Hematology CBC w Diff NO MAN DIFF REQ WBC (4.8 - 10.8 /CUMM) 16.4 H RBC (4.20 - 5.40 /CUMM) 3.35 L Hgb (12.0 - 16.0 G/DL) 11.9 L Hct (37 - 47 %) 32.9 L MCV (81.0 - 99.0 FL) 98.4 MCH (27.0 - 31.0 PG) 35.5 H RDW (11.5 - 14.5 %) 15.1 H Plt Count (130 - 400 /CUMM) 227 MPV (7.4 - 10.4 FL) 8.4 Gran % (42.2 - 75.2 %) 87.3 H Lymphocytes % (20.5 - 51.1 %) 7.1 L Monocytes % (1.7 - 9.3 %) 5.6 Eosinophils % (0 - 5 %) 0 Basophils % (0.0 - 2.0 %) 0 L Absolute Granulocytes (1.4 - 6.5 /CUMM) 14.3 H Absolute Lymphocytes (1.2 - 3.4 /CUMM) 1.2 Absolute Monocytes (0.10 - 0.60 /CUMM) 0.9 H Absolute Eosinophils (0.0 - 0.7 /CUMM) 0 Absolute Basophils (0.0 - 0.2 /CUMM) 0 PUBS MCHC (33.0 - 37.0 G/DL) 36.1 A/P; 86 y/o F with pmh sig for stage I diastolic dysfunction (echo 2013 with LVEF 60-65%), pulmonary hypertension (RV systolic pressure > 55 mmHg), atrial fibrillation on Eliquis, anxiety, depression, osteoporosis of right shoulder, recent diagnosis of bronchiectasis and pneumonia sputum culture positive for ESBL who is now admitted with fever, leukocytosis, diarrhea and complains of shortness of breath. Patient met SIRS criteria. Stool has been sent for C. difficile. So far other cultures are negative. As mentioned before, patient is aspiration risk. Please order aspiration precautions. Currently she is on mechanical soft diet and nectar thick liquids. We did not start any antibiotics yesterday as there was no obvious source of infection. We'll follow-up on all the cultures and follow-up on infectious disease consult. Discussed with Dr. Hyatt. He recommends aspiration precautions and conservative management. Please avoid all the benzos. Patient received Ativan last night and this morning she is sleepy. Patient should not be using any benzodiazepines. Continue all other current medications and please order PT evaluation. DVT px: Christel.
--- NOTE | 2016-12-01 10:41 | Cons- Pulmonary ---
General Information and HPI Consulting Request Date of Consult: 12/01/16 Requested By: Dr. Mooney Reason for Consult: aspiration pna Source of Information: patient Exam Limitations: no limitations History of Present Illness: 86 year old woman. Consultation for bronchiectasis and hypoxemia in the setting of aspiration. 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 Now with ?aspiration admission, barium swallow with delayed cough mechanism, barium consistency showed aspiration. Recently completed Augmentin. CT chest: Diffuse emphysema with chronic interstitial lung changes both prominent in both lung bases, right middle lobe and right lower lobe. There are several ill- defined parenchymal densities most prominent in the right lung apex with bronchiectasis which has increased in size from previous study. New subpleural density right middle lobe an new right lower lobe consolidation. Underlying inflammatory process is suspected. New left posterior pleural and minimal right posterior pleural thickening but no pleural effusion. No abnormal mediastinal adenopathy seen however limited due to lack of IV contrast. Has had teeth pulled out in May and has had excessive salivation with globus formation and reported aspiration. It has improved, but throughout past few months this has been an issue. Currently no dyspnea at rest, only with exertion. No CP, no fevers, no chills, no nvdc. Leukocytosis max 21.7, currently 16.4. Allergies/Medications Allergies: Coded Allergies: Iodinated Contrast Media - Oral and (IODINATED CONTRAST MEDIA - IV DYE) (Severe, HEART STOPPED 11/23/16) morphine (Severe, COLLAPSE 11/23/16) Home Med List: Amiodarone HCl 200 MG TABLET 1 TAB PO DAILY AFIB (Reported) Apixaban (Eliquis) 2.5 MG TABLET 1 TAB PO BID BLOOD THINNER (Reported) Aripiprazole (Abilify) 5 MG TABLET 1 TAB PO DAILY ANXIETY (Reported) Bumetanide 0.5 MG TABLET 1 TAB PO DAILY WATER PILL (Reported) Docusate Sodium (Colace) 100 MG CAPSULE 1 CAP PO DAILY STOOL SOFTENER ( Reported) Duloxetine Hydrochloride (Cymbalta) 30 MG CAPSULE.DR 90 MG PO DAILY MENTAL HEALTH (Reported) Hydrocodone/Acetaminophen (Hydrocodon-Acetaminoph 7.5-300) 7.5 MG-300 MG TABLET 1 TAB PO Q8P PRN PAIN (Reported) Metoprolol Tartrate 25 MG TABLET 0.5 TAB PO BID HEART (Reported) Naloxegol Oxalate (Movantik) 25 MG TABLET 1 TAB PO DAILY CONSTIPATION ( Reported) Pantoprazole Sodium (Protonix) 40 MG TABLET.DR 1 TAB PO DAILY ACID REFLUX ( Reported) Valacyclovir Hydrochloride (Valtrex) 500 MG TABLET 1 TAB PO AT BEDTIME SHINGLES PREVENTION (Reported) Current Medications: Current Medications Sig/Letty Start time Last Medication Dose Route Stop Time Status Admin Acetaminophen 650 MG Q6P PRN 11/30 1030 AC 12/01 PO 1019 Acetaminophen 1,000 MG Q6P PRN 11/30 1030 AC IV Albuterol Sulfate 3 ML Q4P PRN 11/30 1500 AC INH Amiodarone HCl 200 MG DAILY 12/01 1000 AC 12/01 PO 1008 Apixaban 2.5 MG BID 12/01 1000 AC 12/01 PO 1008 Aripiprazole 5 MG DAILY 12/01 1000 DC PO Aripiprazole 5 MG DAILY 11/30 1915 AC 12/01 PO 1007 Duloxetine HCl 90 MG DAILY 12/01 1000 DC PO Duloxetine HCl 90 MG DAILY 12/01 1000 AC 12/01 PO 1008 Enoxaparin Sodium 30 MG DAILY 12/01 1000 DC SC Enoxaparin Sodium 30 MG DAILY 11/30 1045 DC 11/30 SC 1212 Guaifenesin 600 MG Q12 11/30 1248 AC 12/01 PO 1008 Lorazepam 1 MG ONCE ONE 11/30 2200 DC 11/30 IV 11/30 2201 2211 Magnesium Sulfate 1 GM Q2H 11/30 1300 DC 11/30 Dextrose/Water 100 ML IV 11/30 1659 1846 Metoprolol Tartrate 12.5 MG BID 11/30 2200 AC 12/01 PO 1008 Omeprazole 40 MG DAILY AC 11/30 1243 AC 12/01 PO 0555 Oxycodone/ 2 TAB Q6P PRN 11/30 1030 DC Acetaminophen PO Patient Medication 1 UNIT 1000 / 1000 DC Teaching ED 12/01 1001 Patient Medication 1 UNIT ONE NR 11/30 1045 HI Teaching ED 11/30 1645 Potassium Chloride 20 MEQ Q1 12/01 1000 AC PO 12/01 1101 Potassium Chloride 40 MEQ ONCE ONE 12/01 0700 DC 12/01 PO 12/01 0701 1007 Potassium Chloride 10 MEQ Q1H 11/30 2145 DC 12/01 IV 11/30 2246 0052 Sodium Chloride 500 ML .Q6H40M 11/30 1245 DC 11/30 IV 11/30 1813 1300 Sodium Chloride 1,000 ML BOLUS ONE 11/30 1200 DC 11/30 IV 11/30 1359 1213 Valacyclovir HCl 500 MG AT BEDTIME 11/30 2200 AC 11/30 PO 2154 Review of Systems Comments 18 point Review of Systems performed. Positive and negative pertinent findings are deliniated in the HPI. Otherwise the ROS is negative. Past History Travel History Traveled to [place] past 21 day No Medical History Neurological: NONE EENT: NONE Cardiovascular: AFIB, CHF, hypertension, ANGIOPLASTY Respiratory: pneumonia Gastrointestinal: GERD Hepatic: NONE Renal: NONE Musculoskeletal: CHRONIC RIGHT SHOULDER PAIN, DEFORMITY, HISTORY OF HUMERUS FRACTURE Psychiatric: chronic pain disorder, depression Blood Disorders: NONE Cancer(s): NONE Other Medical Hx: Shingles Surgical History Surgical History: ANGIOPLASTY R ARM SURGERY right shoulder surgery Family History Relations & Conditions If Any: MOTHER FH: CAD (coronary artery disease) FATHER FH: CAD (coronary artery disease) Psychosocial History 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 Needs Assist: toileting, bathing. Ambulation: walker IADLs Independent: telephone. Needs Assist: shopping, housework, finances, food prep, transportation, medication admin. Exam & Diagnostic Data Last 24 Hrs of Vital Signs/I&O Vital Signs Date Time Temp Pulse Resp B/P Pulse O2 O2 Flow FiO2 Ox Delivery Rate 12/01 1008 88 122/70 12/01 1008 88 122/70 12/01 0630 99.4 90 20 126/70 92 Nasal Cannula 12/01 0000 Nasal 2.0L Cannula 11/30 2253 98.3 67 20 138/70 97 Nasal 2.0L Cannula 11/30 2155 126/80 11/30 1846 99.1 11/30 1800 Nasal 2.0L Cannula 11/30 1450 98.2 78 20 120/72 98 11/30 1440 Nasal 2.0L Cannula 11/30 1440 96 Nasal 2.0L Cannula 04/04 1233 120/70 11/30 1113 97.8 71 19 100/50 98 11/30 1100 97 Nasal 2.0L Cannula 11/30 1037 99.1 71 20 134/63 100 Nasal 2.5L Cannula Intake & Output 12/01 1600 12/01 0800 12/01 0000 Intake Total 610 800 Output Total 200 850 Balance 410 -50 Intake, IV 250 800 Intake, Oral 360 Number 0 Bowel Movements Output, Urine 200 850 Physical Exam Other Physical Findings: General - Alert, awake and oriented HEENT - normocephalic, atraumatic Cardiovascular - S1, S2 Lungs - rare rhonchi Abdomen - soft, bowel sounds positive, no tenderness Extremities - without edema or cyanosis Last 48 Hrs of Labs/Maxim: Laboratory Tests 12/01/16 0635: Anion Gap 7, Estimated GFR > 60, BUN/Creatinine Ratio 16.7, Magnesium 2.1, CBC w Diff NO MAN DIFF REQ, RBC 3.35 L, MCV 98.4, MCH 35.5 H, RDW 15.1 H, MPV 8.4, Gran % 87.3 H, Lymphocytes % 7.1 L, Monocytes % 5.6, Eosinophils % 0, Basophils % 0 L, Absolute Granulocytes 14.3 H, Absolute Lymphocytes 1.2, Absolute Monocytes 0.9 H, Absolute Eosinophils 0, Absolute Basophils 0, PUBS MCHC 36.1 11/30/16 1826: Anion Gap 10, Estimated GFR > 60, BUN/Creatinine Ratio 16.7, Lactic Acid 1.8 11/30/16 0610: CBC w Diff MAN DIFF ORDERED, RBC 3.96 L, MCV 94.6, MCH 31.8 H, RDW 14.6 H, MPV 7.5, Gran % 91.0 H, Lymphocytes % 5.9 L, Monocytes % 2.9, Eosinophils % 0, Basophils % 0.2, Absolute Granulocytes 19.8 H, Segmented Neutrophils 85 H, Band Neutrophils 7 H, Absolute Lymphocytes 1.3, Lymphocytes 5 L, Monocytes 3, Absolute Monocytes 0.6, Absolute Eosinophils 0, Absolute Basophils 0, Platelet Estimate ADEQUATE, Normocytic RBCs VERIFIED, Normochromic RBCs VERIFIED, PUBS MCHC 33.6 11/30/16 0530: Virus Culture Pending 11/29/16 5472: Urine Color STRAW, Urine Clarity CLEAR, Urine pH 6.0, Ur Specific [place] 1.010, Urine Protein NEG, Urine Ketones NEG, Urine Nitrite NEG, Urine Bilirubin NEG, Urine Urobilinogen 0.2, Ur Leukocyte Esterase NEG, Ur Microscopic EXAM NOT REQUIRED, Urine Hemoglobin NEG, Urine Glucose NEG 11/29/162119: Anion Gap 11, Estimated GFR > 60, BUN/Creatinine Ratio 21.4, Glucose 116 H, Lactic Acid 1.8, Calcium 9.2, Magnesium 1.4 L, Total Bilirubin 0.6, AST 39 H, ALT 41, Alkaline Phosphatase 122, Troponin I < 0.01, Total Protein 7.2, Albumin 3.8, Globulin 3.4, Albumin/Globulin Ratio 1.1, Amylase 64, Lipase 268, CBC w Diff MAN DIFF ORDERED, RBC 3.80 L, MCV 98.0, MCH 35.2 H, RDW 14.6 H, MPV 7.9, Gran % 93.3 H, Lymphocytes % 3.4 L, Monocytes % 3.2, Eosinophils % 0, Basophils % 0.1, Absolute Granulocytes 17.6 H, Segmented Neutrophils 96 H, Absolute Lymphocytes 0.6 L, Lymphocytes 2 L, Monocytes 2, Absolute Monocytes 0.6, Absolute Eosinophils 0, Absolute Basophils 0, Platelet Estimate VERIFIED BY SMEAR, Normocytic RBCs VERIFIED, Normochromic RBCs VERIFIED, PUBS MCHC 35.9, Fld Total RBCs Counted 100 Microbiology 11/30 0537 NASOPHARYN: Influenza Virus A & B Rapid Smear - COMP 11/29 2352 URINE ROUT: Urine Culture - COMP Assessment/Plan Impression/Plan: 86 year old woman. Consultation for bronchiectasis and hypoxemia in the setting of aspiration. 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 Now with ?aspiration admission, barium swallow with delayed cough mechanism, barium consistency showed aspiration. Recently completed Augmentin. CT chest: Diffuse emphysema with chronic interstitial lung changes both prominent in both lung bases, right middle lobe and right lower lobe. There are several ill- defined parenchymal densities most prominent in the right lung apex with bronchiectasis which has increased in size from previous study. New subpleural density right middle lobe an new right lower lobe consolidation. Underlying inflammatory process is suspected. New left posterior pleural and minimal right posterior pleural thickening but no pleural effusion. No abnormal mediastinal adenopathy seen however limited due to lack of IV contrast. Has had teeth pulled out in May and has had excessive salivation with globus formation and reported aspiration. It has improved, but throughout past few months this has been an issue. Currently no dyspnea at rest, only with exertion. No CP, no fevers, no chills, no nvdc. Leukocytosis max 21.7, currently 16.4. Plan - aspiration precautions - head of bed elevated to 30 degrees - abx per primary team, per team Dr. Randolph's input will be sought - pfts as outpt, repeat imaging - o2 checks to determine future o2 needs - sputum cx - on eliquis for a.fib DVT prophylaxis at all times Consult Acknowledgment - Thank you for your consult request.
--- NOTE | 2016-12-01 11:39 | Cons- Infect Disease ---
General Information and HPI Consulting Request Date of Consult: 12/01/16 Requested By: LISA MENJIVAR MD Reason for Consult: Fever/leukocytosis Source of Information: patient, old records History of Present Illness: This is an 86-year-old woman with a history of atrial fibrillation, maintained on Eliquis, diastolic dysfunction, herpes zoster encephalitis and recurrent shingles, maintained on daily Valtrex, hospitalized twice in the past 2 weeks, initially for what was felt to be aspiration pneumonia, with sputum culture positive for ESBL producing Escherichia coli, treated with Augmentin for 1 week, and, more recently, for diarrhea, with C. difficile negative, with temperatures and white blood cell count normal on both admissions, readmitted on November 30 with recurrent diarrhea, weakness and fatigue. On admission she was initially afebrile but developed a fever to 101.2 by the next morning. Laboratory data revealed a white blood cell count of 19,000, BUN/creatinine 15 and 0.7, sodium 131, with normal liver enzymes. Urinalysis negative. Chest x-ray revealed no acute process. CT of the abdomen and pelvis revealed cholelithiasis, a stable 3.3 cm abdominal aortic aneurysm and multiple stable compression deformities of the spine. She was followed off antibiotics. She has been afebrile for the past 24 hours and her white blood cell count, after increasing to 22,000 with 7 bands on November 30, has decreased today. She has had some soft and liquidy stools reported. She does report pain in the back of her neck but denies nausea, vomiting, abdominal pain, dysuria, cough, chest pain or shortness of breath. Allergies/Medications Allergies: Coded Allergies: Iodinated Contrast Media - Oral and (IODINATED CONTRAST MEDIA - IV DYE) (Severe, HEART STOPPED 11/23/16) morphine (Severe, COLLAPSE 11/23/16) Home Med List: Amiodarone HCl 200 MG TABLET 1 TAB PO DAILY AFIB (Reported) Apixaban (Eliquis) 2.5 MG TABLET 1 TAB PO BID BLOOD THINNER (Reported) Aripiprazole (Abilify) 5 MG TABLET 1 TAB PO DAILY ANXIETY (Reported) Bumetanide 0.5 MG TABLET 1 TAB PO DAILY WATER PILL (Reported) Docusate Sodium (Colace) 100 MG CAPSULE 1 CAP PO DAILY STOOL SOFTENER ( Reported) Duloxetine Hydrochloride (Cymbalta) 30 MG CAPSULE.DR 90 MG PO DAILY MENTAL HEALTH (Reported) Hydrocodone/Acetaminophen (Hydrocodon-Acetaminoph 7.5-300) 7.5 MG-300 MG TABLET 1 TAB PO Q8P PRN PAIN (Reported) Metoprolol Tartrate 25 MG TABLET 0.5 TAB PO BID HEART (Reported) Naloxegol Oxalate (Movantik) 25 MG TABLET 1 TAB PO DAILY CONSTIPATION ( Reported) Pantoprazole Sodium (Protonix) 40 MG TABLET. 1 TAB PO DAILY ACID REFLUX ( Reported) Valacyclovir Hydrochloride (Valtrex) 500 MG TABLET 1 TAB PO AT BEDTIME SHINGLES PREVENTION (Reported) Past History Travel History Traveled to [place] past 21 day No Medical History Neurological: NONE EENT: NONE Cardiovascular: AFIB, CHF, hypertension, ANGIOPLASTY Respiratory: pneumonia Gastrointestinal: GERD Hepatic: NONE Renal: NONE Musculoskeletal: osteoporosis, CHRONIC RIGHT SHOULDER DEFORMITY, HISTORY OF RIGHT HUMERUS FRACTURE Psychiatric: chronic pain disorder, depression Blood Disorders: PE Cancer(s): NONE Other Medical Hx: Shingles History of MRSA: No History of VRE: No History of CDIFF: No Isolation History: Contact Influenza Vaccine: 06/29/16 Surgical History Surgical History: ANGIOPLASTY right lower extremity right shoulder surgery Family History Relations & Conditions If Any: MOTHER FH: CAD (coronary artery disease) FATHER FH: CAD (coronary artery disease) Psychosocial History 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 Needs Assist: toileting, bathing. Ambulation: walker IADLs Independent: telephone. Needs Assist: shopping, housework, finances, food prep, transportation, medication admin. Review of Systems Review of Systems All Other Systems: Reviewed and Negative Exam & Diagnostic Data Last 24 Hrs of Vital Signs/I&O Vital Signs Date Time Temp Pulse Resp B/P Pulse O2 O2 Flow FiO2 Ox Delivery Rate 12/01 1008 88 122/70 12/01 1008 88 122/70 12/01 0800 97 Nasal 2.0L Cannula 12/01 0630 99.4 90 20 126/70 92 Nasal Cannula 12/01 0000 Nasal 2.0L Cannula 11/30 2253 98.3 67 20 138/70 97 Nasal 2.0L Cannula 11/30 2155 126/80 11/30 1846 99.1 11/30 1800 Nasal 2.0L Cannula 11/30 1450 98.2 78 20 120/72 98 11/30 1440 Nasal 2.0L Cannula 11/30 1440 96 Nasal 2.0L Cannula 11/30 1233 120/70 Intake & Output 12/01 1600 12/01 0800 12/01 0000 Intake Total 610 800 Output Total 200 850 Balance 410 -50 Intake, IV 250 800 Intake, Oral 360 Number 0 Bowel Movements Output, Urine 200 850 Physical Exam Other Physical Findings: She is awake and alert, weak and chronically ill appearing, but in no acute distress. She is afebrile. Skin reveals no rash. HEENT exam is negative. Neck is supple with no adenopathy. Lungs are clear. Heart irregular rhythm with no murmur. Abdomen is soft, tender on palpation over the epigastrium, with no guarding or rebound, and with positive bowel sounds. Back no CVA tenderness. Extremities no cyanosis, clubbing or edema. Neuro is without focality. Last 24 Hours of Lab Results: Laboratory Tests 12/01 11/30 0635 1826 Chemistry Sodium (137 - 145 mmol/L) 132 L 132 L Potassium (3.5 - 5.1 mmol/L) 3.2 L 3.0 L Chloride (98 - 107 mmol/L) 99 99 Carbon Dioxide (22 - 30 mmol/L) 25 24 Anion Gap (5 - 16) 7 10 BUN (7 - 17 mg/dL) 10 10 Creatinine (0.5 - 1.0 mg/dL) 0.6 0.6 Estimated GFR (>60 ml/min) > 60 > 60 BUN/Creatinine Ratio (7 - 25 %) 16.7 16.7 Lactic Acid (0.7 - 2.1 mmol/L) 1.8 Magnesium (1.6 - 2.3 mg/dL) 2.1 Hematology CBC w Diff NO MAN DIFF REQ WBC (4.8 - 10.8 /CUMM) 16.4 H RBC (4.20 - 5.40 /CUMM) 3.35 L Hgb (12.0 - 16.0 G/DL) 11.9 L Hct (37 - 47 %) 32.9 L MCV (81.0 - 99.0 FL) 98.4 MCH (27.0 - 31.0 PG) 35.5 H RDW (11.5 - 14.5 %) 15.1 H Plt Count (130 - 400 /CUMM) 227 MPV (7.4 - 10.4 FL) 8.4 Gran % (42.2 - 75.2 %) 87.3 H Lymphocytes % (20.5 - 51.1 %) 7.1 L Monocytes % (1.7 - 9.3 %) 5.6 Eosinophils % (0 - 5 %) 0 Basophils % (0.0 - 2.0 %) 0 L Absolute Granulocytes (1.4 - 6.5 /CUMM) 14.3 H Absolute Lymphocytes (1.2 - 3.4 /CUMM) 1.2 Absolute Monocytes (0.10 - 0.60 /CUMM) 0.9 H Absolute Eosinophils (0.0 - 0.7 /CUMM) 0 Absolute Basophils (0.0 - 0.2 /CUMM) 0 PUBS MCHC (33.0 - 37.0 G/DL) 36.1 Last 24 Hours of Maxim Results: Blood cultures November 29 negative Urine culture November 29 negative Rapid flu swab November 30 negative Stool C. difficile December 01 pending Diagnostic Data Recent Imaging Findings: Chest x-ray November 29, personally reviewed, reveals no acute process. CT of the abdomen and pelvis November 29 reveals cholelithiasis, a stable 3.3 cm abdominal aortic aneurysm and multiple stable compression deformities of the spine. Modified swallow November 30 reveals significant vallecular pooling and retention with pure, honey and nectar consistency barium; mariusz aspiration with thin barium consistency, with significant residual within the sinuses and along the posterior pharyngeal wall with thin barium CT of the chest November 30 reveals diffuse emphysema with chronic interstitial lung changes, several ill-defined parenchymal densities, most prominent in the right lung apex, with bronchiectasis, increased in size from previous studies; new subpleural density in the right middle lobe and new pleural-based density in the right lower lobe; no pleural effusions Assessment/Plan Assessment/Plan Impression: This is an 86-year-old woman with a history of atrial fibrillation and diastolic dysfunction, hospitalized 2 weeks prior to admission with pneumonia, with ESBL producing Escherichia coli isolated from the sputum, treated with 1 week of Augmentin, readmitted 1 week prior to admission with diarrhea, with C. difficile negative, now admitted on November 29 with diarrhea, weakness and fatigue, found to be febrile with a leukocytosis, which has improved today, with source unclear. Possible sources of infection include C. difficile, with her recent antibiotics, though there is no evidence of colitis on CT, cholecystitis, with mild epigastric tenderness in the setting of cholelithiasis, though there were no biliary abnormalities on the recent CT scan, or pneumonia, possibly aspiration, given her modified barium swallow findings and CT chest findings, though her respiratory status appears to be stable. Suggestion: 1. Follow-up stool for C. difficile 2. Send stool for PCR for C. difficile if toxin test is negative and diarrhea persists 3. Sputum for culture 4. Consider right upper quadrant ultrasound if C. difficile is negative 5. Aspiration precautions 6. If stool C. difficile is positive would begin Vancomycin 125 mg po every 6 hours Consult Acknowledgment - Thank you for your consult request.
[2016-12-01 14:53] VITALS: BP 134/60
[2016-12-01 22:28] VITALS: BP 122/64
[2016-12-02 07:32] VITALS: BP 120/64
--- NOTE | 2016-12-02 08:14 | PN- Housestaff ---
FLOYD HENDRICKS,LEIGHTON 12/02/16 0814: Subjective Follow-up For: Weakness, fever Subjective: Patient comfortably lying on bed. Able to answer questions appropriately. Does not remember about her previous admission. Has history of dementia. No overnight events noted. MAXIMUM TEMPERATURE has been 99.4. Review of Systems Constitutional: Reports: see HPI. Objective Last 24 Hrs of Vital Signs/I&O Vital Signs Date Time Temp Pulse Resp B/P Pulse O2 O2 Flow FiO2 Ox Delivery Rate 12/02 1350 95 Nasal 2.0L Cannula 12/02 1131 80 150/80 12/02 1130 80 150/80 12/02 0800 94 Nasal 2.0L Cannula 12/02 0732 98.1 74 18 120/64 94 Nasal Cannula 12/02 0000 Nasal 2.0L Cannula 12/01 2228 98.2 76 18 122/64 95 12/01 2103 95 Nasal 2.0L Cannula 12/01 1600 Nasal 2.0L Cannula 12/01 1453 98.4 69 20 134/60 95 Intake & Output 12/02 1600 12/02 0800 12/02 0000 Intake Total 0 600 Output Total 200 1 Balance -200 599 Intake, Oral 0 600 Number 3 Bowel Movements Output, Stool 1 Output, Urine 200 Physical Exam General Appearance: Alert, Oriented X3, Cooperative, No Acute Distress Skin: No Rashes HEENT: Mucous Membr. moist/pink Neck: Supple, No JVD Cardiovascular: Regular Rate, Normal S1, Normal S2, No Murmurs Lungs: Clear to Auscultation, bilateral basal crackles present Abdomen: Normal Bowel Sounds, Soft, No Tenderness Extremities: No Clubbing, No Cyanosis, No Edema Current Medications: Current Medications Sig/Letty Start time Last Medication Dose Route Stop Time Status Admin Acetaminophen 650 MG .STK-MED ONE 12/01 1925 DC PO 12/01 192 Acetaminophen 650 MG Q6P PRN 11/30 1030 AC 12/01 PO 1930 Acetaminophen 1,000 MG Q6P PRN 11/30 1030 AC IV Albuterol Sulfate 3 ML Q4P PRN 11/30 1500 AC INH Amiodarone HCl 200 MG DAILY 12/01 1000 AC 12/02 PO 1131 Apixaban 2.5 MG BID 12/01 1000 AC 12/02 PO 1126 Aripiprazole 5 MG DAILY 11/30 1915 AC 12/02 PO 1126 Duloxetine HCl 90 MG DAILY 12/01 1000 AC 12/02 PO 1126 Guaifenesin 600 MG Q12 11/30 1248 AC 12/02 PO 1126 Lorazepam 1 MG ONCE ONE 12/01 2244 DC 12/01 IV 12/01 Metoprolol Tartrate 12.5 MG BID 11/30 220 AC 12/02 PO 1130 Omeprazole 40 MG DAILY AC 11/30 1243 AC 12/01 PO 0555 Valacyclovir HCl 500 MG AT BEDTIME 11/30 2199 AC 12/01 PO 2045 Last 24 Hrs of Lab/Maxim Results Last 24 Hrs of Labs/Mics: Laboratory Tests 12/02/16 0815: Anion Gap 5, Estimated GFR > 60, BUN/Creatinine Ratio 21.7, CBC w Diff NO MAN DIFF REQ, RBC 3.68 L, MCV 97.6, MCH 34.0 H, RDW 15.0 H, MPV 8.0, Gran % 85.8 H, Lymphocytes % 8.2 L, Monocytes % 5.9, Eosinophils % 0.1, Basophils % 0 L, Absolute Granulocytes 10.1 H, Absolute Lymphocytes 1.0 L, Absolute Monocytes 0.7 H, Absolute Eosinophils 0, Absolute Basophils 0, PUBS MCHC 34.9 Assessment/Plan Assessment: 86-year-old female with past medical history of atrial fibrillation on anticoagulation, diastolic heart failure, ESBL, anxiety, depression, osteoporosis presents to the ED with complaints of diarrhea and generalized weakness. She is at a high risk of C. difficile given prior hospitalization and recent antibiotic use along with previous history of C. difficile. 1. Weakness/diarrhea secondary to questionable C. difficile infection -C. difficile negative. - He does PCR was sent out yesterday results pending. -White count improving compared to yesterday and she has been afebrile over the last 24 hours - MAXIMUM TEMPERATURE of 99.4. - Continue to follow off of antibiotics for now - Right upper quadrant ultrasound showed cholelithiasis with sonographic features of superimposed acute cholecystitis - Patient this morning has 3 episodes of diarrhea. 2. History of postprandial epigastric discomfort: CAT scan showed evidence of nephrolithiasis but no evidence of structural 3. Atrial fibrillation -Continue Eliquis 2.5 twice a day and amiodarone 200 along with metoprolol 12.5 twice a day 4. Stage 1 dysfunction/pulmonary hypertension -He is on bumetanide 0.5 mg daily - She has been on hold secondary to diarrhea -She can resume at home. Discussed with caregiver to give budesonide is no more than 3 bowel movements. She is on a mechanical soft, nectar thick liquid DVT prophylaxis with Eliquis DNR/DNI Problem List: 1. Diarrhea 2. Leukocytosis Pain Ratin Pain Location: Neck Pain Goal: Remain pain free Pain Plan: Tylenol Tomorrow's Labs & Rationales: Patient be discharged today RAFIQ HAMMOND MD 12/02/16 1100: Attending MD Review Statement Attending Statement Attending MD Statement: examined this patient, discuss w/resident/PA/[employer] WINDOW REPAIRER, agreed w/resident/PA/[employer]OM[employer] WINDOW REPAIRER, reviewed EMR data (avail), discussed with nursing, discussed with case mgmt, amended to note Attending Assessment/Plan: Patient seen and examined, denies any complaints. Slightly more awake today. Diarrhea has improved. C. difficile was negative. Vital Signs Date Time Temp Pulse Resp B/P Pulse O2 O2 Flow FiO2 Ox Delivery Rate 12/02 0800 94 Nasal 2.0L Cannula 12/02 0732 98.1 74 18 120/64 94 Nasal Cannula 12/02 0000 Nasal 2.0L Cannula 12/01 2228 98.2 76 18 122/64 95 12/01 2103 95 Nasal 2.0L Cannula 12/01 1600 Nasal 2.0L Cannula 12/01 1453 98.4 69 20 134/60 95 on exam; aox3, nad. cv; s1,s2, rrr resp; clear with decreased bs at bases. abd; soft, nt, bs+ ext; no edema Laboratory Tests 12/02 0815 Chemistry Sodium (137 - 145 mmol/L) 135 L Potassium (3.5 - 5.1 mmol/L) 4.2 Chloride (98 - 107 mmol/L) 101 Carbon Dioxide (22 - 30 mmol/L) 29 Anion Gap (5 - 16) 5 BUN (7 - 17 mg/dL) 13 Creatinine (0.5 - 1.0 mg/dL) 0.6 Estimated GFR (>60 ml/min) > 60 BUN/Creatinine Ratio (7 - 25 %) 21.7 Hematology CBC w Diff NO MAN DIFF REQ WBC (4.8 - 10.8 /CUMM) 11.8 H RBC (4.20 - 5.40 /CUMM) 3.68 L Hgb (12.0 - 16.0 G/DL) 12.5 Hct (37 - 47 %) 35.9 L MCV (81.0 - 99.0 FL) 97.6 MCH (27.0 - 31.0 PG) 34.0 H RDW (11.5 - 14.5 %) 15.0 H Plt Count (130 - 400 /CUMM) 243 MPV (7.4 - 10.4 FL) 8.0 Gran % (42.2 - 75.2 %) 85.8 H Lymphocytes % (20.5 - 51.1 %) 8.2 L Monocytes % (1.7 - 9.3 %) 5.9 Eosinophils % (0 - 5 %) 0.1 Basophils % (0.0 - 2.0 %) 0 L Absolute Granulocytes (1.4 - 6.5 /CUMM) 10.1 H Absolute Lymphocytes (1.2 - 3.4 /CUMM) 1.0 L Absolute Monocytes (0.10 - 0.60 /CUMM) 0.7 H Absolute Eosinophils (0.0 - 0.7 /CUMM) 0 Absolute Basophils (0.0 - 0.2 /CUMM) 0 PUBS MCHC (33.0 - 37.0 G/DL) 34.9 A/p; 86 y/o F with pmh sig for stage I diastolic dysfunction (echo 2013 with LVEF 60-65%), pulmonary hypertension (RV systolic pressure > 55 mmHg), atrial fibrillation on Eliquis, anxiety, depression, osteoporosis of right shoulder, recent diagnosis of bronchiectasis and pneumonia sputum culture positive for ESBL who is now admitted with fever, leukocytosis, diarrhea and complains of shortness of breath. Patient met SIRS criteria but there is no site of infection identified. Patient has been watched off of antibiotics. Patient to get abdominal ultrasound today for cholelithiasis. C. difficile was negative but PCR has been sent. White count has improved. No further fevers. Diarrhea has improved. Continue all other current medications. Patient to work with physical therapy. If US is negative then she could be a possible discharge later today.
[2016-12-02 08:44] LABS: ABSOLUTE BASOPHIL COUNT 0 /CUMM (0.0-0.2); ABSOLUTE EOSINOPHIL COUNT 0 /CUMM (0.0-0.7); ABSOLUTE GRANULOCYTE CT 10.1 /CUMM (1.4-6.5); ABSOLUTE MONOCYTE COUNT 0.7 /CUMM (0.10-0.60); BASOPHIL % 0 % (0.0-2.0); EOSINOPHIL % 0.1 % (0-5); GRANULOCYTE % 85.8 % (42.2-75.2); HEMATOCRIT 35.9 % (37-47); MEAN CORPUSCULAR HGB CONC 34.9 G/DL (33.0-37.0); MEAN CORPUSCULAR VOLUME 97.6 FL (81.0-99.0); PLATELET COUNT 243 /CUMM (130-400); RED BLOOD CELL CT 3.68 /CUMM (4.20-5.40); WHITE BLOOD CELL COUNT 11.8 /CUMM (4.8-10.8)
--- NOTE | 2016-12-02 09:24 | Discharge Summary ---
See Addendum Visit Information Visit Dates Admission Date: 11/30/16 Discharge Date: 12/02/16 Hospital Course Course Attending Physician: LISA MENJIVAR MD Primary Care Physician: MICHELLE HENDRICKS,MARINO Carty Hospital Course: Mrs Castro is an 86-year-old lady with a PMH of stage I diastolic dysfunction ( echo 2013 with LVEF 60-65%), pulmonary hypertension (RV systolic pressure > 55 mmHg), atrial fibrillation on Eliquis, anxiety, depression, osteoporosis of right shoulder, recent diagnosis of bronchiectasis and pneumonia sputum culture positive for ESBL who was brought in with complaints of diarrhea and generalized weakness. Patient was admitted with similar complaints about one week ago, C. difficile infection ruled out and was discharged home during a previous admission. Vitals and admission blood pressure 129/71, respiration 22, pulse rate 84, temperature 99.0, oxygen saturation 93% on room air. Labs and admission WBC 21.7, hemoglobin 12.6, hematocrit 37.4, platelets 253, sodium 1:30, potassium 3.7, 296, bicarbonate 24, BUN 15, creatinine 0.7 Imaging on admission CXR Results Chronic changes within the bilateral lungs, grossly unchanged relative to the prior exam. No acute pulmonary process. Other Results CT abdomen pelvis: Cholelithiasis. Stable 3.3 cm abdominal aortic aneurysm No change in the hyperdensity of the liver parenchyma is prior CAT scan 2014 presumably from prior amiodarone therapy. Multiple compression deformities of the spine most of which are stable since the exam of 09/14/2014. Slight increased compression superior endplate of L1 since prior CAT scan. Hospital course 1. Diarrhea: Patient initially met SIRS criteria with elevated hemoglobin, bandemia and fever. He was admitted to general medical floor. She is not started on antibiotics pending Blood cultures and urine cultures. There was a concern for aspiration as patient is noticed to aspirate while she was drinking fluids. Cultures and urine cultures came back negative. C. difficile was sent which was also negative. It was confirmed with a C. difficile PCR which came back negative. She was continued on conservative management and discharge back to her home with 24 hour health aide. Patient takes Moventik which is a promotilitic agent and given for constipation associated with opioids. Discussed with caregivers and I recommended to stop marantic and give as needed senna/Dulcolax if patient has no bowel movement for more than 3 days. Also recommended to keep head end elevation up to 30 in order to prevent aspiration. Patient was seen by pulmonary who agreed with the above recommendation and follow her off of antibiotics. 2. Weakness secondary to diarrhea: Patient had 2-3 bowel movements while she was in the hospital. She will need continued physical therapy. She continue with physical therapy at home. 3 H/O ESBL in the past: Patient is scheduled isolation. She does admission was negative for any growth. 4. History of atrial fibrillation with rate controlled during this admission and was continued on Eliquis. 5. Anxiety/depression: She was continued on Cymbalta 90 mg daily and Abilify 6. She is on Valtrex 500 mg at bedtime and she has been on it for a while. She should discuss with the family physician and patient to be made to continue versus stopping it as she is at high risk of C. difficile. She is on a mechanical soft, nectar thick liquid DVT prophylaxis with Eliquis DNR/DNI Allergies: Coded Allergies: Iodinated Contrast Media - Oral and (IODINATED CONTRAST MEDIA - IV DYE) (Severe, HEART STOPPED 11/23/16) morphine (Severe, COLLAPSE 11/23/16) Pertinent Lab Results: Laboratory Tests 12/02 04/ 0815 0635 Chemistry Sodium (137 - 145 mmol/L) 135 L 132 L Potassium (3.5 - 5.1 mmol/L) 4.2 3.2 L Chloride (98 - 107 mmol/L) 101 99 Carbon Dioxide (22 - 30 mmol/L) 29 25 Anion Gap (5 - 16) 5 7 BUN (7 - 17 mg/dL) 13 10 Creatinine (0.5 - 1.0 mg/dL) 0.6 0.6 Estimated GFR (>60 ml/min) > 60 > 60 BUN/Creatinine Ratio (7 - 25 %) 21.7 16.7 Magnesium (1.6 - 2.3 mg/dL) 2.1 Hematology CBC w Diff NO MAN DIFF REQ NO MAN DIFF REQ WBC (4.8 - 10.8 /CUMM) 11.8 H 16.4 H RBC (4.20 - 5.40 /CUMM) 3.68 L 3.35 L Hgb (12.0 - 16.0 G/DL) 12.5 11.9 L Hct (37 - 47 %) 35.9 L 32.9 L MCV (81.0 - 99.0 FL) 97.6 98.4 MCH (27.0 - 31.0 PG) 34.0 H 35.5 H RDW (11.5 - 14.5 %) 15.0 H 15.1 H Plt Count (130 - 400 /CUMM) 243 227 MPV (7.4 - 10.4 FL) 8.0 8.4 Gran % (42.2 - 75.2 %) 85.8 H 87.3 H Lymphocytes % (20.5 - 51.1 %) 8.2 L 7.1 L Monocytes % (1.7 - 9.3 %) 5.9 5.6 Eosinophils % (0 - 5 %) 0.1 0 Basophils % (0.0 - 2.0 %) 0 L 0 L Absolute Granulocytes (1.4 - 6.5 /CUMM) 10.1 H 14.3 H Absolute Lymphocytes (1.2 - 3.4 /CUMM) 1.0 L 1.2 Absolute Monocytes (0.10 - 0.60 /CUMM) 0.7 H 0.9 H Absolute Eosinophils (0.0 - 0.7 /CUMM) 0 0 Absolute Basophils (0.0 - 0.2 /CUMM) 0 0 PUBS MCHC (33.0 - 37.0 G/DL) 34.9 36.1 04/ 04 1826 1247 Chemistry Sodium (137 - 145 mmol/L) 132 L Potassium (3.5 - 5.1 mmol/L) 3.0 L Chloride (98 - 107 mmol/L) 99 Carbon Dioxide (22 - 30 mmol/L) 24 Anion Gap (5 - 16) 10 BUN (7 - 17 mg/dL) 10 Creatinine (0.5 - 1.0 mg/dL) 0.6 Estimated GFR (>60 ml/min) > 60 BUN/Creatinine Ratio (7 - 25 %) 16.7 Lactic Acid (0.7 - 2.1 mmol/L) 1.8 Serology C. difficile Tox B Gene (NOT DETECTED) NOT DETECTED Disposition Summary Disposition Principal Diagnosis: 1. Diarrhea, c diff negative 2. Weakness secondary to diarrhea. Additional Diagnosis: 1. A fib on Eliquis 2. Anxiety/depression Discharge Disposition: home health services Discharge Instructions General Discharge Information Code Status: Do Not Resucitate/Intubat Patient's Diet: Mechanical soft, nectar thick liquid Patient's Activity: As tolerated with home PT Follow-Up Instructions/Appts: 1. Follow-up with primary care physician within a week upon discharge 2. Take stool softeners if no bowel movement in 3 days 3 Please stop movantik use Colace for stool softeners. 4. Keep head end of the bed elevated to 30. Watch for aspiration. Medications at Discharge Discharge Medications: Stop taking the following medications: Pantoprazole Sodium (Protonix) 40 MG TABLET. ORAL DAILY Naloxegol Oxalate (Movantik) 25 MG TABLET ORAL DAILY Qty = 30 Continue taking these medications: Amiodarone HCl (Amiodarone HCl) 200 MG TABLET 1 Tablet ORAL DAILY Comments: Last Taken:12/02/16 Time:1100 Bumetanide (Bumetanide) 0.5 MG TABLET 1 Tablet ORAL DAILY Instructions: HOLD IF PATIENT HAS DIARRHEA > 2-3 BM A DAY Comments: Last Taken:NOT GIVEN IN HOSPITAL Time: Aripiprazole (Abilify) 5 MG TABLET 1 Tablet ORAL DAILY Comments: Last Taken:12/02/16 Time:1100 Valacyclovir Hydrochloride (Valtrex) 500 MG TABLET 1 Tablet ORAL AT BEDTIME Comments: Last Taken:12/01/16 Time:9:00 PM Hydrocodone/Acetaminophen (Hydrocodon-Acetaminoph 7.5-300) 7.5 MG-300 MG TABLET 1 Tablet ORAL EVERY 8 HOURS NEEDED as needed for PAIN Comments: Last Taken: Time:NOT GIVEN IN HOSPITAL Duloxetine Hydrochloride (Cymbalta) 30 MG CAPSULE. 90 Milligram ORAL DAILY Comments: Last Taken:12/02/16 Time:1100 Apixaban (Eliquis) 2.5 MG TABLET 1 Tablet ORAL TWICE DAILY Comments: Last Taken:12/02/16 Time:1100 Metoprolol Tartrate (Metoprolol Tartrate) 25 MG TABLET 0.5 Tablet ORAL TWICE DAILY Comments: Last Taken:12/02/16 Time:1100 Docusate Sodium (Colace) 100 MG CAPSULE 1 Capsule ORAL DAILY as needed for stool softener Qty = 30 Instructions: please give it if no BM for 3 days. Comments: NOT GIVEN IN HOSPITAL Copies To: MICHELLE HENDRICKS,MARINO Carty
[2016-12-02 10:18] LABS: C.DIFFICILE TOXIN B QL PCR NOT DETECTED (NOT DETECTED)
--- NOTE | 2016-12-02 11:36 | PN- Pulmonary ---
Subjective HPI/Critical Care Issues: pt seen and examined c.diff negative awaiting usg of abdomen npo no dyspnea at rest no cp no fevers Objective Current Medications: Current Medications Sig/Letty Start time Last Medication Dose Route Stop Time Status Admin Acetaminophen 650 MG .STK-MED ONE 12/01 192 DC PO 12/01 1927 Acetaminophen 650 MG Q6P PRN 11/30 1030 AC 04 PO 1930 Acetaminophen 1,000 MG Q6P PRN 11/30 1030 AC IV Albuterol Sulfate 3 ML Q4P PRN 11/30 1500 AC INH Amiodarone HCl 200 MG DAILY 12/01 1000 AC 12/02 PO 1131 Apixaban 2.5 MG BID 12/01 1000 AC 12/02 PO 1126 Aripiprazole 5 MG DAILY 11/30 1915 AC 12/02 PO 1126 Duloxetine HCl 90 MG DAILY 12/01 1000 AC 12/02 PO 1126 Guaifenesin 600 MG Q12 11/30 1248 AC 12/02 PO 1126 Lorazepam 1 MG ONCE ONE 12/01 2244 DC 12/01 IV 12/01 224 2247 Metoprolol Tartrate 12.5 MG BID 11/30 2200 AC 12/02 PO 1130 Omeprazole 40 MG DAILY AC 11/30 1243 AC 12/01 PO 0555 Patient Medication 1 ED .STK-MED ONE 12/01 1331 DC Teaching ED 12/01 1332 Valacyclovir HCl 500 MG AT BEDTIME 11/30 2200 AC 12/01 PO 2045 Vital Signs & I&O Last 24 Hrs of Vitals and I&O: Vital Signs Date Time Temp Pulse Resp B/P Pulse O2 O2 Flow FiO2 Ox Delivery Rate 12/02 1131 80 150/80 12/02 1130 80 150/80 12/02 08 94 Nasal 2.0L Cannula 12/02 0732 98.1 74 18 120/64 94 Nasal Cannula 12/02 0000 Nasal 2.0L Cannula 12/01 2228 98.2 76 18 122/64 95 / 2103 95 Nasal 2.0L Cannula 12/01 1600 Nasal 2.0L Cannula 12/01 1453 98.4 69 20 134/60 95 Intake & Output 12/02 1600 06 0800 04/ 0000 Intake Total 0 600 Output Total 200 1 Balance -200 599 Intake, Oral 0 600 Number 3 Bowel Movements Output, Stool 1 Output, Urine 200 Exam Other Physical Findings: General - Alert, awake and oriented HEENT - normocephalic, atraumatic Cardiovascular - S1, S2 Lungs - rare rhonchi Abdomen - soft, bowel sounds positive, no tenderness Extremities - without edema or cyanosis Results Last 24 Hrs of Lab Results: Laboratory Tests 12/02/16 0815: Anion Gap 5, Estimated GFR > 60, BUN/Creatinine Ratio 21.7, CBC w Diff NO MAN DIFF REQ, RBC 3.68 L, MCV 97.6, MCH 34.0 H, RDW 15.0 H, MPV 8.0, Gran % 85.8 H, Lymphocytes % 8.2 L, Monocytes % 5.9, Eosinophils % 0.1, Basophils % 0 L, Absolute Granulocytes 10.1 H, Absolute Lymphocytes 1.0 L, Absolute Monocytes 0.7 H, Absolute Eosinophils 0, Absolute Basophils 0, PUBS MCHC 34.9 Impression/Plan Impression/Plan Impression/Plan: Impression 86 year old woman. Consultation for bronchiectasis and hypoxemia in the setting of aspiration. Leukocytosis improved Plan - aspiration precautions - head of bed elevated to 30 degrees - f/u Dr. Randolph's recommendations - pfts as outpt, repeat imaging - o2 checks to determine future o2 needs - on eliquis for a.fib DVT prophylaxis at all times
--- NOTE | 2016-12-02 13:42 | ULTRASOUND REPORT ---
EXAMINATION: US ABDOMEN LIMITED CLINICAL INFORMATION: Fever. Cholecystitis. Leukocytosis. COMPARISON: CT of the abdomen and pelvis done on 11/29/2016. TECHNIQUE: Real-time imaging of the right upper quadrant abdominal viscera. FINDINGS: PANCREAS: Normal. LIVER: Normal. The liver demonstrates normal size, contour and echogenicity. No focal lesion or intrahepatic biliary duct dilatation. GALLBLADDER: The gallbladder is physiologically distended. Multiple mobile gallstones are present. No evidence of gallbladder wall thickening or pericholecystic fluid. COMMON BILE DUCT: Normal in caliber measuring 0.3 cm in diameter. RIGHT KIDNEY: No hydronephrosis. No renal calculi or focal parenchymal lesions. The kidney measures 8.7 cm in maximum dimension. FREE FLUID: None. OTHER FINDINGS: The distal abdominal aortic aneurysm measures 3.3 cm at its maximum dimension. Atherosclerotic plaques are noted within the aorta. IMPRESSION: 1. Cholelithiasis without any sonographic features of superimposed acute cholecystitis and/or biliary obstruction. 2. Distal abdominal aortic aneurysm measuring 3.3 cm.
--- NOTE | 2016-12-02 14:20 | Patient Discharge Instructions ---
Discharge Instructions General Discharge Information You were seen/treated for: Diarrhea, weakness Special Instructions: 1. Follow-up with primary care physician within a week upon discharge 2. Take stool softeners if no bowel movement in 3 days 3 Please stop movantik use Colace for stool softeners. 4. Keep head end of the bed elevated to 30. Watch for aspiration. Diet Recommended Diet: Regular Activity Full Activity/No Limits: Yes Acute Coronary Syndrome Inclusion Criteria At DC or during hospital stay patient has or had the following: ACS DIAGNOSIS No Discharge Core Measures Meds if any: Prescribed or Continued at Discharge Meds if any: NOT Prescribed or Continued at Discharge Congestive Heart Failure Inclusion Criteria At DC or during hospital stay patient has or had the following: CHF DIAGNOSIS No Discharge Core Measures Meds if any: Prescribed or Continued at Discharge Meds if any: NOT Prescribed or Continued at Discharge Cerebrovascular accident Inclusion Criteria At DC or during hospital stay patient has or had the following: CVA/TIA Diagnosis No Discharge Core Measures Meds if any: Prescribed or Continued at Discharge Meds if any: NOT Prescribed or Continued at Discharge Venous thromboembolism Inclusion Criteria VTE Diagnosis No VTE Type NONE VTE Confirmed by (Test) NONE Discharge Core Measures - Per Current guidelines, there needs to be overlap - treatment for the first 5 days of Warfarin therapy. - If discharged on Warfarin prior to 5 days of - overlap therapy, the patient will need to be - assessed for post discharge needs including - *Post discharge parental anticoagulation - *Warfarin and/or parental anticoagulation education - *Follow up date to check INR post discharge At least 5 days overlap therapy as Inpatient No Meds if any: Prescribed or Continued at Discharge Note: Overlap Therapy is Warfarin and Anticoagulant Meds if any: NOT Prescribed or Continued at Discharge
[2016-12-02 14:51] VITALS: BP 123/70
--- NOTE | 2016-12-02 15:05 | PN- Infect Dx ---
Subjective Subjective: Afebrile without complaints. She had one loose stool reported overnight. Objective Last 24 Hrs of Vital Signs/I&O Vital Signs Date Time Temp Pulse Resp B/P Pulse O2 O2 Flow FiO2 Ox Delivery Rate 12/02 1451 98.1 79 18 123/70 93 Room Air 12/02 1350 95 Nasal 2.0L Cannula 12/02 1131 80 150/80 12/02 1130 80 150/80 12/02 0800 94 Nasal 2.0L Cannula 12/02 0732 98.1 74 18 120/64 94 Nasal Cannula 12/02 0000 Nasal 2.0L Cannula 12/01 2228 98.2 76 18 122/64 95 12/01 2103 95 Nasal 2.0L Cannula 12/01 1600 Nasal 2.0L Cannula Intake & Output 12/02 1600 12/02 0800 12/02 0000 Intake Total 450 0 600 Output Total 550 200 1 Balance -100 -200 599 Intake, Oral 450 0 600 Number 2 3 Bowel Movements Output, Stool 1 Output, Urine 550 200 Physical Exam Other Physical Findings: She appears comfortable in no acute distress Lungs crackles at left base Heart irregular rhythm with no murmur Abdomen is soft, nontender with positive bowel sounds Extremities no cyanosis, clubbing or edema Results Last 24 Hours of Lab Results: Laboratory Tests 12/02 0815 Chemistry Sodium (137 - 145 mmol/L) 135 L Potassium (3.5 - 5.1 mmol/L) 4.2 Chloride (98 - 107 mmol/L) 101 Carbon Dioxide (22 - 30 mmol/L) 29 Anion Gap (5 - 16) 5 BUN (7 - 17 mg/dL) 13 Creatinine (0.5 - 1.0 mg/dL) 0.6 Estimated GFR (>60 ml/min) > 60 BUN/Creatinine Ratio (7 - 25 %) 21.7 Hematology CBC w Diff NO MAN DIFF REQ WBC (4.8 - 10.8 /CUMM) 11.8 H RBC (4.20 - 5.40 /CUMM) 3.68 L Hgb (12.0 - 16.0 G/DL) 12.5 Hct (37 - 47 %) 35.9 L MCV (81.0 - 99.0 FL) 97.6 MCH (27.0 - 31.0 PG) 34.0 H RDW (11.5 - 14.5 %) 15.0 H Plt Count (130 - 400 /CUMM) 243 MPV (7.4 - 10.4 FL) 8.0 Gran % (42.2 - 75.2 %) 85.8 H Lymphocytes % (20.5 - 51.1 %) 8.2 L Monocytes % (1.7 - 9.3 %) 5.9 Eosinophils % (0 - 5 %) 0.1 Basophils % (0.0 - 2.0 %) 0 L Absolute Granulocytes (1.4 - 6.5 /CUMM) 10.1 H Absolute Lymphocytes (1.2 - 3.4 /CUMM) 1.0 L Absolute Monocytes (0.10 - 0.60 /CUMM) 0.7 H Absolute Eosinophils (0.0 - 0.7 /CUMM) 0 Absolute Basophils (0.0 - 0.2 /CUMM) 0 PUBS MCHC (33.0 - 37.0 G/DL) 34.9 Last 24 Hours of Maxim Results: Stool C. difficile toxin December 01 negative Stool C. difficile PCR negative Blood cultures November 29 negative Recent Imaging Studies: Right upper quadrant ultrasound December 02 reveals cholelithiasis with no sonographic features of acute cholecystitis or biliary obstruction Assessment/Plan Impression: Continues to improve off antibiotics with temperatures remaining normal and white blood cell count now nearly normal with no obvious focus of infection. Her C. difficile toxin and PCR tests are both negative, making C. difficile unlikely. It is possible that she has aspirated, with CT of the chest revealing new subpleural densities in the right middle lobe and right lower lobe, but as her respiratory status is stable, do not feel this requires treatment. Suggestion: 1. Aspiration precautions 2. Continue to follow off antibiotics
--- NOTE | 2016-12-02 15:46 | Event Note ---
Event Note Event Note: Patient can be discharged today. Discussed with infectious disease specialist. She has a negative C. difficile PCR and white count trending down with no fever over the last 24 hours. Spoke to son and a caregiver and updated about patient's discharge. 1. Recommended to stop moventik, can use stool softeners like Colace or Dulcolax if no bowel movements more than previous.
== END 2016-12-02 17:04 | disposition home health service (06) ==
LOC: ENRESERVTM → ENRESERVDT → ERH 20:41 → ERHI 11-30 00:07 → 2NA 11-30 00:07 → EDBEDREQ 11-30 09:55 → EDBEDREQTM 11-30 09:55 → EDBEDREQ 11-30 09:59 → ERHI 11-30 10:41 → 2NA 11-30 10:50
PROVIDERS: Emergency Medicine; Internal Medicine; ADMIT Emergency Medicine
DX: R19.7 Diarrhea, unspecified (principal); I48.91 Unspecified atrial fibrillation; Z79.01 Long term (current) use of anticoagulants; R53.1 Weakness; F41.9 Anxiety disorder, unspecified; F32.9 Major depressive disorder, single episode, unspecified; D72.829 Elevated white blood cell count, unspecified
CPT/HCPCS: 1263; 1328; 1425; 1530; 1748; 87493; 36415; 74176; 74230; 81003; 82436; 87040; 87070; 87086; 87804; 87804-59; 92610-GN; 92611-GN; 93005; 93010; 96360; 96372; 96375; 96376; G0378; G8996-GN; G8997-GN; G8998-GN; J0131; J1650; J2060; J3490; J7040

== ENCOUNTER 2017-03-07 07:18 | Inpatient (IN) | payer OTHER, MEDICARE ==
[~2017-03-07] VITALS: Ht 152.4 cm; Wt 34.9 kg
--- NOTE | 2017-03-07 07:42 | NUR ---
PT TO ED FOR C/C OF MID-LOWER BACK PAIN THAT HAS BEEN INCREASINGLY GETTING WORSE FOR WEEKS WITH DIFFICULTY BREATHING, MID STERNAL CHEST PAIN. +NONPRODUCTIVE COUGH AT HOME. RECENTLY ADMITTED HERE FOR PNA IN OCTOBER. O2 SAT 90% IN TRAIGE.
--- NOTE | 2017-03-07 07:47 | NUR ---
PT TO ER ROOM 12 VIA WHEELCHAIR. PT ASSISTED ONTO STRETCHER WITH ASSIST OF 2. PT C/O PAIN TO LOWER BACK AND R SHOULDER WHICH IS CHRONIC FOR PT BUT STATES LOW BACK PAIN IS WORSE TODAY. PT ALSO C/O ?PRODUCTIVE COUGH AND SHORTNESS OF BREATH. RA SATS 91-91% AT THIS TIME. PT PLACED ON 2L OXYGEN VIA NASAL CANNULA. PT DENIES PAIN TO CHEST OR ABDOMEN. EKG IN PROGRESS. IV EST TO LFA #22.
[2017-03-07 08:02] LABS: ABSOLUTE BASOPHIL COUNT 0 /CUMM (0.0-0.2); ABSOLUTE EOSINOPHIL COUNT 0 /CUMM (0.0-0.7); ABSOLUTE GRANULOCYTE CT 17.6 /CUMM (1.4-6.5); ABSOLUTE MONOCYTE COUNT 0.7 /CUMM (0.10-0.60); BASOPHIL % 0.2 % (0.0-2.0); EOSINOPHIL % 0.1 % (0-5); GRANULOCYTE % 90.7 % (42.2-75.2); HEMATOCRIT 42.7 % (37-47); MEAN CORPUSCULAR HGB 29.8 PG (27.0-31.0); MEAN CORPUSCULAR HGB CONC 33.2 G/DL (33.0-37.0); MEAN CORPUSCULAR VOLUME 89.9 FL (81.0-99.0); MEAN PLATELET VOLUME 7.9 FL (7.4-10.4); PLATELET COUNT 288 /CUMM (130-400); RBC DISTRIBUTION WIDTH 14.2 % (11.5-14.5); RED BLOOD CELL CT 4.75 /CUMM (4.20-5.40); WHITE BLOOD CELL COUNT 19.4 /CUMM (4.8-10.8)
--- NOTE | 2017-03-07 08:30 | NUR ---
FIRST SET OF BLOOD CULTURES DRAWN AND SENT, PT DIFFICULT STICK
--- NOTE | 2017-03-07 08:37 | NUR ---
CRITICAL TEST RESULTS [id number] SANDHYA COLLINS 86 F TESTS AND RESULTS: LACTIC ACID 3.7 Results received and read back by: JAMAL VICTOR Results received date and time: 03/07/17 0837 The following provider was notified of the results, and read the results back: DR GARCIA Notified date and time: 03/07/17 at 0838
--- NOTE | 2017-03-07 08:50 | NUR ---
NORMAL SALINE BOLUS INFUSING PER ORDER AT THIS TIME, PT PROVIDED WITH WATER PER REQUEST AND REGUALR TRAY ORDERED FOR PT AT THIS TIME. PT SATS REMIAN S94-95% ON 2L OXYGEN. REMAINS NSR ON MONITOR.
--- NOTE | 2017-03-07 09:30 | RADIOLOGY REPORT ---
EXAMINATION:\H\ \N\XR CHEST CLINICAL INFORMATION: Cough and shortness of breath COMPARISON: Chest x-rays most recent prior dated 11/29/2016 TECHNIQUE: Frontal view of the chest was obtained. FINDINGS: Stable cardiomediastinal silhouette. Hyperinflated lungs noted again. Stable opacity noted in the right medial apical segment similar to the previous examination. This was also assessed with CT chest. No acute airspace opacity. Prominence of the pulmonary markings represents a chronic change. Stable calcific densities noted in the right infrahilar region.. Status post right shoulder arthroplasty. IMPRESSION: Stable right upper lobe airspace opacity. No acute interval change.
--- NOTE | 2017-03-07 09:50 | ED AMS/SEIZURE/WEAK/DIZZY ---
History of Present Illness General Chief Complaint: Altered Mental Status Stated Complaint: BACK PAIN?,AMS?,NO APETITE Source: patient, family, old records Exam Limitations: no limitations Vital Signs & Intake/Output Vital Signs & Intake/Output Vital Signs Date Time Temp Pulse Resp B/P B/P Pulse O2 O2 Flow FiO2 Mean Ox Delivery Rate 03/07 1020 98.9 74 18 121/57 96 03/07 0838 95 Nasal 2.0L Cannula 03/07 07 97.4 79 20 116/67 91 Room Air Room Air Allergies Coded Allergies: Iodinated Contrast- Oral and IV Dye (IODINATED CONTRAST MEDIA - IV DYE) (Severe, HEART STOPPED 03/07/17) morphine (Severe, COLLAPSE 03/07/17) Reconcile Medications Albuterol Sulfate (Proair Hfa) 90 MCG HFA.AER.AD 2 PUF INH Q4-6 PRN PRN SOB ( Reported) Amiodarone HCl 200 MG TABLET 1 TAB PO DAILY AFIB (Reported) Apixaban (Eliquis) 2.5 MG TABLET 1 TAB PO BID BLOOD THINNER (Reported) Aripiprazole (Abilify) 5 MG TABLET 1 TAB PO DAILY ANXIETY (Reported) Bumetanide 0.5 MG TABLET 1 TAB PO DAILY WATER PILL (Reported) HOLD IF PATIENT HAS DIARRHEA > 2-3 BM A DAY Duloxetine Hydrochloride (Cymbalta) 30 MG CAPSULE.DR 90 MG PO DAILY MENTAL HEALTH (Reported) Hydrocodone/Acetaminophen (Hydrocodon-Acetaminoph 7.5-300) 7.5 MG-300 MG TABLET 1 TAB PO Q8P PRN PAIN (Reported) Lorazepam (Ativan) 0.5 MG TABLET 0.5 TAB PO BIDP PRN ANXIETY (Reported) Metoprolol Tartrate 25 MG TABLET 0.5 TAB PO BID HEART (Reported) Valacyclovir Hydrochloride (Valtrex) 500 MG TABLET 1 TAB PO AT BEDTIME SHINGLES PREVENTION (Reported) Core Measure Meds Pre-Hospital Eliquis Triage Note: PT TO ED FOR C/C OF MID-LOWER BACK PAIN THAT HAS BEEN INCREASINGLY GETTING WORSE FOR WEEKS WITH DIFFICULTY BREATHING, MID STERNAL CHEST PAIN. +NONPRODUCTIVE COUGH AT HOME. RECENTLY ADMITTED HERE FOR PNA IN OCTOBER. O2 SAT 90% IN TRAIGE. Triage Nurses Notes Reviewed? yes Onset: 1 day Duration: day(s):, constant, continues in ED Timing: recent history Injury Environment: home Severity: moderate, severe Modifying Factors: Improves With: rest. Worsens With: movement. Associated Symptoms: cough LMP (ages 10-50): post menopausal : No Patient currently breastfeeds: No HPI: 1 day prior to admission patient complains of weakness and fatigue decreased appetite productive cough of yellow sputum with shortness of breath. She denies fever chills nausea vomiting diarrhea abdominal pain chest pain headache dysuria rash bleeding. Past History Travel History Traveled to [place] past 21 day No Medical History Any Pertinent Medical History? see below for history Neurological: NONE EENT: NONE Cardiovascular: AFIB, CHF, hypertension, ANGIOPLASTY Respiratory: pneumonia Gastrointestinal: GERD Hepatic: NONE Renal: NONE Musculoskeletal: osteoporosis, CHRONIC RIGHT SHOULDER DEFORMITY, HISTORY OF RIGHT HUMERUS FRACTURE Psychiatric: chronic pain disorder, depression Blood Disorders: PE Cancer(s): NONE Other Medical Hx: Shingles History of MRSA: No History of VRE: No History of CDIFF: No Influenza Vaccine: 06/29/16 Surgical History Surgical History: ANGIOPLASTY right lower extremity right shoulder surgery Psychosocial History Who do you live with Patient/Self Services at Home [employer] What is your primary language Pashto Tobacco Use: Quit >30 days ago ETOH Use: denies use Illicit Drug Use: denies illicit drug use Family History Family History, If Any: MOTHER FH: CAD (coronary artery disease) FATHER FH: CAD (coronary artery disease) Hx Contributory? No Review of Systems Review of Systems Constitutional: Reports: see HPI, malaise, weakness. EENTM: Reports: no symptoms. Respiratory: Reports: see HPI, cough, short of breath, sputum production. Cardiovascular: Reports: no symptoms. GI: Reports: no symptoms. Genitourinary: Reports: no symptoms. Musculoskeletal: Reports: no symptoms. Skin: Reports: no symptoms. Neurological/Psychological: Reports: see HPI, weakness. Hematologic/Endocrine: Reports: no symptoms. Immunologic/Allergic: Reports: no symptoms. All Other Systems: Reviewed and Negative Physical Exam Physical Exam General Appearance: alert, awake, cachetic, moderate distress Head: atraumatic, normal appearance Eyes: Bilateral: normal appearance, PERRL, EOMI. Ears, Nose, Throat: normal pharynx, normal ENT inspection, hearing grossly normal Neck: normal inspection, supple, full range of motion, no midline tenderness Respiratory: chest non-tender, decreased breath sounds, rhonchi Cardiovascular: regular rate/rhythm, normal peripheral pulses, norml femoral pulses equa Peripheral Pulses: 4+ carotid (R), 4+ carotid (L) Gastrointestinal: normal bowel sounds, soft, non-tender, no organomegaly Back: normal inspection, normal range of motion Extremities: normal range of motion, no ligament instability Neurologic/Psych: awake, alert, oriented x 3, motor weakness Reflexes: 2+: bicep (R), bicep (L). Skin: intact, normal color, warm/dry Lymphatic: no anterior cervical tianna Core Measures ACS in differential dx? Yes ASA ordered for poss ACS? No-other contraindication CVA/TIA Diagnosis: No Severe Sepsis Present: No Septic Shock Present: No Progress Differential Diagnosis: dehydration, electrolyte imbalance, hypoxia, pneumonia Plan of Care: Orders Procedure Date/time Status CBC WITHOUT DIFFERENTIAL 03/08 06 Active BASIC ELECTROLYTES PLUS BUN&CR 03/08 0600 Active Regular Diet 03/07 L Complete Nothing by Mouth 03/07 D Active Regular Diet 03/07 B Complete CULTURE,URINE 03/07 1123 Active LACTIC ACID 03/07 1115 Active TRC EVALUATION (GEN) 03/07 1114 Active OXYGEN SETUP (GEN) 03/07 1114 Active Pathway - chart 03/07 1114 Active House Staff 03/07 1114 Active SPECIMEN TO BE OBTAINED 03/07 1114 Active STREP PNEUMO URINARY ANTIGEN 03/07 1114 Complete LEGIONELLA URINARY ANTIGEN 03/07 1114 Complete Code Status 03/07 1114 Active Patient Data 03/07 1025 Active OXYGEN SETUP (GEN) 03/07 1012 Active Saline Lock 03/07 1012 Active Admit to inpatient 03/07 1012 Active Vital Signs 03/07 1012 Active Activity/Ambulation 03/07 1012 Active Code Status 03/07 1012 Complete Add-on Test (ER Only) 03/07 0812 Active BLOOD CULTURE 03/07 0812 Active URINALYSIS 03/07 0812 Complete THYROID STIMULATING HORMONE 03/07 0749 Complete MAGNESIUM 03/07 0749 Complete LACTIC ACID 03/07 0749 Complete FREE T4 03/07 0749 Complete TROPONIN LEVEL 03/07 0747 Complete COMPREHENSIVE METABOLIC PANEL 03/07 0747 Complete CBC WITHOUT DIFFERENTIAL 03/07 0747 Complete EKG 03/07 0720 Active SWALLOW EVALUATION 03/07 UNK Active PT Evaluate & Treat 03/07 UNK Active Lab Add-on Test 03/07 UNK Active VTE Mechanical Prophylaxis 03/07 UNK Active Vital Signs 03/07 UNK Active Precautions 03/07 UNK Active Isolation 03/07 UNK Active Intake & Output 03/07 UNK Active Current Medications Sig/Letty Start time Last Medication Dose Stop Time Status Admin Bumetanide 0.5 MG DAILY 03/08 1000 AC (Bumex) Ampicillin Sodium/ 3,000 MG Q12H 03/07 2230 AC Sulbactam Sodium (Unasyn) Sodium Chloride 100 ML (Normal Saline 0.9%) Valacyclovir HCl 500 MG AT BEDTIME 03/07 2200 AC (Valtrex) Duloxetine HCl 90 MG DAILY 03/07 1215 AC (Cymbalta) Lorazepam 0.25 MG BID PRN 03/07 1215 AC (Ativan) 03/14 1214 Metoprolol Tartrate 12.5 MG BID 03/07 1215 AC (Lopressor) Amiodarone HCl 200 MG DAILY 03/07 1214 AC (Cordarone) Apixaban 2.5 MG BID 03/07 1214 AC (Eliquis) Aripiprazole 5 MG DAILY 03/07 1214 AC (Abilify) Acetaminophen 650 MG Q6P PRN 03/07 1115 AC (Tylenol) Sodium Chloride 1,000 ML Q13H 03/07 1115 AC 03/07 (Normal Saline 0.9%) 03/08 1314 1146 Laboratory Tests 03/07/17 1237: Lactic Acid Pending 03/07/17 1130: Urinalysis LIGHT H, Urine Color YEL, Urine Clarity CLEAR, Urine pH 7.0, Ur Specific [place] 1.010, Urine Protein TRACE H, Urine Ketones NEG, Urine Nitrite NEG, Urine Bilirubin NEG, Urine Urobilinogen 0.2, Ur Leukocyte Esterase NEG, Ur Microscopic SEDIMENT EXAMINED, Urine RBC RARE, Urine WBC RARE, Ur Epithelial Cells MOD H, Urine Bacteria RARE H, Hyaline Casts RARE H, Granular Casts RARE H, Urine Mucus RARE, Urine Hemoglobin NEG, Urine Glucose NEG 03/07/17 0749: Anion Gap 15, Estimated GFR > 60, BUN/Creatinine Ratio 26.3 H, Glucose 113 H, Lactic Acid 3.7 H, Calcium 9.8, Magnesium 1.9, Total Bilirubin 0.8, AST 38 H, ALT 37, Alkaline Phosphatase 129 H, Troponin I 0.02, Total Protein 8.3 H, Albumin 4.3, Globulin 4.0, Albumin/Globulin Ratio 1.1, TSH 1.110, Free T4 2.60 H, CBC w Diff MAN DIFF ORDERED, RBC 4.75, MCV 89.9, MCH 29.8, RDW 14.2, MPV 7.9, Gran % 90.7 H, Lymphocytes % 5.4 L, Monocytes % 3.6, Eosinophils % 0.1, Basophils % 0.2, Absolute Granulocytes 17.6 H, Segmented Neutrophils 86 H, Band Neutrophils 2, Absolute Lymphocytes 1.0 L, Lymphocytes 10 L, Monocytes 2, Absolute Monocytes 0.7 H, Absolute Eosinophils 0, Absolute Basophils 0, Platelet Estimate ADEQUATE, Normocytic RBCs VERIFIED, Normochromic RBCs VERIFIED , PUBS MCHC 33.2 Microbiology 03/07 1130 URINE ROUT: Urine Culture - RECD 03/07 1130 URINE ROUT: Legionella Antigen - COMP 03/07 1130 URINE ROUT: Streptococcus pneumoniae Antigen (M - COMP 03/07 0831 BLOOD: Blood Culture - RECD 03/07 812 BLOOD: Blood Culture - ORD Diagnostic Imaging: Viewed by Me: Radiology Read. Discussed w/RAD: Radiology Read. CXR Impression: Stable right upper lobe airspace opacity. No acute interval change. Initial ED EKG: normal axis, normal intervals, normal p-waves, normal QRS complex, normal sinus rhythm, nonspecific ST T wave chg Prior EKG: unchanged Rhythm Strip: normal sinus rhythm Departure Departure Disposition: STILL A PATIENT Condition: Stable Clinical Impression Primary Impression: Pneumonia Qualifiers: Pneumonia type: due to unspecified organism Laterality: unspecified laterality Lung location: unspecified part of lung Qualified Code: J18.9 - Pneumonia, unspecified organism Secondary Impressions: Leukocytosis, unspecified Qualifiers: Leukocytosis type: unspecified Qualified Code: D72.829 - Elevated white blood cell count, unspecified Referrals: MICHELLE HENDRICKS,MARINO Carty (PCP/Family) Departure Forms: Customer Survey General Discharge Information Admission Note Spoke With: LISA MENJIVAR MD Documentation of Exam: Documentation of any treatments & extenuating circumstances including Concerns Regarding Discharge (functional status, medication knowledge or non-compliance, living conditions, etc.) that warrant an admission rather than observation: Supplemental oxygen IV antibiotics follow cultures serial lab exam medication adjustment pulmonary evaluation continuing care discharge planning ED Sepsis Exam Date of Focused Sepsis Exam: 03/07/17 Time of Focused Sepsis Exam: 1200 Sepsis Cardiac Exam: Regular Rate/Rhythm Sepsis Resp Exam: Jonah Sepsis Cap Refill Exam: <2 Sec Sepsis Peripheral Pulse Exam: Normal Sepsis Peripheral Pulse Location: Radial Sepsis Skin Color Exam: Normal for Ethnicity Skin Temp/Moisture Exam: Warm/Dry
--- NOTE | 2017-03-07 09:53 | NUR ---
PT SITTING UP EATING TRAY AT THIS TIME. OFFERS NO COMPLAINTS. FAMILY REMAINS AT BEDSIDE.
--- NOTE | 2017-03-07 10:37 | History & Physical ---
CELIO CARDOZO 03/07/17 1036: General Information and HPI MD Statement: I have seen and personally examined SANDHYA COLLINS and documented this H&P. The patient is a 86 year old F who presented with a patient stated chief complaint of [altered mental status, purulent productive cough]. Source of Information: patient, old records Exam Limitations: no limitations History of Present Illness: 86-year-old lady with a PMH of stage I diastolic dysfunction (echo 2013 with LVEF 60-65%), pulmonary hypertension (RV systolic pressure > 55 mmHg), atrial fibrillation on Eliquis, anxiety, depression, osteoporosis of right shoulder, recent diagnosis of bronchiectasis and pneumonia sputum culture positive for ESBL inOctober 2016, readmission in November 2016 for diarhhea, found to be negative for C. Diff on PCR, with symptoms thought to be 2/2 Movantik who presents to the ED today with c/o back pain, and altered mental status, difficulty breathing, and purulent productive cough at home. Accoridng to the patient she has been having productive cough for a while now, but for the past week or so, she has been bringing up yellow colored phlegm. Denies any chest pain, fever, chills. Endorses decreased appetite, chest pain, palpitations, nausea, vomiting, orthopnea, constipation, diarrhea, PND, hx of sick contact, prolonged travel. Endorses mid back pian, that she states is chronic for the past 2-3 months. No radiation, and pain. Allergies/Medications Allergies: Coded Allergies: Iodinated Contrast- Oral and IV Dye (IODINATED CONTRAST MEDIA - IV DYE) (Severe, HEART STOPPED 03/07/17) morphine (Severe, COLLAPSE 03/07/17) Home Med list Albuterol Sulfate (Proair Hfa) 90 MCG HFA.AER.AD 2 PUF INH Q4-6 PRN PRN SOB ( Reported) Amiodarone HCl 200 MG TABLET 1 TAB PO DAILY AFIB (Reported) Apixaban (Eliquis) 2.5 MG TABLET 1 TAB PO BID BLOOD THINNER (Reported) Aripiprazole (Abilify) 5 MG TABLET 1 TAB PO DAILY ANXIETY (Reported) Bumetanide 0.5 MG TABLET 1 TAB PO DAILY WATER PILL (Reported) HOLD IF PATIENT HAS DIARRHEA > 2-3 BM A DAY Duloxetine Hydrochloride (Cymbalta) 30 MG CAPSULE.DR 90 MG PO DAILY MENTAL HEALTH (Reported) Hydrocodone/Acetaminophen (Hydrocodon-Acetaminoph 7.5-300) 7.5 MG-300 MG TABLET 1 TAB PO Q8P PRN PAIN (Reported) Lorazepam (Ativan) 0.5 MG TABLET 0.5 TAB PO BIDP PRN ANXIETY (Reported) Metoprolol Tartrate 25 MG TABLET 0.5 TAB PO BID HEART (Reported) Valacyclovir Hydrochloride (Valtrex) 500 MG TABLET 1 TAB PO AT BEDTIME SHINGLES PREVENTION (Reported) Past History Travel History Traveled to [place] past 21 day No Medical History Neurological: NONE EENT: NONE Cardiovascular: AFIB, CHF, hypertension, ANGIOPLASTY Respiratory: pneumonia Gastrointestinal: GERD Hepatic: NONE Renal: NONE Musculoskeletal: osteoporosis, CHRONIC RIGHT SHOULDER DEFORMITY, HISTORY OF RIGHT HUMERUS FRACTURE Psychiatric: chronic pain disorder, depression Blood Disorders: PE Cancer(s): NONE Other Medical Hx: Shingles History of MRSA: No History of VRE: No History of CDIFF: No Influenza Vaccine: 06/29/16 Surgical History Surgical History: ANGIOPLASTY right lower extremity right shoulder surgery Past Family/Social History Family History Relations & Conditions if any MOTHER FH: CAD (coronary artery disease) FATHER FH: CAD (coronary artery disease) Psychosocial History 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 Needs Assist: toileting, bathing. Ambulation: walker IADLs Independent: telephone. Needs Assist: shopping, housework, finances, food prep, transportation, medication admin. Review of Systems Review of Systems Constitutional: Reports: malaise. Denies: chills, fever, weakness. EENTM: Denies: visual changes. Cardiovascular: Denies: chest pain, orthopena, palpitations, peripheral edema, syncope. Respiratory: Reports: cough, short of breath, sputum production. Denies: hemoptysis, orthopnea, wheezing. GI: Denies: abdominal pain, constipation, diarrhea, nausea, vomiting. Genitourinary: Denies: frequency, pain, urgency. Musculoskeletal: Reports: no symptoms. Neurological/Psychological: Denies: headache, numbness, tingling, tremors, unable to move lower ext, unable to move upper ext. Exam & Diagnostic Data Last 24 Hrs of Vital Signs/I&O Vital Signs Date Time Temp Pulse Resp B/P B/P Pulse O2 O2 Flow FiO2 Mean Ox Delivery Rate 03/07 1020 98.9 74 18 121/57 96 03/07 0838 95 Nasal 2.0L Cannula 03/07 722 97.4 79 20 116/67 91 Room Air Room Air Intake & Output 03/07 1600 03/07 0800 03/07 0000 Intake Total Output Total Balance Patient 77 lb 0.01 oz Weight Weight Reported by Patient Measurement Method Physical Exam General Appearance Alert, Oriented X3, Cooperative Skin Temp/Moisture Exam: Warm/Dry HEENT Atraumatic, PERRLA, EOMI, DRY MUCOUS MEMBRANES Neck Supple, No JVD, No thryomegaly, +2 Carotid Pulse wo Bruit, No LAD Cardiovascular Normal S1, Normal S2, No Murmurs Lungs BILATERAL MILD RONCHI Abdomen Normal Bowel Sounds, Soft, No Tenderness Neurological Normal Speech, Strength at 5/5 X4 Ext, Normal Tone, Sensation Intact, Cranial Nerves 3-12 NL, Reflexes 2+ Extremities No Edema, Normal Pulses, No Tenderness/Swelling Vascular Normal Pulses, Pulses Symmetrical Last 24 Hrs of Labs/Maxim: Laboratory Tests 03/07/17 0749: Anion Gap 15, Estimated GFR > 60, BUN/Creatinine Ratio 26.3 H, Glucose 113 H, Lactic Acid 3.7 H, Calcium 9.8, Magnesium 1.9, Total Bilirubin 0.8, AST 38 H, ALT 37, Alkaline Phosphatase 129 H, Troponin I 0.02, Total Protein 8.3 H, Albumin 4.3, Globulin 4.0, Albumin/Globulin Ratio 1.1, CBC w Diff MAN DIFF ORDERED, RBC 4.75, MCV 89.9, MCH 29.8, RDW 14.2, MPV 7.9, Gran % 90.7 H, Lymphocytes % 5.4 L, Monocytes % 3.6, Eosinophils % 0.1, Basophils % 0.2, Absolute Granulocytes 17.6 H, Segmented Neutrophils 86 H, Band Neutrophils 2, Absolute Lymphocytes 1.0 L, Lymphocytes 10 L, Monocytes 2, Absolute Monocytes 0.7 H, Absolute Eosinophils 0, Absolute Basophils 0, Platelet Estimate ADEQUATE , Normocytic RBCs VERIFIED, Normochromic RBCs VERIFIED, PUBS MCHC 33.2 Microbiology 03/07 831 BLOOD: Blood Culture - RECD 03/07 812 BLOOD: Blood Culture - ORD Diagnostic Data EKG Results NSR, HR: 66, ?LAD, ST-T depressions in V4-V6 unchanged; poor R wave progression, LVH CXR Results FINDINGS: Stable cardiomediastinal silhouette. Hyperinflated lungs noted again. Stable opacity noted in the right medial apical segment similar to the previous examination. This was also assessed with CT chest. No acute airspace opacity. Prominence of the pulmonary markings represents a chronic change. Stable calcific densities noted in the right infrahilar region.. Status post right shoulder arthroplasty. IMPRESSION: Stable right upper lobe airspace opacity. No acute interval change. Other Results SERVICE DATE: 02/27/17- EXAM TYPE: CAT - CT CHEST WO IV CONTRAST FINDINGS: LUNGS AND PLEURA: Moderate centrilobular emphysema. Irregular peribronchial opacity in the right lung apex extending to the apical pleura with associated bronchiectasis measures approximately 4.6 x 3.4 cm (images 8-10, series 3), not appreciably changed compared to 11/30/2016. There are several old, noncalcified nodules and some scattered endobronchial secretions in the right upper lobe. On 11/30/2016, there was a new area of consolidation along with new tree-in-bud nodular opacities within the anterior segment of the right upper lobe, and this disease has subsequently improved. There are persistent tree-in-bud opacities, bronchiectasis, bronchial secretions and peribronchial opacities of atelectasis or scarring in the middle lobe. A region of consolidation in the right lower lobe has significantly decreased and now has a more linear configuration of residual atelectasis and/or scarring (image 216, series 4). There are some bronchial secretions in the left lung. Findings in the left lung include chronic bronchiectasis and peribronchial atelectasis/fibrosis in the lingula and scattered linear opacities of scarring or atelectasis in the upper and lower lobes. The area of consolidation with air bronchograms in the superior segment of left lower lobe measures approximately 1.5 x 1.8 cm, similar compared to 11/30/2016 and increased in size compared to 10/22/2015. MEDIASTINUM: Heart size is normal. [id number]-[id number] atherosclerotic calcification of the thoracic aorta and coronary arteries. No pericardial effusion. The esophagus is unremarkable. Thyroid gland appears to have several small hypodense nodules, largest measuring up to approximately 0.8 cm. LYMPHATICS: No pathologic sized axillary, hilar or mediastinal lymph nodes. UPPER ABDOMEN: Adrenal glands are normal. Liver is chronically, diffusely hyperdense. No focal hepatic lesions are seen. The visualized infrarenal abdominal aorta measures up to 3.6 cm AP diameter, unchanged compared to 10/22/2015. OSSEOUS STRUCTURES: Bone density is diffusely decreased and there are multiple old compression fractures within the extensively degenerated spine. There are several old, bilateral rib fractures. No aggressive osseous lesions. Streak artifact is produced by the right shoulder arthroplasty. IMPRESSION: 1. Pulmonary emphysema. 2. Interval improvement in the tree-in-bud pulmonary nodularity and in the previously noted areas of right lower lobe consolidation, consistent with improvement of bronchiolitis and pneumonia. 3. Irregular areas of peribronchial consolidation with air bronchograms and/or protraction bronchiectasis in the right lung apex and superior segment of the left lower lobe are unchanged from 11/30/2016, but are increased in size compared to 10/22/2015. These opacities are considered nonspecific and could represent areas of indolent and/or recurrent pneumonia, peribronchial postinflammatory fibrosis and/or neoplastic change (which is regarded as less likely than infectious/inflammatory change). No lymphadenopathy, pleural effusion or other new pathology. 4. Liver is chronically and diffusely hyperdense, for which differential diagnosis includes hemachromatosis, hemosiderosis and/or amiodarone toxicity. Assessment/Plan Assessment: 86-year-old lady with a PMH of stage I diastolic dysfunction (echo 2013 with LVEF 60-65%), pulmonary hypertension (RV systolic pressure > 55 mmHg), atrial fibrillation on Eliquis, anxiety, depression, abdominal aortic aneurysm, osteoporosis of right shoulder, recent diagnosis of bronchiectasis and pneumonia sputum culture positive for ESBL inOctober 2016, readmission in November 2016 for diarhhea, found to be negative for C. Diff on PCR, with symptoms thought to be 2 /2 Movantik who presents to the ED today with c/o back pain, and altered mental status, difficulty breathing, chest pain and purulent productive cough at home. Vitals at the time of admission blood pressure 121/57, respiratory rate of 18, pulse 74, afebrile saturating 91% on room air and was placed on 2.0 L of oxygen via nasal cannula after which her saturations improved to 96%. Labs pertinent for leukocytosis with a white blood cell count of 19,400, normal H&H of 14.2/42.7, normal MCV of 89.8 with platelet count 280,000. Serum chemistries revealed a sodium of 139, potassium of 3.8, bicarbonate of 26, BUN 21 with a creatinine of 0.8. Serum glucose elevated to 113, lactic acid elevated at 3.7. LFTs revealed total bili of 0.8 AST/ALT of 38/37, alkaline phosphatase of 129, first set of troponin 0.02. UA not received. Chest x-ray was done which showed stable right upper lobe airspace opacity, no acute interval change EKG revealed: NSR, HR: 66, ?LAD, ST-T depressions in V4-V6 unchanged; poor R wave progression, LVH In the ER she received Unasyn 3000 mg IV 1 and a normal saline bolus of 1000ml x1. Assessment and plan Admit patient to [facility]. #Acute hypoxic respiratory failure - Most likely 2/2 aspiration pneumonia, versus bronchiectasis vs PE (patient is on Eliquis) vs amio toxicity?? vs COPD exacerbation - She has grown ESBL E.Cloi in her LRC in the past, sensitive to Unasyn and Augmentin, resistant to cephalosporins - Will start her on Unasyn 3000mg Q12 IV renally adjusted to cover for aspiration PNA and ESBL. - Will start him on NS @ 75ml/hrs for 2 bags - F/U lower respiratory culture, blood cultures x2 - NPO for niow, and get a formal swlalow eval. - Maintain on sapiration precautions - TRC/Nebs as needed - Send urinary antigen for Legionella and Strep pneumonia - Continue to provide supplemental oxygen via nasal cannula to maintain sats > 94%. - Pulm consult with Dr. Hyatt #Lactic acidosis - 2/2 infection - Repeat LA and hydrte with IVFs. - Holding Bumex, strat form tmrw #Afib on ELiquis - Continue on Eliquis 2.5mg BID, Lopressor 12.5mg BID PO, and Amiodarone 200mg PO daily. # Depression and anxiety - Continue on Duloxetine 90mg daily, Abilify 5mg daily, Lorazepam 0.25mg BID PO PRN - Hx of encephalitis - On prophylactic Valtrex 500mg PO at betdtime - DVT prophylaxis - On Eliquis - Diet NPO pending formal swallow eval - Code status - DNR/DNI As Ranked By This Provider Problem List: 1. Aspiration pneumonia 2. Leukocytosis Qualifiers Leukocytosis type: unspecified Qualified Code: D72.829 - Elevated white blood cell count, unspecified Core Measures/Miscellaneous Acute Coronary Syndrome ACS Diagnosis: No Cerebrovascular Accident CVA/TIA Diagnosis: No Congestive Heart Failure CHF Diagnosis: No VTE (View Protocol) VTE Risk Factors: Age > 40 No [facility] VTE prophylaxis d/t: No contraindications No VTE Pharm Prophylaxis d/t: No contraindications VTE Diagnosis: No VTE Type: NONE VTE Confirmed by (Test): NONE Sepsis (View Protocol) Severe Sepsis Present: No Septic Shock Septic Shock Present: No Miscellaneous Documentation Attending Case Discussed With: ROSHAN LEBLANC M.D Primary Care Physician: MARINO MARTINEZ MD Patient sees these Specialists Dr. Olena Perez Level of Patient Care: General Medicine Consults Needed: Consulting Specialty: Pulmonary Disease Resident Review Statement Resident Statement: admitted by resident ROSHAN LEBLANC MD 03/07/17 1444: Attending MD Review Statement Attending Statement Attending MD Statement: examined this patient, discuss w/resident/PA/SAND MILLER, agreed w/resident/PA/SAND MILLER, reviewed EMR data (avail), discussed with nursing, amended to note Attending Assessment/Plan: Patient seen and examined. I have reviewed and agree with the history and physical as well as assessment and plan as documented by the resident above. She is a pleasant 86-year-old female who presents with worsening cough shortness of breath going on for the past week. She was treated earlier this year for pneumonia secondary to ESBL Escherichia coli. 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 She arrived afebrile at hemodynamically stable. She does have a significant leukocytosis of 19,000 elevated compared to previous. On examination she appears mildly lethargic but not in respiratory distress. She is maintaining saturation on 2 L of oxygen. She has no jugular venous distention. She has diminished breath sounds bilaterally with mild rhonchi. She has no peripheral edema. Assessment: -This recurrent episode of pneumonia raises concern for ongoing aspiration. She does have some dysphagia and is on a modified diet at home. -Also within the differential is a amiodarone-induced lung toxicity versus malignancy. Plan: -Admit to the inpatient medical service. Empiric antibiotic therapy with IV Unasyn. Aspiration precautions. Obtain sputum cultures. -Pulmonology consultation. -She is currently in sinus rhythm likely due to amiodarone. Continue his regimen for now. Check C-reactive protein. -Continue oxygen supplementation. -Continue her chronic pain regimen. Continue her anxiolytic therapy with caution. -She received a bolus of IV fluids in the emergency room. She does not appear clinically dehydrated. I agree with resuming her oral diuretic therapy tomorrow.
--- NOTE | 2017-03-07 10:38 | NUR ---
IV UNASYN INFUSING PER ORDER AT THIS TIME. PT VERY DIFFICULT STICK, ONLY ABLE TO OBTAIN FIRST SET OF BLOOD CULTURES. MD FLOWERS
--- NOTE | 2017-03-07 11:32 | NUR ---
ASSISTED PT TO USE BEDAPN AT THIS TIME. SPECIMEN OBTAINED AND SENT TO LAB
--- NOTE | 2017-03-07 11:46 | NUR ---
NS INFUISNG AT 75 ML/HR PER ORDER AT THIS TIME HOUSE STAFF AT BEDSIDE FOR EVAL
--- NOTE | 2017-03-07 12:04 | NUR ---
REPEAT LACTIC ACID DRAWN AND SENT TO LAB BY THIS M[facility]
[2017-03-07] MEDS ORDERED: PROAIR HFA8.5 GM INH (12:05)
[2017-03-07] MEDS ORDERED: ATIVAN0.5 M1 PO (12:07)
--- NOTE | 2017-03-07 12:30 | NUR ---
SPEECH THERAPIST AT BEDSIDE FOR SWALLOW EVAL AT THIS TIME
--- NOTE | 2017-03-07 12:30 | NUR ---
[facility] CALLED FOR MEDS AT THIS TIME
--- NOTE | 2017-03-07 12:48 | NUR ---
PTS CARETAKERS NUMBER ([phone])
--- NOTE | 2017-03-07 13:23 | NUR ---
PT MEDICATED PER ORDER AT THIS TIME. ASSISTED ONTO BEDPAN, OUTPUT 200CC URINE. PT REPOSTIED IN BED. A
--- NOTE | 2017-03-07 13:30 | Cons- Pulmonary ---
General Information and HPI Consulting Request Date of Consult: 03/07/17 Requested By: Dr. Corbett Reason for Consult: dyspnea, aspiration pneumonia Source of Information: patient Exam Limitations: no limitations History of Present Illness: 86 year old woman. Consultation for bronchiectasis and hypoxemia in the setting of aspiration. Has been seen in the offce last 11/2016. Hx of diastolic heart failure, a.fib, anxiety, depression, severe osteoporosis, history of fall 4 years ago that led to frozen right shoulder. Recent aspiraton pna, tx with Augmentin. CXR with a stable RUL opacity. CT chest: Diffuse emphysema with chronic interstitial lung changes both prominent in both lung bases, right middle lobe and right lower lobe. There are several ill- defined parenchymal densities most prominent in the right lung apex with bronchiectasis which has increased in size from previous study. New subpleural density right middle lobe an new right lower lobe consolidation. Underlying inflammatory process is suspected. New left posterior pleural and minimal right posterior pleural thickening but no pleural effusion. No abnormal mediastinal adenopathy seen however limited due to lack of IV contrast. Has had teeth pulled out in May and has had excessive salivation with globus formation and reported aspiration. It has improved, but throughout past few months this has been an issue. Currently no dyspnea at rest, only with exertion. No CP, no fevers, no chills, no nvdc. ESBL E.Coli in sputum. Some dyspnea with exertion, dry cough. Allergies/Medications Allergies: Coded Allergies: Iodinated Contrast- Oral and IV Dye (IODINATED CONTRAST MEDIA - IV DYE) (Severe, HEART STOPPED 03/07/17) morphine (Severe, COLLAPSE 03/07/17) Home Med List: Albuterol Sulfate (Proair Hfa) 90 MCG HFA.AER.AD 2 PUF INH Q4-6 PRN PRN SOB ( Reported) Amiodarone HCl 200 MG TABLET 1 TAB PO DAILY AFIB (Reported) Apixaban (Eliquis) 2.5 MG TABLET 1 TAB PO BID BLOOD THINNER (Reported) Aripiprazole (Abilify) 5 MG TABLET 1 TAB PO DAILY ANXIETY (Reported) Bumetanide 0.5 MG TABLET 1 TAB PO DAILY WATER PILL (Reported) HOLD IF PATIENT HAS DIARRHEA > 2-3 BM A DAY Duloxetine Hydrochloride (Cymbalta) 30 MG CAPSULE.DR 90 MG PO DAILY MENTAL HEALTH (Reported) Hydrocodone/Acetaminophen (Hydrocodon-Acetaminoph 7.5-300) 7.5 MG-300 MG TABLET 1 TAB PO Q8P PRN PAIN (Reported) Lorazepam (Ativan) 0.5 MG TABLET 0.5 TAB PO BIDP PRN ANXIETY (Reported) Metoprolol Tartrate 25 MG TABLET 0.5 TAB PO BID HEART (Reported) Valacyclovir Hydrochloride (Valtrex) 500 MG TABLET 1 TAB PO AT BEDTIME SHINGLES PREVENTION (Reported) Current Medications: Current Medications Sig/Letty Start time Last Medication Dose Route Stop Time Status Admin Acetaminophen 650 MG Q6P PRN 03/07 1115 AC PO Amiodarone HCl 200 MG DAILY 03/07 1214 AC 03/07 PO 1322 Ampicillin Sodium/ 3,000 MG Q12H 03/07 2230 AC Sulbactam Sodium IV Sodium Chloride 100 ML Ampicillin Sodium/ 3,000 MG Q6 03/07 1200 DC Sulbactam Sodium IV Sodium Chloride 100 ML Ampicillin Sodium/ 0 .STK-MED ONE 03/07 1030 DC Sulbactam Sodium .ROUTE Ampicillin Sodium/ 3,000 MG ONCE ONE 03/07 1015 DC 03/07 Sulbactam Sodium IV 03/07 1044 1034 Sodium Chloride 100 ML Apixaban 2.5 MG BID 03/07 1214 AC 03/07 PO 1322 Aripiprazole 5 MG DAILY 03/07 1214 AC 03/07 PO 1322 Bumetanide 0.5 MG DAILY 03/08 1000 AC PO Duloxetine HCl 90 MG DAILY 03/07 1215 AC 03/07 PO 1322 Lorazepam 0.25 MG BID PRN 03/07 1215 AC PO 03/14 1214 Metoprolol Tartrate 12.5 MG BID 03/07 1215 AC 03/07 PO 1322 Sodium Chloride 1,000 ML Q13H 03/07 1115 AC 03/07 IV 03/08 1314 1146 Sodium Chloride 1,000 ML BOLUS ONE 03/07 0845 DC 03/07 IV 03/07 0944 0850 Valacyclovir HCl 500 MG AT BEDTIME 03/07 2200 AC PO Review of Systems Comments 18 point review of systems performed. Pertinent positive and negative findings are in the HPI, otherwise negative. Past History Travel History Traveled to [place] past 21 day No Medical History Neurological: NONE EENT: NONE Cardiovascular: AFIB, CHF, hypertension, ANGIOPLASTY Respiratory: pneumonia Gastrointestinal: GERD Hepatic: NONE Renal: NONE Musculoskeletal: osteoporosis, CHRONIC RIGHT SHOULDER DEFORMITY, HISTORY OF RIGHT HUMERUS FRACTURE Psychiatric: chronic pain disorder, depression Blood Disorders: PE Cancer(s): NONE Other Medical Hx: Shingles Surgical History Surgical History: ANGIOPLASTY right lower extremity right shoulder surgery Family History Relations & Conditions If Any: MOTHER FH: CAD (coronary artery disease) FATHER FH: CAD (coronary artery disease) Psychosocial History 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 Needs Assist: toileting, bathing. Ambulation: walker IADLs Independent: telephone. Needs Assist: shopping, housework, finances, food prep, transportation, medication admin. Exam & Diagnostic Data Last 24 Hrs of Vital Signs/I&O Vital Signs Date Time Temp Pulse Resp B/P B/P Pulse O2 O2 Flow FiO2 Mean Ox Delivery Rate 03/07 1322 98.9 74 18 121/57 03/07 1322 98.9 74 18 121/57 03/07 1020 98.9 74 18 121/57 96 03/07 0838 95 Nasal 2.0L Cannula 03/07 0722 97.4 79 20 116/67 91 Room Air Room Air Intake & Output 03/07 1600 03/07 0800 03/07 0000 Intake Total Output Total Balance Patient 77 lb 0.01 oz Weight Weight Reported by Patient Measurement Method Physical Exam Other Physical Findings: General - Alert, awake HEENT - normocephalic, atraumatic Cardiovascular - S1, S2 Lungs - rare rhonchi Abdomen - soft, bowel sounds positive, no tenderness Extremities - without edema or cyanosis Last 48 Hrs of Labs/Maxim: Laboratory Tests 03/07/17 1237: Lactic Acid 1.3 03/07/17 1130: Urinalysis LIGHT H, Urine Color YEL, Urine Clarity CLEAR, Urine pH 7.0, Ur Specific [place] 1.010, Urine Protein TRACE H, Urine Ketones NEG, Urine Nitrite NEG, Urine Bilirubin NEG, Urine Urobilinogen 0.2, Ur Leukocyte Esterase NEG, Ur Microscopic SEDIMENT EXAMINED, Urine RBC RARE, Urine WBC RARE, Ur Epithelial Cells MOD H, Urine Bacteria RARE H, Hyaline Casts RARE H, Granular Casts RARE H, Urine Mucus RARE, Urine Hemoglobin NEG, Urine Glucose NEG 03/07/17 0749: Anion Gap 15, Estimated GFR > 60, BUN/Creatinine Ratio 26.3 H, Glucose 113 H, Lactic Acid 3.7 H, Calcium 9.8, Magnesium 1.9, Total Bilirubin 0.8, AST 38 H, ALT 37, Alkaline Phosphatase 129 H, Troponin I 0.02, Total Protein 8.3 H, Albumin 4.3, Globulin 4.0, Albumin/Globulin Ratio 1.1, TSH 1.110, Free T4 2.60 H, CBC w Diff MAN DIFF ORDERED, RBC 4.75, MCV 89.9, MCH 29.8, RDW 14.2, MPV 7.9, Gran % 90.7 H, Lymphocytes % 5.4 L, Monocytes % 3.6, Eosinophils % 0.1, Basophils % 0.2, Absolute Granulocytes 17.6 H, Segmented Neutrophils 86 H, Band Neutrophils 2, Absolute Lymphocytes 1.0 L, Lymphocytes 10 L, Monocytes 2, Absolute Monocytes 0.7 H, Absolute Eosinophils 0, Absolute Basophils 0, Platelet Estimate ADEQUATE, Normocytic RBCs VERIFIED, Normochromic RBCs VERIFIED , PUBS MCHC 33.2 Microbiology 03/07 113 URINE ROUT: Legionella Antigen - COMP 03/07 1130 URINE ROUT: Streptococcus pneumoniae Antigen (M - COMP Assessment/Plan Impression/Plan: Impression 86 year old woman. * Consultation for bronchiectasis and hypoxemia in the setting of aspiration. * Leukocytosis Plan - TRC/Nebs - confusion - per primary team, avoid delirium triggers - aspiration precautions - cont abx, f/u sputum cx - head of bed elevated to 30 degrees - o2 checks to determine future o2 needs - on eliquis for a.fib DVT prophylaxis at all times Consult Acknowledgment - Thank you for your consult request.
--- NOTE | 2017-03-07 14:04 | Admission Certification ---
Admission Certification Certification Statement - As attending physician, I certify that at the time of - admission, based on clinical presentation, severity of - symptoms, need for further diagnostic testing and - therapeutic interventions, and risk of adverse outcomes - without in-hospital treatment, in my clinical assessment, - this patient requires an acute hospital stay for a minimum - of two nights or longer. I have also considered psychsocial - factors such as support system, advanced age, financial - issues, cognitive issues, and failed out-patient treatments, - past re-admission history, safety of patient, and lack of - compliance as applicable. Specific rationale supporting this admission is: Admit to the inpatient medical service for management of her pneumonia. She requires intravenous antibiotic therapy
--- NOTE | 2017-03-07 14:13 | NUR ---
DR MILAN AT BEDSIDE AT THIS TIME
--- NOTE | 2017-03-07 14:17 | NUR ---
PT ATTEMPTING TO PULL OUT IV AT THIS TIME, IV WRAPPED. PT STATING "PLEASE DONT LEAVE ME, PLEASE UNLOCK ALL THIS, WHY DO I NEED THIS IV YOU ARENT EVEN USING IT" SHOWED PT THE IV FLUID BAG AND EXPLAINED TO HER SHE IS GETTING FLUIDS THROUGH THE IV AND THATS WHY SHE NEEDS IT.
--- NOTE | 2017-03-07 14:30 | NUR ---
LIGHTS DIMMED AT THIS TIME FOR COMFORT. PT RESTING ON STRETCHER, CALM AT THIS TIME, EYES CLOSED. REG RESP RATE NOTED. WILL CTM
--- NOTE | 2017-03-07 18:54 | NUR ---
BED ASSIGNMENT [id number]
[2017-03-07 20:06] VITALS: BP 138/70
--- NOTE | 2017-03-08 00:07 | NUR ---
PATIENT ADMITTED TO ROOM # 228-1 AROUND 2024. PATIENT ALERT AND CONFUSED. UNABLE TO FULLY COMPLETE THE ADMISSION PATIENT COULD NOT GIVE ACCURATE INFORMATION. PATIENT'S SON WAS CALLED AND THERE WAS NO ANSWER OR ANSWERING MACHINE. PATIENT DENIES ANY PAIN OR DISCOMFORT AT THE TIME OF ADMISSION. SITTER AT BEDSIDE. CALL LIGHT WITHIN REACH. WILL CONTINUE TO MONITOR.
[2017-03-08 06:43] VITALS: BP 120/70
--- NOTE | 2017-03-08 07:35 | PN- Housestaff ---
CELIO CARDOZO 03/08/17 0735: Subjective Follow-up For: - AMS - Aucte hypoxic respiratory failure 2/2 aspiration PNA Complaints: no complaints Subjective: Patient seen and examined at bedside. She seems very sleepy, reports no complaints. Review of Systems Constitutional: Denies: chills, diaphoresis, fever. EENTM: Denies: visual changes. Cardiovascular: Denies: chest pain, orthopena, palpitations, peripheral edema, syncope. Respiratory: Denies: hemoptysis, short of breath, sputum production. Gastrointestinal: Denies: abdominal pain, constipation, diarrhea, nausea, vomiting. Genitourinary: Reports: no symptoms. Neurological/Psychological: Denies: headache, numbness, tingling, tremors. Objective Last 24 Hrs of Vital Signs/I&O Vital Signs Date Time Temp Pulse Resp B/P B/P Pulse O2 O2 Flow FiO2 Mean Ox Delivery Rate 03/08 0643 97.6 77 20 120/70 92 Nasal 3.0L Cannula 03/07 2006 97.6 72 24 138/70 94 Nasal 3.0L Cannula 03/07 2000 97.6 03/07 1847 100.3 79 20 150/74 91 Nasal 3.0L Cannula 03/07 1355 98.0 84 20 189/86 93 Nasal 2.0L Cannula 03/07 1322 98.9 74 18 121/57 03/07 1322 98.9 74 18 121/57 03/07 1020 98.9 74 18 121/57 96 03/07 0838 95 Nasal 2.0L Cannula Intake & Output 03/08 0800 03/08 0000 03/07 1600 Intake Total 160 Output Total Balance 160 Intake, IV 100 Intake, Oral 60 Physical Exam General Appearance: Cooperative, No Acute Distress, drowsy and lethargic HEENT: Atraumatic, PERRLA, EOMI Neck: Supple Cardiovascular: Normal S1, Normal S2, No Murmurs Lungs: Clear to Auscultation, Normal Air Movement Abdomen: Normal Bowel Sounds, Soft, No Tenderness Neurological: Normal Speech, Strength at 5/5 X4 Ext, Normal Tone, Sensation Intact, Cranial Nerves 3-12 NL, Reflexes 2+ Extremities: No Edema, Normal Pulses, No Tenderness/Swelling Current Medications: Current Medications Sig/Letty Start time Last Medication Dose Route Stop Time Status Admin Acetaminophen 0 .STK-MED ONE 03/07 1901 DC PO Acetaminophen 650 MG Q6P PRN 03/07 1115 03/07 PO 1859 Acetaminophen/ 1.5 TAB Q4-6 PRN PRN 03/07 1500 AC Hydrocodone Bitart PO Albuterol Sulfate 2 PUF Q4-6 PRN PRN 03/07 1500 AC INH Amiodarone HCl 200 MG DAILY 03/07 1214 AC 03/07 PO 1322 Ampicillin Sodium/ 3,000 MG Q12H 03/07 2230 AC 03/07 Sulbactam Sodium IV 2210 Sodium Chloride 100 ML Ampicillin Sodium/ 3,000 MG Q6 03/07 1200 DC Sulbactam Sodium IV Sodium Chloride 100 ML Ampicillin Sodium/ 0 .STK-MED ONE 03/07 1030 DC Sulbactam Sodium .ROUTE Ampicillin Sodium/ 3,000 MG ONCE ONE 03/07 1015 DC 03/07 Sulbactam Sodium IV 03/07 1044 1034 Sodium Chloride 100 ML Apixaban 2.5 MG BID 03/07 1214 AC 03/07 PO 2212 Aripiprazole 5 MG DAILY 03/07 1214 AC 03/07 PO 1322 Bumetanide 0.5 MG DAILY 03/08 1000 AC PO Duloxetine HCl 90 MG DAILY 03/07 1215 AC 03/07 PO 1322 Lorazepam 0.25 MG BID PRN 03/07 1215 AC PO 03/14 1214 Metoprolol Tartrate 12.5 MG BID 03/07 1215 AC 03/07 PO 2213 Sodium Chloride 1,000 ML Q13H 03/07 1115 AC 03/07 IV 03/08 1314 2226 Sodium Chloride 1,000 ML BOLUS ONE 03/07 0845 DC 03/07 IV 03/07 0944 0850 Valacyclovir HCl 500 MG AT BEDTIME 03/07 2200 AC 03/07 PO 2226 Last 24 Hrs of Lab/Maxim Results Last 24 Hrs of Labs/Mics: Laboratory Tests 03/07/17 1550: pH 7.50 H, pCO2 30 L, pO2 69 L, HCO3 23, ABG O2 Sat (Measured) 92.0 L, P-50 (Temp Corrected) N, Carboxyhemoglobin 1.1 L, O2 Concentration % 2L, Temperature 98.0, O2 Delivery Method NC, Phlebotomy Draw Site RIGHT RADIAL 03/07/17 1237: Lactic Acid 1.3 03/07/17 1130: Urinalysis LIGHT H, Urine Color YEL, Urine Clarity CLEAR, Urine pH 7.0, Ur Specific [place] 1.010, Urine Protein TRACE H, Urine Ketones NEG, Urine Nitrite NEG, Urine Bilirubin NEG, Urine Urobilinogen 0.2, Ur Leukocyte Esterase NEG, Ur Microscopic SEDIMENT EXAMINED, Urine RBC RARE, Urine WBC RARE, Ur Epithelial Cells MOD H, Urine Bacteria RARE H, Hyaline Casts RARE H, Granular Casts RARE H, Urine Mucus RARE, Urine Hemoglobin NEG, Urine Glucose NEG 03/07/17 0749: Anion Gap 15, Estimated GFR > 60, BUN/Creatinine Ratio 26.3 H, Glucose 113 H, Lactic Acid 3.7 H, Calcium 9.8, Magnesium 1.9, Total Bilirubin 0.8, AST 38 H, ALT 37, Alkaline Phosphatase 129 H, Troponin I 0.02, C-Reactive Prot, Quant 7.8 H, Total Protein 8.3 H, Albumin 4.3, Globulin 4.0, Albumin/Globulin Ratio 1.1, TSH 1.110, Free T4 2.60 H, Total T3 1.03, CBC w Diff MAN DIFF ORDERED, RBC 4.75 , MCV 89.9, MCH 29.8, RDW 14.2, MPV 7.9, Gran % 90.7 H, Lymphocytes % 5.4 L, Monocytes % 3.6, Eosinophils % 0.1, Basophils % 0.2, Absolute Granulocytes 17.6 H, Segmented Neutrophils 86 H, Band Neutrophils 2, Absolute Lymphocytes 1.0 L, Lymphocytes 10 L, Monocytes 2, Absolute Monocytes 0.7 H, Absolute Eosinophils 0, Absolute Basophils 0, Platelet Estimate ADEQUATE, Normocytic RBCs VERIFIED, Normochromic RBCs VERIFIED, PUBS MCHC 33.2 Microbiology 03/08 0225 BLOOD: Blood Culture - RECD 03/07 1130 URINE ROUT: Urine Culture - RECD 03/07 1130 URINE ROUT: Legionella Antigen - COMP 03/07 1130 URINE ROUT: Streptococcus pneumoniae Antigen (M - COMP 03/07 0831 BLOOD: Blood Culture - RECD 03/07 08 BLOOD: Blood Culture - CAN Cancelled: SPECIMEN [place] RECEIVED Assessment/Plan Assessment: 86-year-old lady with a PMH of stage I diastolic dysfunction (echo 2013 with LVEF 60-65%), pulmonary hypertension (RV systolic pressure > 55 mmHg), atrial fibrillation on Eliquis, anxiety, depression, abdominal aortic aneurysm, osteoporosis of right shoulder, recent diagnosis of bronchiectasis and pneumonia sputum culture positive for ESBL inOctober 2016, readmission in November 2016 for diarhhea, found to be negative for C. Diff on PCR, with symptoms thought to be 2 /2 [place] who presents to the ED today with c/o back pain, and altered mental status, difficulty breathing, chest pain and purulent productive cough at home. Vitals at the time of admission blood pressure 121/57, respiratory rate of 18, pulse 74, afebrile saturating 91% on room air and was placed on 2.0 L of oxygen via nasal cannula after which her saturations improved to 96%. Labs pertinent for leukocytosis with a white blood cell count of 19,400, normal H&H of 14.2/42.7, normal MCV of 89.8 with platelet count 280,000. Serum chemistries revealed a sodium of 139, potassium of 3.8, bicarbonate of 26, BUN 21 with a creatinine of 0.8. Serum glucose elevated to 113, lactic acid elevated at 3.7. LFTs revealed total bili of 0.8 AST/ALT of 38/37, alkaline phosphatase of 129, first set of troponin 0.02. UA not received. Chest x-ray was done which showed stable right upper lobe airspace opacity, no acute interval change EKG revealed: NSR, HR: 66, ?LAD, ST-T depressions in V4-V6 unchanged; poor R wave progression, LVH In the ER she received Unasyn 3000 mg IV 1 and a normal saline bolus of 1000ml x1. Assessment and plan #Acute hypoxic respiratory failure - Most likely 2/2 aspiration pneumonia - Continue to titrate oxygen down to maintain saturations > 94%. - Of note, she has grown ESBL E.Cloi in her LRC in the past, sensitive to Unasyn and Augmentin, resistant to cephalosporins. For now, continue Unasyn 3000mg Q12 IV renally adjusted to cover for aspiration PNA and ESBL. - F/U lower respiratory culture, blood cultures x2 - She underwent a swallow eval and is on mechanical soft and nectar thick - Continue to maintain on sapiration precautions - TRC/Nebs as needed - Urinary antigen for Legionella and Strep pneumonia were negative - Continue to provide supplemental oxygen via nasal cannula to maintain sats > 94%. - F/U rces from Pulm #Altered Mental Status - Improving - Will avoid opiods and place her on Lidoderm patch as well as Toradol. - Conitnue to monitor and avoid delirium triggers including constipation, re- oirent her to surroundings. #Lactic acidosis - Resolved - 2/2 infection #Afib on ELiquis - Continue on Eliquis 2.5mg BID, Lopressor 12.5mg BID PO, and Amiodarone 200mg PO daily, Bumex # Depression and anxiety - Continue on Duloxetine 90mg daily, Abilify 5mg daily, Lorazepam 0.25mg BID PO PRN - Hx of encephalitis - On prophylactic Valtrex 500mg PO at betdtime - DVT prophylaxis - On Eliquis - Diet - Mechanical soft and nectar - Code status - DNR/DNI Problem List: 1. Aspiration pneumonia 2. History of ESBL E. coli infection Pain Ratin Pain Location: n/a Pain Goal: Remain pain free Pain Plan: lidodrrm patch, toradol Tomorrow's Labs & Rationales: n/a Consulting Request: Consulting Specialty: Pulmonary Disease BENJI HENDRICKS,[facility] 03/08/17 1156: Attending MD Review Statement Attending Statement Attending MD Statement: examined this patient, discuss w/resident/PA/MAST MAKER, agreed w/resident/PA/MAST MAKER, discussed with family, reviewed EMR data (avail), discussed with nursing, discussed with case mgmt, amended to note Attending Assessment/Plan: Patient seen and is resting comfortably and not in acute. She was confuse overnight but appears to be doing better today. Her aide present at her bedside. She denies cough or shortness of breath at rest. She remains afebrile and hemodynamically stable. On examination she has fair entry bilaterally and lungs are clear to auscultation. She has no peripheral edema or signs of volume overload. Patient was very drowsy when evaluated this morning. She is on Vicodin for pain control at home but did not receive any dose of 5 hospital. Secondary to the eighth patient has not been compliant with thickened fluid diet at home. She has been drinking thin liquids. This is likely contributing to her ongoing aspiration. We did debt counselor the patient and the aid about the need of ensuring compliance with diet recommendations. Recommendations: -Continue IV antibiotic therapy. White cell count is trending downwards. -Repeat CBC and serum chemistry in 48 hours. -Mobilize patient. -Continue to maintain aspiration precautions at all times. -Recommend pain control with Lidoderm patch and Toradol. Hold off Vicodin for now.
[2017-03-08 08:39] LABS: ABSOLUTE BASOPHIL COUNT 0 /CUMM (0.0-0.2); ABSOLUTE LYMPH COUNT 1.1 /CUMM (1.2-3.4); ABSOLUTE MONOCYTE COUNT 0.6 /CUMM (0.10-0.60); BASOPHIL % 0.3 % (0.0-2.0); MEAN PLATELET VOLUME 7.9 FL (7.4-10.4)
[2017-03-08 08:55] LABS: ABSOLUTE EOSINOPHIL COUNT 0.1 /CUMM (0.0-0.7); ABSOLUTE GRANULOCYTE CT 10.2 /CUMM (1.4-6.5); EOSINOPHIL % 0.9 % (0-5); MEAN CORPUSCULAR HGB 29.8 PG (27.0-31.0); MEAN CORPUSCULAR HGB CONC 32.7 G/DL (33.0-37.0); MEAN CORPUSCULAR VOLUME 91.1 FL (81.0-99.0); PLATELET COUNT 236 /CUMM (130-400); RBC DISTRIBUTION WIDTH 14.3 % (11.5-14.5); RED BLOOD CELL CT 3.96 /CUMM (4.20-5.40)
[2017-03-08 09:21] LABS: HEMATOCRIT 36.1 % (37-47)
[2017-03-08 09:48] LABS: GRANULOCYTE % 85.2 % (42.2-75.2)
--- NOTE | 2017-03-08 10:48 | PN- Pulmonary ---
Subjective HPI/Critical Care Issues: pt seen and examined afebrile saturating 92% on 3LNC Objective Current Medications: Current Medications Sig/Letty Start time Last Medication Dose Route Stop Time Status Admin Acetaminophen 0 .STK-MED ONE 03/07 1901 DC PO Acetaminophen 650 MG Q6P PRN 03/07 1115 AC 03/07 PO 1859 Acetaminophen/ 1.5 TAB Q4-6 PRN PRN 03/07 1500 DC Hydrocodone Bitart PO Albuterol Sulfate 2 PUF Q4-6 PRN PRN 03/07 1500 AC INH Amiodarone HCl 200 MG DAILY 03/07 1214 AC 03/08 PO 0958 Ampicillin Sodium/ 3,000 MG Q12H 03/07 2230 AC 03/08 Sulbactam Sodium IV 0957 Sodium Chloride 100 ML Ampicillin Sodium/ 3,000 MG Q6 03/07 1200 DC Sulbactam Sodium IV Sodium Chloride 100 ML Apixaban 2.5 MG BID 03/07 1214 AC 03/08 PO 0958 Aripiprazole 5 MG DAILY 03/07 1214 AC 03/08 PO 0959 Bumetanide 0.5 MG DAILY 03/08 1000 AC 03/08 PO 0959 Duloxetine HCl 90 MG DAILY 03/07 1215 AC 03/08 PO 0958 Ketorolac 15 MG BID PRN 03/08 0945 AC Tromethamine IV 03/11 0944 Lidocaine 1 PAT DAILY 03/08 1000 AC EXT Lorazepam 0.25 MG BID PRN 03/07 1215 AC PO 03/14 1214 Metoprolol Tartrate 12.5 MG BID 03/07 1215 AC 03/08 PO 0958 Sodium Chloride 1,000 ML Q13H 03/07 1115 AC 03/07 IV 03/08 1314 2226 Valacyclovir HCl 500 MG AT BEDTIME 03/07 2200 AC 03/07 PO 2226 Vital Signs & I&O Last 24 Hrs of Vitals and I&O: Vital Signs Date Time Temp Pulse Resp B/P B/P Pulse O2 O2 Flow FiO2 Mean Ox Delivery Rate 03/08 0958 110/60 03/08 0958 110/60 03/08 0643 97.6 77 20 120/70 92 Nasal 3.0L Cannula 03/07 2006 97.6 72 24 138/70 94 Nasal 3.0L Cannula 03/07 2000 97.6 07/10 1847 100.3 79 20 150/74 91 Nasal 3.0L Cannula 03/07 1355 98.0 84 20 189/86 93 Nasal 2.0L Cannula 03/07 1322 98.9 74 18 121/57 03/07 1322 98.9 74 18 121/57 Intake & Output 03/08 1600 03/08 0800 03/08 0000 Intake Total 160 Output Total Balance 160 Intake, IV 100 Intake, Oral 60 Exam Other Physical Findings: General - Alert, awake HEENT - normocephalic, atraumatic Cardiovascular - S1, S2 Lungs - rare rhonchi Abdomen - soft, bowel sounds positive, no tenderness Extremities - without edema or cyanosis Results Last 24 Hrs of Lab Results: Laboratory Tests 03/08/17 0715: Hemoglobin A1c Pending, CBC w Diff NO MAN DIFF REQ, RBC 3.96 L, MCV 91.1, MCH 29.8, RDW 14.3, MPV 7.9, Gran % 85.2 H, Lymphocytes % 8.8 L, Monocytes % 4.8, Eosinophils % 0.9, Basophils % 0.3, Absolute Granulocytes 10.2 H, Absolute Lymphocytes 1.1 L, Absolute Monocytes 0.6, Absolute Eosinophils 0.1, Absolute Basophils 0, PUBS MCHC 32.7 L 03/07/17 1550: pH 7.50 H, pCO2 30 L, pO2 69 L, HCO3 23, ABG O2 Sat (Measured) 92.0 L, P-50 (Temp Corrected) N, Carboxyhemoglobin 1.1 L, O2 Concentration % 2L, Temperature 98.0, O2 Delivery Method NC, Phlebotomy Draw Site RIGHT RADIAL 03/07/17 1237: Lactic Acid 1.3 03/07/17 1130: Urinalysis LIGHT H, Urine Color YEL, Urine Clarity CLEAR, Urine pH 7.0, Ur Specific [place] 1.010, Urine Protein TRACE H, Urine Ketones NEG, Urine Nitrite NEG, Urine Bilirubin NEG, Urine Urobilinogen 0.2, Ur Leukocyte Esterase NEG, Ur Microscopic SEDIMENT EXAMINED, Urine RBC RARE, Urine WBC RARE, Ur Epithelial Cells MOD H, Urine Bacteria RARE H, Hyaline Casts RARE H, Granular Casts RARE H, Urine Mucus RARE, Urine Hemoglobin NEG, Urine Glucose NEG Impression/Plan Impression/Plan Impression/Plan: Impression 86 year old woman. * Consultation for bronchiectasis and hypoxemia in the setting of aspiration. * Leukocytosis improving Plan - TRC/Nebs - confusion - per primary team, avoid delirium triggers - aspiration precautions - cont abx, f/u sputum cx - head of bed elevated to 30 degrees - o2 checks to determine future o2 needs - on eliquis for a.fib DVT prophylaxis at all times
[2017-03-08 14:05] VITALS: BP 100/60
[2017-03-08 21:49] VITALS: BP 110/62
--- NOTE | 2017-03-09 02:46 | Event Note ---
Event Note Event Note: S: MD called because patient threatening to leave: B: Pt is a 86 yo F admitted for acute hypoxic respiratory failure secondary to aspiration pneumonia versus ESBL Escherichia coli and encephalopathy secondary to pneumonia versus hypoxia. A/R:The resident and I went to see the patient. The patient's vital signs are stable temperature 98.2, pulse 68, respiratory 20, blood pressure 110/60, and pulse ox 93 on room air. Patient alert to person and place however she thinks the month is August. She is claiming delusions of the nursing staff and the sitter having knives and threatening to kill her. She is threatening to leave. She states she wants a phone to call her son or to call the police to get her out of the hospital. We tried to calm her down, re-orient the patient, and ensured she was in a safe environment. However, she was still threatening to leave. We ordered 0.5 mg Haldol for the patient to calm her agitation and delusions.
--- NOTE | 2017-03-09 03:03 | NUR ---
AT 0200, PATIENT BECAME DELUSIONAL AND VISUAL HELLUSINATION WAS NOTED. PATIENT STATED "THE SITTER CHAD HAD 2 SILVER KNIVES" AND SHE WANTED HER OUT OF THE ROOM. PATIENT ALSO STATED SHE WAS SEEING PEOPLE BY THE DOOR AND ARE TRYING TO HURT HER. PATIENT WAS DEMANDING A PHONE SO SHE CAN CALL THE POLICE. SHE ALSO WAS TRYING TO GET OUT OF BED TO GO HOME. MD KELSIE LACY WAS MADE AWARE. MD IGLESIAS AND PEPE WALTON CAME TO EXAMIN THE PATIENT. 0.5 MG HALDOL WAS ORDERED AND ADMINISTERED VIA IM. PATIENT AT THIS TIME IS CALMER AND RESTING COMFORTABLY IN BED. SITTER BY BED SIDE AND SAFETY PRECAUTIONS ARE MAINTAINED. WILL CONTINUE TO MONITOR.
[2017-03-09 06:35] VITALS: BP 106/60
--- NOTE | 2017-03-09 07:29 | PN- Housestaff ---
CELIO CARDOZO 03/09/17 0729: Subjective Follow-up For: - Acute hypoxic respiratory failure 2/2 aspiration PNA. - Encephalopathy 2/2 aspiration PNA Complaints: no complaints Subjective: Patient seen and examined at bedside. She had an episode of sundowning last night and was given Haldol. She states she had a rough night. Currently denies any shortness breath, chest discomofrt and is oriented to place and person. Of note she continues to remain afebrile and is now down to 2.0 liters Review of Systems Constitutional: Denies: chills, fever, malaise. EENTM: Denies: visual changes. Cardiovascular: Denies: chest pain, orthopena, palpitations, peripheral edema. Respiratory: Denies: cough, hemoptysis, orthopnea, short of breath, sputum production, wheezing. Gastrointestinal: Denies: abdominal pain, constipation, diarrhea, nausea, vomiting. Genitourinary: Reports: no symptoms. Musculoskeletal: Reports: back pain. Neurological/Psychological: Denies: headache, numbness, tingling, tremors. Objective Last 24 Hrs of Vital Signs/I&O Vital Signs Date Time Temp Pulse Resp B/P B/P Pulse O2 O2 Flow FiO2 Mean Ox Delivery Rate 03/09 0635 97.5 74 20 106/60 91 Room Air 03/09 0000 Nasal 3.0L Cannula 03/08 2155 68 110/62 03/08 2149 98.2 68 20 110/62 93 Nasal 3.0L Cannula 03/08 1600 Nasal 3.0L Cannula 03/08 1405 97.9 80 20 100/60 94 Nasal 3.0L Cannula 03/08 1339 Nasal 3.0L Cannula 03/08 0958 110/60 03/08 0958 110/60 03/08 0800 92 Nasal 2.0L Cannula Intake & Output 03/09 0800 03/09 0000 03/08 1600 Intake Total 480 750 Output Total Balance 480 750 Intake, IV 300 Intake, Oral 180 750 Number 1 Bowel Movements Physical Exam General Appearance: Alert, Cooperative, No Acute Distress, oriented to perosn and place HEENT: Atraumatic, PERRLA, EOMI, Mucous Membr. moist/pink Neck: Supple, No JVD, No LAD Cardiovascular: Normal S1, Normal S2, No Murmurs Lungs: Clear to Auscultation, Normal Air Movement Abdomen: Normal Bowel Sounds, Soft, No Tenderness Neurological: Normal Speech, Strength at 5/5 X4 Ext, Normal Tone, Sensation Intact, Cranial Nerves 3-12 NL, Reflexes 2+ Extremities: No Edema, Normal Pulses, No Tenderness/Swelling Current Medications: Current Medications Sig/Letty Start time Last Medication Dose Route Stop Time Status Admin Acetaminophen 650 MG Q6P PRN 03/07 1115 AC 03/07 PO 1859 Acetaminophen/ 1.5 TAB Q4-6 PRN PRN 03/07 1500 DC Hydrocodone Bitart PO Albuterol Sulfate 2 PUF Q4-6 PRN PRN 03/07 1500 AC INH Amiodarone HCl 200 MG DAILY 03/07 1214 AC 03/08 PO 0958 Ampicillin Sodium/ 3,000 MG Q12H 03/07 2230 AC 03/08 Sulbactam Sodium IV 2155 Sodium Chloride 100 ML Apixaban 2.5 MG BID 03/07 1214 AC 03/08 PO 2155 Aripiprazole 5 MG DAILY 03/07 1214 AC 03/08 PO 0959 Bumetanide 0.5 MG DAILY 03/08 1000 AC 03/08 PO 0959 Docusate Sodium 100 MG DAILY NEEDED PRN 03/08 1800 AC PO Duloxetine HCl 90 MG DAILY 03/07 1215 AC 03/08 PO 0958 Haloperidol 0.5 MG ONCE ONE 03/09 0245 DC 03/09 IM 03/09 0246 0239 Ketorolac 15 MG BID PRN 03/08 0945 AC Tromethamine IV 03/11 0944 Lidocaine 1 PAT DAILY 03/08 1000 AC 03/08 EXT 1154 Lorazepam 0.25 MG BID PRN 03/07 1215 AC PO 03/14 1214 Metoprolol Tartrate 12.5 MG BID 03/07 1215 AC 03/08 PO 2155 Patient Medication 1 ED .STK-MED ONE 03/08 1414 DC Teaching ED 03/08 1415 Sodium Chloride 1,000 ML Q13H 03/07 1115 DC 03/07 IV 03/08 1314 2226 Valacyclovir HCl 500 MG AT BEDTIME 03/07 2200 AC 03/08 PO 2155 Last 24 Hrs of Lab/Maxim Results Last 24 Hrs of Labs/Mics: Laboratory Tests 03/08/17 1059: Anion Gap 10, Estimated GFR > 60, BUN/Creatinine Ratio 20.0 Assessment/Plan Assessment: 86-year-old lady with a PMH of stage I diastolic dysfunction (echo 2013 with LVEF 60-65%), pulmonary hypertension (RV systolic pressure > 55 mmHg), atrial fibrillation on Eliquis, anxiety, depression, abdominal aortic aneurysm, osteoporosis of right shoulder, recent diagnosis of bronchiectasis and pneumonia sputum culture positive for ESBL inOctober 2016, readmission in November 2016 for diarhhea, found to be negative for C. Diff on PCR, with symptoms thought to be 2 /2 Movantik who presents to the ED today with c/o back pain, and altered mental status, difficulty breathing, chest pain and purulent productive cough at home. Vitals at the time of admission blood pressure 121/57, respiratory rate of 18, pulse 74, afebrile saturating 91% on room air and was placed on 2.0 L of oxygen via nasal cannula after which her saturations improved to 96%. Labs pertinent for leukocytosis with a white blood cell count of 19,400, normal H&H of 14.2/42.7, normal MCV of 89.8 with platelet count 280,000. Serum chemistries revealed a sodium of 139, potassium of 3.8, bicarbonate of 26, BUN 21 with a creatinine of 0.8. Serum glucose elevated to 113, lactic acid elevated at 3.7. LFTs revealed total bili of 0.8 AST/ALT of 38/37, alkaline phosphatase of 129, first set of troponin 0.02. UA not received. Chest x-ray was done which showed stable right upper lobe airspace opacity, no acute interval change EKG revealed: NSR, HR: 66, ?LAD, ST-T depressions in V4-V6 unchanged; poor R wave progression, LVH In the ER she received Unasyn 3000 mg IV 1 and a normal saline bolus of 1000ml x1. Assessment and plan #Acute hypoxic respiratory failure - 2/2 aspiration pneumonia - Continue to titrate oxygen down to maintain saturations > 94%. - Continue Unasyn 3000mg Q12 IV renally adjusted to cover for aspiration PNA and ESBL with transition to PO Augmentin on discharge. - F/U lower respiratory culture, blood cultures x2 - She underwent a swallow eval and is on mechanical soft and nectar thick - Continue to maintain on aspiration precautions - TRC/Nebs as needed - Urinary antigen for Legionella and Strep pneumonia were negative - Continue to titrate oxygen to room air to maintain sats > 94%. - F/U rces from Pulm #Toxic encepahlopathy - 2/2 aspiration pneumonia - Improving - Continue to avoid opiods and continue Lidoderm patch as well as Toradol. - Continue to monitor and avoid delirium triggers including constipation, re- oirent her to surroundings. #Lactic acidosis - Resolved - 2/2 infection #Afib on ELiquis - Continue on Eliquis 2.5mg BID, Lopressor 12.5mg BID PO, and Amiodarone 200mg PO daily, Bumex # Depression and anxiety - Continue on Duloxetine 90mg daily, Abilify 5mg daily, Lorazepam 0.25mg BID PO PRN - Hx of encephalitis - On prophylactic Valtrex 500mg PO at betdtime - DVT prophylaxis - On Eliquis - Diet - Mechanical soft and nectar - Code status - DNR/DNI Problem List: 1. Aspiration pneumonia 2. History of ESBL E. coli infection Pain Ratin Pain Location: back Pain Goal: Remain pain free Pain Plan: lidoderm patch, toradol Tomorrow's Labs & Rationales: cbc - monitor WBC, BEp- serum creatinine Consulting Request: Consulting Specialty: Pulmonary Disease BENJI HENDRICKS,ROSHAN 03/09/17 1218: Attending MD Review Statement Attending Statement Attending MD Statement: examined this patient, discuss w/resident/PA/CANCER GENETICS ASSISTANT, agreed w/resident/PA/CANCER GENETICS ASSISTANT, reviewed EMR data (avail), discussed with nursing, discussed with case mgmt, amended to note Attending Assessment/Plan: Patient seen and examined. Resting comfortably and not in acute distress. She continues have periods of confusion on and off. Alkalosis family this is baseline for the patient. This morning she is alert and oriented 3. She is listening better denying chest pain shortness of breath. She is saturating 100% on 3 L of oxygen. On examination she has diminished breath sounds bilaterally but with no added sounds. Recommendations: -Weaned off oxygen supplementation as tolerated. -Check ambulatory pulse oximetry. -Transition to oral antibiotic therapy tomorrow to complete 10 days of treatment -Anticipate discharge home tomorrow. Modified diet as recommended by the speech therapist.-
--- NOTE | 2017-03-09 11:52 | NUR ---
PATIENT ON ROOM AIR AT THIS TIME. SATURATING 92-94%. NO SIGNS OF DISTRESS. RR 18. HR 68.
--- NOTE | 2017-03-09 12:10 | PN- Pulmonary ---
Subjective HPI/Critical Care Issues: pt seen and examined was delirious overnight awake and alert this morning seems to be comfortable without respiratory complaints other than a chronic cough Objective Current Medications: Current Medications Sig/Letty Start time Last Medication Dose Route Stop Time Status Admin Acetaminophen 650 MG Q6P PRN 03/07 1115 AC 03/07 PO 1859 Albuterol Sulfate 2 PUF Q4-6 PRN PRN 03/07 1500 AC INH Amiodarone HCl 200 MG DAILY 03/07 1214 AC 03/09 PO 0827 Ampicillin Sodium/ 3,000 MG Q12H 03/07 2230 AC 03/09 Sulbactam Sodium IV 0826 Sodium Chloride 100 ML Apixaban 2.5 MG BID 03/07 1214 AC 03/09 PO 0827 Aripiprazole 5 MG DAILY 03/07 1214 AC 03/09 PO 0827 Bumetanide 0.5 MG DAILY 03/08 1000 AC 03/09 PO 0827 Docusate Sodium 100 MG DAILY NEEDED PRN 03/08 1800 AC PO Duloxetine HCl 90 MG DAILY 03/07 1215 AC 03/09 PO 0827 Haloperidol 0.5 MG ONCE ONE 03/09 0245 DC 03/09 IM 03/09 0246 0239 Ketorolac 15 MG BID PRN 03/08 0945 AC Tromethamine IV 03/11 0944 Lidocaine 1 PAT DAILY 03/08 1000 AC 03/09 EXT 0826 Lorazepam 0.25 MG BID PRN 03/07 1215 AC PO 03/14 1214 Melatonin 5 MG ONCE ONE 03/09 0930 DC 03/09 PO 03/09 0931 1006 Metoprolol Tartrate 12.5 MG BID 03/07 1215 AC 03/09 PO 0827 Patient Medication 1 ED .STK-MED ONE 03/08 1414 MD Teaching ED 03/08 1415 Sodium Chloride 1,000 ML Q13H 03/07 1115 DC 03/07 IV 03/08 1314 2226 Valacyclovir HCl 500 MG AT BEDTIME 03/07 2200 AC 03/08 PO 2155 Vital Signs & I&O Last 24 Hrs of Vitals and I&O: Vital Signs Date Time Temp Pulse Resp B/P B/P Pulse O2 O2 Flow FiO2 Mean Ox Delivery Rate 03/09 827 110/62 03/09 0827 110/62 03/09 0800 92 Nasal 2.0L Cannula 03/09 0635 97.5 74 20 106/60 91 Room Air 03/09 0000 Nasal 3.0L Cannula 03/08 2155 68 110/62 03/08 2149 98.2 68 20 110/62 93 Nasal 3.0L Cannula 03/08 1600 Nasal 3.0L Cannula 03/08 1405 97.9 80 20 100/60 94 Nasal 3.0L Cannula 03/08 1339 Nasal 3.0L Cannula Intake & Output 03/09 1600 03/09 0800 03/09 0000 Intake Total 480 Output Total Balance 480 Intake, IV 300 Intake, Oral 180 Number 1 Bowel Movements Patient 77 lb 0.01 oz Weight Exam Other Physical Findings: General - Alert, awake HEENT - normocephalic, atraumatic Cardiovascular - S1, S2 Lungs - rare rhonchi Abdomen - soft, bowel sounds positive, no tenderness Extremities - without edema or cyanosis Impression/Plan Impression/Plan Impression/Plan: Impression 86 year old woman. * Consultation for bronchiectasis and hypoxemia in the setting of aspiration. * Leukocytosis improving Plan - TRC/Nebs - avoid delirium triggers - aspiration precautions - cont abx, f/u sputum cx, monitor leukocytosis - head of bed elevated to 30 degrees - o2 checks to determine future o2 needs - on eliquis for a.fib DVT prophylaxis at all times
[2017-03-09 15:02] VITALS: BP 162/70
[2017-03-09] MEDS ORDERED: AUGMENTIN 875-1 EACH PO (19:29)
--- NOTE | 2017-03-09 19:33 | Patient Discharge Instructions ---
Discharge Instructions General Discharge Information You were seen/treated for: - Acute hypoxic respiratory failure secondary to aspiration pNA - Encephalopathy 2/2 aspiration PNA Special Instructions: Please follow up with your primary care phsyician in one week. Please complete the ocurse of antibitocs as directed and maintain aspiration precautions at all times while feeding. Please have a repeat BEP in one week to check serum potassium. Diet Recommended Diet: Regular (Mecahnical soft; nectar thick) Activity Activity Self Limited: Yes Acute Coronary Syndrome Inclusion Criteria At DC or during hospital stay patient has or had the following: ACS DIAGNOSIS No Discharge Core Measures Meds if any: Prescribed or Continued at Discharge Meds if any: NOT Prescribed or Continued at Discharge Congestive Heart Failure Inclusion Criteria At DC or during hospital stay patient has or had the following: CHF DIAGNOSIS No Discharge Core Measures Meds if any: Prescribed or Continued at Discharge Meds if any: NOT Prescribed or Continued at Discharge Cerebrovascular accident Inclusion Criteria At DC or during hospital stay patient has or had the following: CVA/TIA Diagnosis No Discharge Core Measures Meds if any: Prescribed or Continued at Discharge Meds if any: NOT Prescribed or Continued at Discharge Venous thromboembolism Inclusion Criteria VTE Diagnosis No VTE Type NONE VTE Confirmed by (Test) NONE Discharge Core Measures - Per Current guidelines, there needs to be overlap - treatment for the first 5 days of Warfarin therapy. - If discharged on Warfarin prior to 5 days of - overlap therapy, the patient will need to be - assessed for post discharge needs including - *Post discharge parental anticoagulation - *Warfarin and/or parental anticoagulation education - *Follow up date to check INR post discharge At least 5 days overlap therapy as Inpatient No Meds if any: Prescribed or Continued at Discharge Note: Overlap Therapy is Warfarin and Anticoagulant Meds if any: NOT Prescribed or Continued at Discharge
[2017-03-09 22:54] VITALS: BP 150/74
[2017-03-10 06:00] VITALS: BP 152/80
--- NOTE | 2017-03-10 07:22 | PN- Housestaff ---
See Addendum Subjective Follow-up For: - Acute hypoxic respiratory failure 2/2 aspiration PNA. - Encephalopathy 2/2 aspiration PNA Complaints: no complaints Subjective: Patient seen and examined at bedside. She offers no compalintsand states that she slept well last night, is eager on going home today. Ofnotargelia sh eis on RA, saturating 93%. Review of Systems Constitutional: Denies: chills, fever, malaise, weakness. EENTM: Denies: visual changes. Cardiovascular: Denies: chest pain, palpitations. Respiratory: Denies: cough, hemoptysis, short of breath, sputum production. Gastrointestinal: Denies: abdominal pain, nausea, vomiting. Genitourinary: Reports: no symptoms. Musculoskeletal: Reports: no symptoms. Neurological/Psychological: Denies: headache, numbness, tingling, tremors. Objective Last 24 Hrs of Vital Signs/I&O Vital Signs Date Time Temp Pulse Resp B/P B/P Pulse O2 O2 Flow FiO2 Mean Ox Delivery Rate 03/10 0600 98.0 73 20 152/80 93 Room Air 03/09 2254 98.5 89 20 150/74 92 Room Air 03/09 2218 89 150/74 03/09 1600 Room Air 03/09 1502 97.3 82 20 162/70 93 Room Air 03/09 0827 110/62 03/09 0827 110/62 03/09 0800 92 Nasal 2.0L Cannula Intake & Output 03/10 0800 03/10 0000 03/09 1600 Intake Total 320 1800 Output Total 250 300 700 Balance -769 83 0944 Intake, IV 140 Intake, Oral 180 1800 Number 0 1 Bowel Movements Output, Urine 250 300 700 Patient 77 lb 0.01 oz Weight Physical Exam General Appearance: Alert, Cooperative, No Acute Distress, oriented to place person and time HEENT: Atraumatic, PERRLA, EOMI, Mucous Membr. moist/pink Neck: Supple, No JVD, No thryomegaly, +2 Carotid Pulse wo Bruit, No LAD Cardiovascular: Regular Rate, Normal S1, Normal S2, No Murmurs Lungs: Clear to Auscultation, Normal Air Movement Abdomen: Normal Bowel Sounds, Soft, No Tenderness Neurological: Normal Speech, Strength at 5/5 X4 Ext, Normal Tone, Sensation Intact, Cranial Nerves 3-12 NL, Reflexes 2+ Extremities: No Clubbing, No Cyanosis, No Edema, Normal Pulses, No Tenderness/ Swelling Vascular: Normal Pulses, Pulses Symmetrical Current Medications: Current Medications Sig/Letty Start time Last Medication Dose Route Stop Time Status Admin Acetaminophen 650 MG Q6P PRN 03/07 1115 AC 03/07 PO 1859 Albuterol Sulfate 2 PUF Q4-6 PRN PRN 03/07 1500 AC INH Amiodarone HCl 200 MG DAILY 03/07 1214 AC 03/09 PO 0827 Ampicillin Sodium/ 3,000 MG Q12H 03/07 2230 AC 03/09 Sulbactam Sodium IV 2218 Sodium Chloride 100 ML Apixaban 2.5 MG BID 03/07 1214 AC 03/09 PO 2218 Aripiprazole 5 MG DAILY 03/07 1214 AC 03/09 PO 0827 Bumetanide 0.5 MG DAILY 03/08 1000 AC 03/09 PO 0827 Docusate Sodium 100 MG DAILY NEEDED PRN 03/08 1800 AC PO Duloxetine HCl 90 MG DAILY 03/07 1215 AC 03/09 PO 0827 Ketorolac 15 MG BID PRN 03/08 0945 AC Tromethamine IV 03/11 0944 Lidocaine 1 PAT DAILY 03/08 1000 AC 03/09 EXT 0826 Lorazepam 0.25 MG BID PRN 03/07 1215 AC PO 03/14 1214 Melatonin 5 MG ONCE ONE 03/09 0930 DC 03/09 PO 03/09 0931 1006 Metoprolol Tartrate 12.5 MG BID 03/07 1215 AC 03/09 PO 2218 Valacyclovir HCl 500 MG AT BEDTIME 03/07 2200 AC 03/09 PO 2217 Last 24 Hrs of Lab/Maxim Results Last 24 Hrs of Labs/Mics: Laboratory Tests 03/10/17 0700: Anion Gap 13, Estimated GFR > 60, BUN/Creatinine Ratio 18.3, CBC w Diff Pending, WBC Pending, RBC Pending, Hgb Pending, Hct Pending, MCV Pending, MCH Pending, RDW Pending, Plt Count Pending, MPV Pending, PUBS MCHC Pending Assessment/Plan Assessment: 86-year-old lady with a PMH of stage I diastolic dysfunction (echo 2013 with LVEF 60-65%), pulmonary hypertension (RV systolic pressure > 55 mmHg), atrial fibrillation on Eliquis, anxiety, depression, abdominal aortic aneurysm, osteoporosis of right shoulder, recent diagnosis of bronchiectasis and pneumonia sputum culture positive for ESBL inOctober 2016, readmission in November 2016 for diarhhea, found to be negative for C. Diff on PCR, with symptoms thought to be 2 /2 Movantik who presents to the ED today with c/o back pain, and altered mental status, difficulty breathing, chest pain and purulent productive cough at home. Vitals at the time of admission blood pressure 121/57, respiratory rate of 18, pulse 74, afebrile saturating 91% on room air and was placed on 2.0 L of oxygen via nasal cannula after which her saturations improved to 96%. Labs pertinent for leukocytosis with a white blood cell count of 19,400, normal H&H of 14.2/42.7, normal MCV of 89.8 with platelet count 280,000. Serum chemistries revealed a sodium of 139, potassium of 3.8, bicarbonate of 26, BUN 21 with a creatinine of 0.8. Serum glucose elevated to 113, lactic acid elevated at 3.7. LFTs revealed total bili of 0.8 AST/ALT of 38/37, alkaline phosphatase of 129, first set of troponin 0.02. UA not received. Chest x-ray was done which showed stable right upper lobe airspace opacity, no acute interval change EKG revealed: NSR, HR: 66, ?LAD, ST-T depressions in V4-V6 unchanged; poor R wave progression, LVH In the ER she received Unasyn 3000 mg IV 1 and a normal saline bolus of 1000ml x1. Assessment and plan #Acute hypoxic respiratory failure - 2/2 aspiration pneumonia - Saturating 93% on RA. Will check ambulatory pulse oximetry, if does not desaturate, will discharge her home laetr today. - Continue Unasyn 3000mg Q12 IV renally adjusted to cover for aspiration PNA and ESBL with transition to PO Augmentin on discharge. - F/U lower respiratory culture, blood cultures x2 - She underwent a swallow eval and is on mechanical soft and nectar thick - Continue to maintain on aspiration precautions - TRC/Nebs as needed - Urinary antigen for Legionella and Strep pneumonia were negative - F/U rces from Pulm #Toxic encepahlopathy - 2/2 aspiration pneumonia - Improved - Continue to avoid opiods and continue Lidoderm patch as well as Toradol. - Continue to monitor and avoid delirium triggers including constipation, re- oirent her to surroundings. #Hypokalemia Replete with K-Shalonda #Lactic acidosis - Resolved - 2/2 infection #Afib on ELiquis - Continue on Eliquis 2.5mg BID, Lopressor 12.5mg BID PO, and Amiodarone 200mg PO daily, Bumex # Depression and anxiety - Continue on Duloxetine 90mg daily, Abilify 5mg daily, Lorazepam 0.25mg BID PO PRN - Hx of encephalitis - On prophylactic Valtrex 500mg PO at [facility] - DVT prophylaxis - On Eliquis - Diet - Mechanical soft and nectar - Code status - DNR/DNI Problem List: 1. Aspiration pneumonia Pain Ratin Pain Location: n/a Pain Goal: Remain pain free Pain Plan: lidoderm patch Tomorrow's Labs & Rationales: n/a Consulting Request: Consulting Specialty: Pulmonary Disease
[2017-03-10 08:14] VITALS: BP 148/72
[2017-03-10 08:57] LABS: ABSOLUTE BASOPHIL COUNT 0 /CUMM (0.0-0.2); ABSOLUTE EOSINOPHIL COUNT 0 /CUMM (0.0-0.7); ABSOLUTE GRANULOCYTE CT 7.5 /CUMM (1.4-6.5); ABSOLUTE LYMPH COUNT 1.2 /CUMM (1.2-3.4); ABSOLUTE MONOCYTE COUNT 0.6 /CUMM (0.10-0.60); BASOPHIL % 0.3 % (0.0-2.0); EOSINOPHIL % 0.2 % (0-5); GRANULOCYTE % 79.8 % (42.2-75.2); HEMATOCRIT 39.2 % (37-47); MEAN CORPUSCULAR HGB 30.1 PG (27.0-31.0); MEAN CORPUSCULAR HGB CONC 33.2 G/DL (33.0-37.0); MEAN CORPUSCULAR VOLUME 90.6 FL (81.0-99.0); PLATELET COUNT 282 /CUMM (130-400); RBC DISTRIBUTION WIDTH 14.3 % (11.5-14.5); RED BLOOD CELL CT 4.32 /CUMM (4.20-5.40); WHITE BLOOD CELL COUNT 9.4 /CUMM (4.8-10.8)
--- NOTE | 2017-03-10 09:14 | Discharge Summary ---
Visit Information Visit Dates Admission Date: 03/07/17 Discharge Date: 03/10/17 Hospital Course Course Attending Physician: ROSHAN LEBLANC M.D Primary Care Physician: MICHELLE HENDRICKS,MARINO Carty Consulting Request: Consulting Specialty: Pulmonary Disease Hospital Course: 86-year-old lady with a PMH of stage I diastolic dysfunction (echo 2013 with LVEF 60-65%), pulmonary hypertension (RV systolic pressure > 55 mmHg), atrial fibrillation on Eliquis, anxiety, depression, abdominal aortic aneurysm, osteoporosis of right shoulder, recent diagnosis of bronchiectasis and pneumonia sputum culture positive for ESBL inOctober 2016, readmission in November 2016 for diarhhea, found to be negative for C. Diff on PCR, with symptoms thought to be 2 /2 [place] who presents to the ED today with c/o back pain, and altered mental status, difficulty breathing, chest pain and purulent productive cough at home. Vitals at the time of admission blood pressure 121/57, respiratory rate of 18, pulse 74, afebrile saturating 91% on room air and was placed on 2.0 L of oxygen via nasal cannula after which her saturations improved to 96%. Labs pertinent for leukocytosis with a white blood cell count of 19,400, normal H&H of 14.2/42.7, normal MCV of 89.8 with platelet count 280,000. Serum chemistries revealed a sodium of 139, potassium of 3.8, bicarbonate of 26, BUN 21 with a creatinine of 0.8. Serum glucose elevated to 113, lactic acid elevated at 3.7. LFTs revealed total bili of 0.8 AST/ALT of 38/37, alkaline phosphatase of 129, first set of troponin 0.02. UA not received. Chest x-ray was done which showed stable right upper lobe airspace opacity, no acute interval change EKG revealed: NSR, HR: 66, ?LAD, ST-T depressions in V4-V6 unchanged; poor R wave progression, LVH In the ER she received Unasyn 3000 mg IV 1 and a normal saline bolus of 1000ml x1. She was admitted to General Medicine and the following problems were addressed: #Aspiration Pneumonia - Pulmonary consult with Johan Hyatt MD was obtained and She was started on Unasyn 3000 mg every 12 was adjusted for renal function to treat for aspiration pneumonia as well as history of ESBL in the past and was transitioned to by mouth Augmentin upon discharge to complete a total of 10 day course of antibiotics. Her blood cultures 2 remain negative. She also underwent a swallow eval and was started on mechanical soft and nectar thick diet. She was maintained on aspiration precautions. Of note her urinary antigen for Legionella and strep pneumo were negative. #Confusion - Patient was altered when she presented to the ER. This was thought to be secondary to 2/2 aspiration pneumonia. Her mentation continued to improve. We also with opioids and placed her on a Lidoderm patch as well as Toradol. Upon discharge her mentation had resumed to baseline. Family reports that her mental status waxes and wanes at baseline. #Hypokalemia In the setting of decreased by mouth intake. This was repleted with potassium supplements. She should have a repeat BEP within a week of discharge to follow- up for her serum sodium and potassium. #Lactic acidosis -She had an elevated lactic acid when she presented to the ER. This subsequently resolved on hydration with IV fluids and was thought to be secondary to infection. #Afib on ELiquis She was continued on Eliquis 2.5mg BID, Lopressor 12.5mg BID PO, and Amiodarone 200mg PO daily, and Bumex 2.5 mg daily. # Depression and anxiety - She was continued on Duloxetine 90mg daily, Abilify 5mg daily, Lorazepam 0.25mg BID PO PRN - Hx of encephalitis - She was continued on prophylactic Valtrex 500mg PO at betdtime Complications: None Allergies: Coded Allergies: Iodinated Contrast- Oral and IV Dye (IODINATED CONTRAST MEDIA - IV DYE) (Severe, HEART STOPPED 03/07/17) morphine (Severe, COLLAPSE 03/07/17) Significant Procedures: SERVICE DATE: 03/07/17 EXAM TYPE: RAD - XRY-CHEST XRAY, ONE VIEW ONLY FINDINGS: Stable cardiomediastinal silhouette. Hyperinflated lungs noted again. Stable opacity noted in the right medial apical segment similar to the previous examination. This was also assessed with CT chest. No acute airspace opacity. Prominence of the pulmonary markings represents a chronic change. Stable calcific densities noted in the right infrahilar region.. Status post right shoulder arthroplasty. IMPRESSION: Stable right upper lobe airspace opacity. No acute interval change. Disposition Summary Disposition Principal Diagnosis: - Aspiration Pneumonia - Hypokalemia Additional Diagnosis: Dementia Afib on Eliquis Depression and Anxiety Hx of encephalitis Discharge Disposition: home health services Discharge Instructions General Discharge Information Code Status: Do Not Resucitate/Intubat Patient's Diet: - Mechanical soft and nectar Patient's Activity: As tolerated Follow-Up Instructions/Appts: Please follow up with your primary care phsyician in one week. Please complete the ocurse of antibitocs as directed and maintain aspiration precautions at all times while feeding. Please have a repeat BEP in one week to check serum potassium. Medications at Discharge Discharge Medications: Continue taking these medications: Amiodarone HCl (Amiodarone HCl) 200 MG TABLET 1 Tablet ORAL DAILY Comments: Last Taken:03/10/17 Time:9AM Bumetanide (Bumetanide) 0.5 MG TABLET 1 Tablet ORAL DAILY Instructions: HOLD IF PATIENT HAS DIARRHEA > 2-3 BM A DAY Comments: Last Taken:03/10/17 Time:9AM Aripiprazole (Abilify) 5 MG TABLET 1 Tablet ORAL DAILY Comments: Last Taken:03/10/17 Time:9AM Valacyclovir Hydrochloride (Valtrex) 500 MG TABLET 1 Tablet ORAL AT BEDTIME Comments: Last Taken:03/09/17 Time: 10PM Hydrocodone/Acetaminophen (Hydrocodon-Acetaminoph 7.5-300) 7.5 MG-300 MG TABLET 1 Tablet ORAL EVERY 8 HOURS NEEDED as needed for PAIN Comments: Last Taken:03/10/17 [id number] Duloxetine Hydrochloride (Cymbalta) 30 MG CAPSULE.DR 90 Milligram ORAL DAILY Comments: Last Taken:03/10/17 Time:9AM Apixaban (Eliquis) 2.5 MG TABLET 1 Tablet ORAL TWICE DAILY Comments: Last Taken:03/10/17 Time:9AM Metoprolol Tartrate (Metoprolol Tartrate) 25 MG TABLET 0.5 Tablet ORAL TWICE DAILY Comments: Last Taken:12/02/16 Time:1100 Albuterol Sulfate (Proair Hfa) 90 MCG HFA.AER.AD 2 Puff Inhale through mouth EVERY 4-6 HOURS NEEDED as needed for SOB Qty = 60 Comments: Last Taken:03/10/17 Time:9AM Lorazepam (Ativan) 0.5 MG TABLET 0.5 Tablet ORAL 2 x Daily as needed as needed for ANXIETY Qty = 30 Comments: Last Taken: Time:NOT GIVEN ON THIS ADMISSION Start taking the following new medications: Amoxicillin/Potassium Clav (Augmentin 875-125 Tablet) 875 MG-125 MG TABLET 1 Tablet ORAL TWICE DAILY Qty = 14 No Refills Instructions: . Comments: Last Taken: Time:ALTERNATIVE FORM GIVEN TO PATIENT (INTRAVENOUS) Lidocaine (Lidoderm) 5 % ADH..PATCH 1 Patch ON SKIN DAILY as needed for BACK PAIN Qty = 60 No Refills Instructions: . Comments: Last Taken:03/10/17 Time:9AM Copies To: CHET MALLORY DO; MICHELLE HENDRICKS,MARINO HYATT MD,JOHAN Attending MD Review Statement Documenting Attending: ROSHAN LEBLANC M.D Other Findings: Patient was discharged home in stable condition.
[2017-03-10] MEDS ORDERED: LIDODERM1 EACH EXT ×2 (09:53→10:11)
[2017-03-10] MEDS ORDERED: AUGMENTIN 875-1 EACH PO (10:11)
--- NOTE | 2017-03-10 11:39 | PN- Pulmonary ---
Subjective HPI/Critical Care Issues: pt seen and examined anticipating dc with home health services stable respiratory status Objective Current Medications: Current Medications Sig/Letty Start time Last Medication Dose Route Stop Time Status Admin Acetaminophen 650 MG Q6P PRN 03/07 1115 AC 03/07 PO 1859 Acetaminophen/ 1.5 TAB ONCE ONE 03/10 1000 DC 03/10 Hydrocodone Bitart PO 03/10 1001 0953 Albuterol Sulfate 2 PUF Q4-6 PRN PRN 03/07 1500 AC INH Amiodarone HCl 200 MG DAILY 03/07 1214 AC 03/10 PO 0813 Ampicillin Sodium/ 3,000 MG Q12H 03/07 2230 AC 03/10 Sulbactam Sodium IV 0814 Sodium Chloride 100 ML Apixaban 2.5 MG BID 03/07 1214 AC 03/10 PO 0813 Aripiprazole 5 MG DAILY 03/07 1214 AC 03/10 PO 0814 Bumetanide 0.5 MG DAILY 03/08 1000 AC 03/10 PO 0813 Docusate Sodium 100 MG DAILY NEEDED PRN 03/08 1800 AC PO Duloxetine HCl 90 MG DAILY 03/07 1215 AC 03/10 PO 0813 Ketorolac 15 MG BID PRN 03/08 0945 AC Tromethamine IV 03/11 0944 Lidocaine 1 PAT DAILY 03/08 1000 AC 03/10 EXT 0812 Lorazepam 0.25 MG BID PRN 03/07 1215 AC PO 03/14 1214 Metoprolol Tartrate 12.5 MG BID 03/07 1215 AC 03/10 PO 0814 Potassium Chloride 40 MEQ ONCE ONE 03/10 0915 DC 03/10 PO 03/10 0916 0955 Valacyclovir HCl 500 MG AT BEDTIME 03/07 2200 AC 03/09 PO 2217 Vital Signs & I&O Last 24 Hrs of Vitals and I&O: Vital Signs Date Time Temp Pulse Resp B/P B/P Pulse O2 O2 Flow FiO2 Mean Ox Delivery Rate 03/10 08 148/72 03/10 813 148/72 03/10 06 98.0 73 20 152/80 93 Room Air 03/09 2254 98.5 89 20 150/74 92 Room Air 03/09 2218 89 150/74 03/09 1600 Room Air 03/09 1502 97.3 82 20 162/70 93 Room Air Intake & Output 03/10 1600 03/10 0800 07/13 0000 Intake Total 320 Output Total 250 300 Balance -250 20 Intake, IV 140 Intake, Oral 180 Number 0 Bowel Movements Output, Urine 250 300 Exam Other Physical Findings: General - Alert, awake HEENT - normocephalic, atraumatic Cardiovascular - S1, S2 Lungs - rare rhonchi Abdomen - soft, bowel sounds positive, no tenderness Extremities - without edema or cyanosis Results Last 24 Hrs of Lab Results: Laboratory Tests 03/10/17 0700: Anion Gap 13, Estimated GFR > 60, BUN/Creatinine Ratio 18.3, CBC w Diff NO MAN DIFF REQ, RBC 4.32, MCV 90.6, MCH 30.1, RDW 14.3, MPV 8.0, Gran % 79.8 H, Lymphocytes % 13.1 L, Monocytes % 6.6, Eosinophils % 0.2, Basophils % 0.3, Absolute Granulocytes 7.5 H, Absolute Lymphocytes 1.2, Absolute Monocytes 0.6, Absolute Eosinophils 0, Absolute Basophils 0, PUBS MCHC 33.2 Impression/Plan Impression/Plan Impression/Plan: Impression 86 year old woman. * Consultation for bronchiectasis and hypoxemia in the setting of aspiration. * Leukocytosis improving Plan - TRC/Nebs - aspiration precautions - cont abx - head of bed elevated to 30 degrees - o2 checks to determine future o2 needs - on eliqulayne for branfib - dc planning call if any issues or questions DVT prophylaxis at all times
== END 2017-03-10 12:43 | disposition home health service (06) | DRG 178 ==
LOC: ERH 07:18 → ERHI 10:12 → 2NA 10:12 → EDBEDREQ 11:45 → ENRESERV 18:50 → ENTRNSPT 19:09 → 2NA 19:31 → CMPTRNSPT 20:10 → ENPENDDIS 03-10 10:02 → 2NA 03-10 12:43
PROVIDERS: Emergency Medicine; Internal Medicine Infectious Disease; ADMIT Internal Medicine
DX: J69.0 Pneumonitis due to inhalation of food and vomit (principal); R64 Cachexia; E87.2 Acidosis; I50.32 Chronic diastolic (congestive) heart failure; I11.0 Hypertensive heart disease with heart failure; I27.2 Other secondary pulmonary hypertension; Z68.1 Body mass index [BMI] 19.9 or less, adult; I48.91 Unspecified atrial fibrillation; Z79.01 Long term (current) use of anticoagulants; E87.6 Hypokalemia; F32.9 Major depressive disorder, single episode, unspecified; F41.9 Anxiety disorder, unspecified; F03.90 Unspecified dementia, unspecified severity, without behavioral disturbance, psychotic disturbance, mood disturbance, and anxiety; M81.0 Age-related osteoporosis without current pathological fracture; K21.9 Gastro-esophageal reflux disease without esophagitis
CPT/HCPCS: 2NAP; 81001; 82436; 87040; 87086; 87449; 87450; 93005; 93010; 96374; 97116-GO; 97161-GP; 97530-GO; J1630; J3490

== ENCOUNTER 2017-03-24 06:39 | Emergency (ER) | payer OTHER, MEDICARE ==
[~2017-03-24] VITALS: Ht 152.4 cm; Wt 34.9 kg
[~2017-03-24 06:39] MED LIST changes: +ATIVAN0.5 M1 PO; +AUGMENTIN 875-1 EACH PO; +LIDODERM1 EACH EXT; +PROAIR HFA8.5 GM INH
--- NOTE | 2017-03-24 07:33 | ED DYSPNEA/ASTHMA COMPLAINT ---
History of Present Illness General Chief Complaint: Dyspnea (COPD, CHF, Other) Stated Complaint: DIFFICULTY BREATHING Source: patient, family, old records Exam Limitations: no limitations Vital Signs & Intake/Output Vital Signs & Intake/Output Vital Signs Date Time Temp Pulse Resp B/P B/P Pulse O2 O2 Flow FiO2 Mean Ox Delivery Rate 03/24 1039 96.7 62 18 143/67 94 03/24 0900 96.8 68 138/64 93 03/24 0847 95 Room Air 03/24 0652 97.9 60 16 174/73 95 Room Air Allergies Coded Allergies: Iodinated Contrast- Oral and IV Dye (IODINATED CONTRAST MEDIA - IV DYE) (Severe, HEART STOPPED 03/07/17) morphine (Severe, COLLAPSE 03/07/17) Reconcile Medications Albuterol Sulfate (Proair Hfa) 90 MCG HFA.AER.AD 2 PUF INH Q4-6 PRN PRN SOB ( Reported) Amiodarone HCl 200 MG TABLET 1 TAB PO DAILY AFIB (Reported) Apixaban (Eliquis) 2.5 MG TABLET 1 TAB PO BID BLOOD THINNER (Reported) Aripiprazole (Abilify) 5 MG TABLET 1 TAB PO DAILY ANXIETY (Reported) Bumetanide 0.5 MG TABLET 1 TAB PO DAILY WATER PILL (Reported) HOLD IF PATIENT HAS DIARRHEA > 2-3 BM A DAY Duloxetine Hydrochloride (Cymbalta) 30 MG CAPSULE.DR 90 MG PO DAILY MENTAL HEALTH (Reported) Hydrocodone/Acetaminophen (Hydrocodon-Acetaminoph 7.5-300) 7.5 MG-300 MG TABLET 1 TAB PO Q8P PRN PAIN (Reported) Lidocaine (Lidoderm) 5 % ADH..PATCH 1 PAT EXT DAILY PRN BACK PAIN . Lorazepam (Ativan) 0.5 MG TABLET 0.5 TAB PO BIDP PRN ANXIETY (Reported) Metoprolol Tartrate 25 MG TABLET 0.5 TAB PO BID HEART (Reported) Valacyclovir Hydrochloride (Valtrex) 500 MG TABLET 1 TAB PO AT BEDTIME SHINGLES PREVENTION (Reported) Triage Note: 86YO FEMALE TO TAFT THEN TO 1 W/CO DIFF BREATHING THAT AWOKE HER AT 0430 THIS AM. RECENTLY DCED FROM [facility] AFTER TX FOR PNEUMONIA. Triage Nurses Notes Reviewed? yes HPI: Patient states that she woke up at 4:00 in the morning and was watching TV and at 5:00 in the morning she had relatively sudden onset of feeling like she could not catch her breath. The triage note states that the symptoms woke her up from sleep at 4:30 however the patient denies this. Patient states she was watching TV when the symptoms started. Patient denies any chest pain however states that when she was assisted from the wheelchair to the stretcher she felt a pulling sensation in her right lower rib cage. Since then she has been having a sharp pain in her right lower rib cage which he rates as a 4 out of 10. The pain increases with inspiration. There is no radiation. Past History Travel History Traveled to [place] past 21 day No Medical History Any Pertinent Medical History? see below for history Neurological: NONE EENT: NONE Cardiovascular: AFIB, CHF, hypertension, ANGIOPLASTY Respiratory: pneumonia Gastrointestinal: GERD Hepatic: NONE Renal: NONE Musculoskeletal: osteoporosis, CHRONIC RIGHT SHOULDER DEFORMITY, HISTORY OF RIGHT HUMERUS FRACTURE Psychiatric: chronic pain disorder, depression Blood Disorders: PE Cancer(s): NONE Other Medical Hx: Shingles History of MRSA: No History of VRE: No History of CDIFF: No Surgical History Surgical History: ANGIOPLASTY right lower extremity right shoulder surgery Psychosocial History Who do you live with Patient/Self Services at Home [employer] What is your primary language [place]ralt[place] Tobacco Use: Quit >30 days ago ETOH Use: denies use Illicit Drug Use: denies illicit drug use Family History Family History, If Any: MOTHER FH: CAD (coronary artery disease) FATHER FH: CAD (coronary artery disease) Hx Contributory? No Review of Systems Review of Systems Constitutional: Reports: no symptoms. EENTM: Reports: no symptoms. Respiratory: Reports: see HPI, short of breath. Cardiovascular: Reports: no symptoms. GI: Reports: no symptoms. Genitourinary: Reports: no symptoms. Musculoskeletal: Reports: no symptoms. Skin: Reports: no symptoms. Neurological/Psychological: Reports: no symptoms. Hematologic/Endocrine: Reports: no symptoms. Immunologic/Allergic: Reports: no symptoms. All Other Systems: Reviewed and Negative Physical Exam Physical Exam General Appearance: well developed/nourished, alert, awake, mild distress Head: atraumatic Eyes: Bilateral: PERRL, EOMI. Ears, Nose, Throat: normal pharynx, normal ENT inspection, hearing grossly normal Neck: normal inspection, supple, full range of motion, NO JVD Respiratory: normal breath sounds, chest non-tender, no respiratory distress, lungs clear Cardiovascular: regular rate/rhythm, normal peripheral pulses Gastrointestinal: normal bowel sounds, soft, non-tender Extremities: normal inspection, normal capillary refill, normal range of motion, pedal edema (TRACE) Neurologic/Psych: no motor/sensory deficits, awake, alert, oriented x 3, normal mood/affect Lymphatic: no anterior cervical tianna Core Measures ACS in differential dx? No Severe Sepsis Present: No Septic Shock Present: No Progress Differential Diagnosis: asthma, AMI, bronchitis, CHF, COPD, pulmonary embolism, pneumonia, pneumothorax Plan of Care: Orders Procedure Date/time Status Heart Healthy Diet 03/24 L Active TROPONIN LEVEL 03/24 1030 Complete EKG 03/24 1030 Active TROPONIN LEVEL 03/24 0653 Complete LIPASE 03/24 0653 Complete HEPATIC FUNCTION PANEL 03/24 0653 Complete CBC WITHOUT DIFFERENTIAL 03/24 653 Complete BASIC METABOLIC PANEL 03/24 0653 Complete AMYLASE 03/24 653 Complete EKG 03/24 0640 Active Laboratory Tests 03/24/17 1035: Troponin I < 0.01 03/24/17 0745: Anion Gap 11, Estimated GFR > 60, BUN/Creatinine Ratio 30.0 H, Glucose 99, Calcium 9.2, Total Bilirubin 0.6, Direct Bilirubin 0.3, AST 34, ALT 39, Alkaline Phosphatase 156 H, Troponin I < 0.01, Total Protein 7.7, Albumin 3.9, Amylase 76, Lipase 276, CBC w Diff NO MAN DIFF REQ, RBC 4.40, MCV 90.2, MCH 29.8, RDW 14.8 H, MPV 7.6, Gran % 81.2 H, Lymphocytes % 12.2 L, Monocytes % 6.0, Eosinophils % 0.3, Basophils % 0.3, Absolute Granulocytes 8.6 H, Absolute Lymphocytes 1.3, Absolute Monocytes 0.6, Absolute Eosinophils 0, Absolute Basophils 0, PUBS MCHC 33.0 Diagnostic Imaging: Viewed by Me: Radiology Read. Discussed w/RAD: Radiology Read. CXR Impression: PATIENT: SANDHYA COLLINS PRESENT AGE: 86 PATIENT ACCOUNT NO: [id number] : 29 LOCATION: [facility] ORDERING PHYSICIAN: MORGAN BUENO MD SERVICE DATE: 03/24/17 EXAM TYPE: RAD - XRY- PORTABLE CHEST XRAY XR PORTABLE CHEST CLINICAL INFORMATION: Dyspnea. COMPARISON: Chest x-ray March 07, 2017. TECHNIQUE: Portable frontal view of the chest was obtained. FINDINGS: Lungs are hyperinflated. There is no focal consolidation, pleural effusion, or pneumothorax. There is a stable appearing airspace opacity at the right lung apex that has been recently assessed with chest CT. There are no new remote pulmonary airspace opacities. Calcific densities in the right infrahilar region are again noted. Cardiomediastinal silhouette is stable. No acute osseous findings. Right humeral prosthesis. IMPRESSION: Stable right upper lobe airspace opacity. No new remote pulmonary airspace opacities. DICTATED BY: FELIX TURNER MD DATE/TIME DICTATED:03/24/17751 OUT PATIENT THERAPIST:OZZIE DATE/TIME TRANSCRIBED:03/24/17751 CONFIDENTIAL, DO NOT COPY WITHOUT APPROPRIATE AUTHORIZATION. <Electronically signed in Other Vendor System> SIGNED BY: FELIX TURNER MD 03/24/17756 Initial ED EKG: SR, NONSPECIFIC LATERAL T WAVE CHANGES, UNCHARNGED FROM PRIOR EKG Prior EKG: unchanged Repeat EKG: unchanged Rhythm Strip: normal sinus rhythm Comments: Patient is feeling much better and wants to go home. Awaiting repeat troponin. Patient will ambulate. Patient's O2 sat remains 92-93% which is the level that it was when she was hospitalized. Patient ambulated in the emergency department with the use of a walker. Patient states that she is better and wants to go home. Departure Departure Disposition: HOME OR SELF CARE Condition: Stable Clinical Impression Primary Impression: Dyspnea Referrals: MICHELLE HENDRICKS,MARINO Carty (PCP/Family) Additional Instructions: REUTRN IF SYMPTOMS WORSEN OR FOR ANY CONCERNS Departure Forms: Customer Survey General Discharge Information Critical Care Note Critical Care Note Critical Care Time: non-applicable
[2017-03-24 07:55] LABS: ABSOLUTE BASOPHIL COUNT 0 /CUMM (0.0-0.2); ABSOLUTE EOSINOPHIL COUNT 0 /CUMM (0.0-0.7); ABSOLUTE GRANULOCYTE CT 8.6 /CUMM (1.4-6.5); ABSOLUTE LYMPH COUNT 1.3 /CUMM (1.2-3.4); ABSOLUTE MONOCYTE COUNT 0.6 /CUMM (0.10-0.60); BASOPHIL % 0.3 % (0.0-2.0); EOSINOPHIL % 0.3 % (0-5); GRANULOCYTE % 81.2 % (42.2-75.2); HEMATOCRIT 39.6 % (37-47); MEAN CORPUSCULAR HGB 29.8 PG (27.0-31.0); MEAN CORPUSCULAR VOLUME 90.2 FL (81.0-99.0); MEAN PLATELET VOLUME 7.6 FL (7.4-10.4); PLATELET COUNT 270 /CUMM (130-400); RBC DISTRIBUTION WIDTH 14.8 % (11.5-14.5); WHITE BLOOD CELL COUNT 10.6 /CUMM (4.8-10.8)
--- NOTE | 2017-03-24 07:57 | RADIOLOGY REPORT ---
XR PORTABLE CHEST CLINICAL INFORMATION: Dyspnea. COMPARISON: Chest x-ray March 07, 2017. TECHNIQUE: Portable frontal view of the chest was obtained. FINDINGS: Lungs are hyperinflated. There is no focal consolidation, pleural effusion, or pneumothorax. There is a stable appearing airspace opacity at the right lung apex that has been recently assessed with chest CT. There are no new remote pulmonary airspace opacities. Calcific densities in the right infrahilar region are again noted. Cardiomediastinal silhouette is stable. No acute osseous findings. Right humeral prosthesis. IMPRESSION: Stable right upper lobe airspace opacity. No new remote pulmonary airspace opacities.
[2017-03-24 11:48] VITALS: BP 143/67
== END 2017-03-24 11:51 ==
LOC: ERH 06:39
PROVIDERS: Pediatrics
DX: R06.00 Dyspnea, unspecified (principal)
CPT/HCPCS: 93005; 93010